=== PATIENT | female | born 1940 | race Caucasian/White ===

== ENCOUNTER 2017-09-13 16:08 | Inpatient (IN) | payer MEDICARE, MEDICAID ==
--- NOTE | 2017-09-13 17:07 | ED Physician Chart ---
ED Chief Complaint/HPI - Patient Information Date Seen:: 09/13/17 Time Seen:: 16:50 Chief Complaint:: hip pain History of Present Illness:: Patient tried to walk 2 weeks ago and fell. She has a bruise on her left breast area. She's had bilateral hip pain since 2007 when she had hip surgery. Patient is barely ambulatory. She mostly uses a wheelchair. For the last 9 months patient has been taken care at her daughter's house but the daughter is no longer able to take care of the patient and she is here for care home placement. Allergies:: Allergies Allergy/AdvReac Type Severity Reaction Status Date / Time codeine Allergy Verified 09/13/17 17:02 ondansetron Allergy Verified 09/13/17 17:00 [From Zofran (as hydrochloride)] Penicillins [PCN] Allergy Verified 09/13/17 17:00 Sulfa (Sulfonamide Allergy Verified 09/13/17 17:01 Antibiotics) tramadol Allergy Verified 09/13/17 17:01 Vitals:: Vital Signs - 8 hr 09/13/17 16:17 Temp 98.8 F HR 118 RR 18 BP 131/84 O2 Sat % 96 Historian:: Patient, Family Member Review:: Nurse's Note Reviewed ED Review of Systems - Review of Systems General/Constitutional: No fever, No chills, No weight loss, No weakness, No diaphoresis, No edema, No loss of appetite Skin: No skin lesions, No rash, No bruising Head: No headache, No light-headedness Eyes: No loss of vision, No pain, No diplopia ENT: No earache, No nasal drainage, No sore throat, No tinnitus Neck: No neck pain, No swelling, No thyromegaly, No stiffness, No mass noted Cardio Vascular: No chest pain, No palpitations, No PND, No orthopnea, No edema Pulmonary: No SOB, No cough, No sputum, No wheezing GI: No nausea, No vomiting, No diarrhea, No pain, No melena, No hematochezia, No constipation, No hematemesis G/U: No dysuria, No frequency, No hematuria Musculoskeletal: Bone or joint pain, No back pain, No muscle pain, Other (hip and chest wall pain) Endocrine: No polyuria, No polydipsia Psychiatric: No prior psych history, No depression, No anxiety, No suicidal ideation Hematopoietic: No bruising, No lymphadenopathy Allergic/Immuno: No urticaria, No angioedema Neurological: No syncope, No focal symptoms, No weakness, No paresthesia, No headache, No seizure, No dizziness, No confusion, No vertigo ED Past Medical History - Past Medical History Past Medical History: Asthma/COPD Family History: Diabetes Melitus Social History: Other (formerly smoked and used alcohol) Surgical History: Appendectomy, Hysterectomy Psychiatricy History: None Medication: Reviewed Family Medical History - Family Member Mother History Unknown: Yes ED Physical Exam - Physical Examination General/Constitutional: Awake, Well-developed, well-nourished, Alert, No distress, GCS 15, Non-toxic appearing, Ambulatory Head: Atraumatic Eyes: Lids, conjuctiva normal, PERRL, EOMI Skin: Nl inspection, No rash, No skin lesions, No ecchymosis, Well hydrated, No lymphadenopathy ENMT: External ears, nose nl, Nasal exam nl, Lips, teeth, gums nl Neck: Nontender, Full ROM w/o pain, No JVD, No nuchal rigidity, No bruit, No mass, No stridor Respiratory: Nl effort/Exclusion, Clear to Auscultation, No Wheeze/Rhonchi/Rales Cardio Vascular: RRR, No murmur, gallop, rubs, NL S1 S2 GI: No tenderness/rebounding/guarding, No organomegaly, No hernia, Normal BS's, Nondistended, No mass/bruits, No McBurney tenderness : No CVA tenderness Extremities: No tenderness or effusion, Full ROM, normal strength in all extremities, No edema, Normal digits & nails Neuro/Psych: Alert/oriented, DTR's symmetric, Normal sensory exam, Normal motor strength, Judgement/insight normal, Mood normal, Normal gait, No focal deficits Misc: Normal back, No paraspinal tenderness ED Labs/Radiology/EKG Results - Lab Results Results: Laboratory Results - last 24 hr 09/13/17 09/13/17 17:22 17:22 WBC 11.3 H RBC 3.77 L Hgb 10.2 L Hct 30.6 L MCV 81.3 MCH 27.2 MCHC Differential 33.4 RDW 19.1 Plt Count 295 MPV 8.1 Neutrophils % 77.5 Lymphocytes % 15.7 L Monocytes % 4.6 Eosinophils % 2.1 Basophils % 0.1 Sodium 139 Potassium 4.1 Chloride 107 Carbon Dioxide 24.6 Anion Gap 11.5 BUN 37 H Creatinine 1.1 Est GFR ( Amer) TNP Est GFR (Non-Af Amer) TNP BUN/Creatinine Ratio 33.6 Glucose 104 Calcium 9.1 Laboratory Results - last 24 hr 09/13/17 09/13/17 09/13/17 17:22 17:22 17:25 WBC 11.3 H RBC 3.77 L Hgb 10.2 L Hct 30.6 L MCV 81.3 MCH 27.2 MCHC Differential 33.4 RDW 19.1 Plt Count 295 MPV 8.1 Neutrophils % 77.5 Lymphocytes % 15.7 L Monocytes % 4.6 Eosinophils % 2.1 Basophils % 0.1 Sodium 139 Potassium 4.1 Chloride 107 Carbon Dioxide 24.6 Anion Gap 11.5 BUN 37 H Creatinine 1.1 Est GFR ( Amer) TNP Est GFR (Non-Af Amer) TNP BUN/Creatinine Ratio 33.6 Glucose 104 Calcium 9.1 Urine Source RANDOM Urine Color YELLOW Urine Clarity CLEAR Urine pH 5.5 Ur Specific [place] 1.025 Urine Protein TRACE Urine Glucose (UA) NEGATIVE Urine Ketones TRACE Urine Blood TRACE Urine Nitrate NEGATIVE Urine Bilirubin NEGATIVE Urine Urobilinogen 0.2 Ur Leukocyte Esterase SMALL H Urine RBC 0-2 Urine WBC 0-2 Ur Epithelial Cells FEW Urine Bacteria NONE SEEN - Radiology Results Results: Chest x-ray showed no acute disease; AP of the pelvis showed bilateral hip prosthesis in normal position ED Septic Shock - . Is Septic Shock (SBP<90, OR Lactate>4 mmol\L) present?: No - <6hrs of presentation: Vital Signs: Vital Signs - 8 hr 09/13/17 16:17 Temp 98.8 F HR 118 RR 18 BP 131/84 O2 Sat % 96 ED Reassessment (Disposition) - Diagnosis Diagnosis:: Leukocytosis; anemia; dehydration - Patient Disposition Admitted to:: Med/Surg
[2017-09-13 17:35] LABS: % BASOPHILS 0.1 % (0.0-2.0); % EOSINOPHILS 2.1 % (0.0-5.0); % LYMPHOCYTES 15.7 % (20.0-50.0); % MONOCYTES 4.6 % (2.0-10.0); % NEUTROPHILS 77.5 % (40.0-80.0); EOSINOPHILE ABSOLUTE 0.2 Th/cmm (0.1-0.4); HEMATOCRIT 30.6 % (41.0-60); HEMOGLOBIN 10.2 gm/dL (12-16); LYMPHOCYTE ABSOLUTE 1.8 Th/cmm (1.5-3.0); MEAN CELL VOLUME 81.3 fl (81-100); MEAN CORPUSCULAR HEMOGLOBIN 27.2 pg (27.0-31.0); MEAN CORPUSCULAR HGB CONC 33.4 pg (28.0-36.0); MEAN PLATELET VOLUME 8.1 fl; MONOCYTE ABSOLUTE 0.5 Th/cmm (0.3-1.0); NEUTROPHILE ABSOLUTE 8.8 Th/cmm (1.8-8.0); PLATELET COUNT 295 Th/cmm (150-400); RED BLOOD COUNT 3.77 Mil/cmm (3.80-5.20); RED CELL DISTRIBUTION WIDTH 19.1 % (11.5-20.0); WHITE BLOOD COUNT 11.3 Th/cmm (4.8-10.8)
[2017-09-13 17:48] LABS: URINE MICROSCOPIC INDICATED? YES; URINE SOURCE RANDOM
[2017-09-13 17:49] LABS: ANION GAP 11.5 (7.0-16.0); BUN - UREA NITROGEN 37 mg/dL (7-25); CALCIUM SERUM 9.1 mg/dL (8.6-10.3); CARBON DIOXIDE 24.6 mEq/L (21.0-31.0); CHLORIDE 107 mEq/L (98-107); CREATININE - SERUM 1.1 mg/dL (0.6-1.2); GLUCOSE 104 mg/dL (70-105); POTASSIUM SERUM 4.1 mEq/L (3.5-5.1); SODIUM SERUM 139 mEq/L (136-145)
[2017-09-13 17:51] LABS: URINE BILIRUBIN NEGATIVE (NEGATIVE); URINE BLOOD TRACE (NEGATIVE); URINE GLUCOSE (UA) NEGATIVE (NEGATIVE); URINE KETONE TRACE mg/dL (NEGATIVE); URINE LEUKOCYTE ESTERASE SMALL (NEGATIVE); URINE NITRATE NEGATIVE (NEGATIVE); URINE PH 5.5 (4.6 - 8.0); URINE PROTEIN TRACE mg/dL (NEGATIVE); URINE UROBILINOGEN 0.2 E.U./dL (0.2 - 1.0)
[2017-09-13 18:04] LABS: URINE COLOR YELLOW
[2017-09-13 18:05] LABS: URINE CLARITY CLEAR (CLEAR)
[2017-09-13 18:07] LABS: URINE BACTERIA NONE SEEN /hpf (NONE SEEN); URINE EPITHELIAL CELLS FEW /lpf (FEW); URINE RBC 0-2 /hpf (0-5); URINE WBC 0-2 /hpf (0-5)
[2017-09-13] MEDS ORDERED: Sodium Chloride 0.9% 1,000 ML IV ONE (18:35)
[2017-09-13] MEDS ORDERED: Ciprofloxacin 200mg Premix PB 200 MG/100 ML BAG IV ONE ×2 (20:17→21:04)
[2017-09-13] MEDS: Sodium Chloride 0.9% 1,000 ML IV SCH (23:35)
[2017-09-14] MEDS: INSULIN HUMAN REGULAR 100 UNITS/ML UNIT SUBQ SCH ×2 (00:47→07:41)
[2017-09-14 05:25] VITALS: BP 137/70
[2017-09-14 06:38] LABS: % BASOPHILS 0.4 % (0.0-2.0); % EOSINOPHILS 3.6 % (0.0-5.0); % LYMPHOCYTES 21.8 % (20.0-50.0); % MONOCYTES 6.7 % (2.0-10.0); % NEUTROPHILS 67.5 % (40.0-80.0); EOSINOPHILE ABSOLUTE 0.3 Th/cmm (0.1-0.4); HEMOGLOBIN 9.8 gm/dL (12-16); LYMPHOCYTE ABSOLUTE 1.9 Th/cmm (1.5-3.0); MEAN CELL VOLUME 80.8 fl (81-100); MEAN CORPUSCULAR HEMOGLOBIN 27.3 pg (27.0-31.0); MEAN CORPUSCULAR HGB CONC 33.7 pg (28.0-36.0); MONOCYTE ABSOLUTE 0.6 Th/cmm (0.3-1.0); NEUTROPHILE ABSOLUTE 5.9 Th/cmm (1.8-8.0); PLATELET COUNT 246 Th/cmm (150-400); RED BLOOD COUNT 3.59 Mil/cmm (3.80-5.20); RED CELL DISTRIBUTION WIDTH 18.8 % (11.5-20.0)
[2017-09-14 06:41] LABS: WHITE BLOOD COUNT 8.7 Th/cmm (4.8-10.8)
[2017-09-14 07:07] LABS: ALBUMIN 3.4 gm/dL (3.7-5.3); ALKALINE PHOSPHATASE 55 U/L (34-104); ANION GAP 9.7 (7.0-16.0); BILIRUBIN,TOTAL 0.4 mg/dL (0.3-1.0); BUN - UREA NITROGEN 30 mg/dL (7-25); CALCIUM SERUM 8.9 mg/dL (8.6-10.3); CARBON DIOXIDE 26.1 mEq/L (21.0-31.0); CHLORIDE 107 mEq/L (98-107); GLUCOSE 102 mg/dL (70-105); POTASSIUM SERUM 3.8 mEq/L (3.5-5.1); SGOT 13 U/L (13-39); SGPT/ALT 6 U/L (7-52); SODIUM SERUM 139 mEq/L (136-145); TOTAL PROTEIN,SERUM 6.9 gm/dL (6.0-8.3)
--- NOTE | 2017-09-14 08:05 | Diagnostic Imaging Report ---
CHEST X-RAY: AP view INDICATION: Pneumonia COMPARISON: None FINDINGS: Exam is limited due to body habitus. Suboptimal lung volumes are seen with chronic lung changes increased bibasilar lung markings. There may be bibasal pleural thickening. Heart size cannot be well assessed on this exam. Retrocardiac density is noted. Degenerative changes of the spine are noted with probable mild scoliosis. IMPRESSION: Suboptimal lung volumes with increased bibasilar markings which may be due to atelectasis versus less likely infiltrate. Possible hiatal hernia. If indicated, CT would further clarify
--- NOTE | 2017-09-14 08:14 | Diagnostic Imaging Report ---
Pelvis single view Indication: pain Comparison: none Findings: Bilateral hip arthroplasties are noted. Note that the distal femoral stems are incompletely visualized. No evidence of an acute fracture or hardware loosening. The SI joints demonstrate mild degenerative changes. Impression: Bilateral total hip arthroplasties. Note that the distal femoral stems are incompletely visualized on this exam. No evidence of an acute fracture x-ray evidence of hardware loosening. Consider additional views if indicated. In the setting of trauma, if clinical symptoms persist and there is continued concern for an occult fracture, follow up exams in 5-7 days is suggested.
[2017-09-14] MEDS ORDERED: Ciprofloxacin 200mg Premix PB 200 MG/100 ML BAG IV SCH (09:00)
[2017-09-14] MEDS ORDERED: Atorvastatin Calcium 10 MG TAB PO SCH (09:00)
--- NOTE | 2017-09-14 11:34 | History & Physical ---
ADMIT DATE: CHIEF COMPLAINT: Generalized weakness status post recent mechanical fall, ataxia and UTI. HISTORY OF PRESENT ILLNESS: The patient is a very pleasant 77-year-old lady, who apparently had a mechanical fall about 2 weeks ago while at home, landing on top her hospital bed bedside rail, hitting her left chest area. The patient went to [facility] where she was diagnosed with a chest wall trauma/bruising and a UTI. She was prescribed p.o. antibiotics and was sent home but since then, she has been complaining of worsening weakness and generalized tiredness. She also states that she had severe bilateral hip osteoarthritis--she underwent bilateral hip replacements in 2007, but since then has had chronic left hip pain despite the surgery. Also reports difficulty in ambulating given above, and thinks her recent fall was secondary to her chronic left hip pain and weakness. She came into the ED for the above-mentioned complaints, and current findings include a white count of 11.3 and a UA consistent with UTI. The patient was admitted to the medical/surgical floor for further management and care. PAST MEDICAL HISTORY: As noted above, history of bilateral hip osteoarthritis, DJD, essential hypertension, hyperlipidemia, vertigo, acid reflux disease, diabetes, morbid obesity. PAST SURGERIES: Bilateral hip replacement surgery back in 2007, also appendectomy and hysterectomy. FAMILY HISTORY: Positive for diabetes. SOCIAL HISTORY: Previous smoker and social drinker, currently none. Lives at home with family. ALLERGIES: She has allergies to multiple allergies including codeine, Zofran, penicillins, sulfa, tramadol. HOME MEDICATIONS: Amlodipine 5 q. day, atorvastatin 40 q. day, benazepril 40 q. day, hydrochlorothiazide 25 q. day, meclizine 25 q. 8 hours p.r.n. for dizziness, metoprolol with hydrochlorothiazide 50/12.5 q. day, naproxen 500 mg b.i.d., nitrofurantoin 100 b.i.d., omeprazole 40 q. day, Actos 45 q. day, sertraline 100 mg q. day, and simvastatin 40 at bedtime. REVIEW OF SYSTEMS: CONSTITUTIONAL: Generalized weakness and tiredness, imbalance. HEAD AND NECK: Occasional vertigo. CARDIAC: No chest pain, palpitations. PULMONARY: No cough or phlegm production. GASTROINTESTINAL: No bowel habit changes. GENITOURINARY: Mild UTI symptomatology including dysuria and frequency. NEUROLOGIC: She denies any syncopal episodes. No headaches. She does admit to imbalance/ataxia given her chronic left hip pain. PHYSICAL EXAMINATION: VITAL SIGNS: Temperature 98.3, pulse 67, respirations 18, BP 112/71, satting 95% on room air. GENERAL: She is a well-developed, obese female, not in acute distress. HEAD AND NECK: Normocephalic and atraumatic. Pupils are reactive to light. Extraocular movements are intact. Oropharynx is moist and clear. CARDIAC: Regular rate and rhythm with distant sounds. LUNGS: Clear to auscultation bilaterally. ABDOMEN: Soft, supple, nontender, nondistended, normoactive bowel sounds. LOWER EXTREMITY: There is no edema. NEUROLOGIC: Exam was not done, but she is nonfocal, able to move all 4 extremities. Cranial nerves 2-12 appear to be intact. LABORATORY DATA: White count 11.3, H and H 10/30. Chemistry was essentially within normal limits except for the BUN that was 30, mag 2.0. LFTs were essentially within normal limits. UA shows small leukocyte esterase, trace protein. DIAGNOSTICS: Chest x-ray shows suboptimal lung volumes with increased bibasilar markings, which may be due to atelectasis versus less likely infiltrate. There was a pelvic x-ray showing bilateral total hip arthroplasties. The distal femoral stems are incompletely visualized on this exam, but there is no evidence of acute fracture or evidence of hardware loosening. ASSESSMENT: 1. Acute on chronic debility. 2. Recent mechanical fall with left chest wall contusion/trauma. 3. Leukocytosis. 4. Urinary tract infection. 5. History of chronic ataxia secondary to persistent chronic left hip pain. 6. History of bilateral total hip arthroplasties secondary to severe osteoarthritis. 7. History of essential hypertension. 8. History of hyperlipidemia. 9. History of diabetes. PLAN: The patient has been admitted to the medical floor for further management and care. The patient has been placed on IV antibiotics and the patient's UA will be followed for cultures and sensitivities. She will be kept on her regular medications and a PT eval also will be ordered. I will discuss case with family for possible SNF placement. JOB# [id number] [facility]
[2017-09-14] MEDS: INSULIN ASPART, RECOMBINANT 100 UNITS/ML SUBQ SCH ×3 (13:14→21:08)
[2017-09-14] MEDS: Levofloxacin 500mg/100mL 500 MG/100 ML BAG IV SCH (13:29)
[2017-09-14] MEDS: Sodium Chloride 0.9% 1,000 ML IV SCH (18:49)
[2017-09-14 20:25] LABS: A1C % 5.1 % (4.0-6.0)
[2017-09-15 05:52] LABS: % BASOPHILS 0.7 % (0.0-2.0); % EOSINOPHILS 4.9 % (0.0-5.0); % LYMPHOCYTES 26.1 % (20.0-50.0); % MONOCYTES 7.7 % (2.0-10.0); % NEUTROPHILS 60.6 % (40.0-80.0); BASOPHILE ABSOLUTE 0.1 Th/cumm (0-0.2); EOSINOPHILE ABSOLUTE 0.4 Th/cmm (0.1-0.4); HEMATOCRIT 30.3 % (41.0-60); HEMOGLOBIN 10.2 gm/dL (12-16); LYMPHOCYTE ABSOLUTE 2.1 Th/cmm (1.5-3.0); MEAN CELL VOLUME 82.3 fl (81-100); MEAN CORPUSCULAR HEMOGLOBIN 27.7 pg (27.0-31.0); MEAN CORPUSCULAR HGB CONC 33.7 pg (28.0-36.0); MEAN PLATELET VOLUME 8.2 fl; MONOCYTE ABSOLUTE 0.6 Th/cmm (0.3-1.0); PLATELET COUNT 241 Th/cmm (150-400); RED BLOOD COUNT 3.68 Mil/cmm (3.80-5.20); RED CELL DISTRIBUTION WIDTH 18.8 % (11.5-20.0); WHITE BLOOD COUNT 8.2 Th/cmm (4.8-10.8)
[2017-09-15 06:02] LABS: ANION GAP 10.1 (7.0-16.0); BUN - UREA NITROGEN 23 mg/dL (7-25); CARBON DIOXIDE 25.8 mEq/L (21.0-31.0); CHLORIDE 106 mEq/L (98-107); CREATININE - SERUM 0.9 mg/dL (0.6-1.2); GLUCOSE 94 mg/dL (70-105); MAGNESIUM 1.9 mg/dL (1.9-2.7); POTASSIUM SERUM 3.9 mEq/L (3.5-5.1); SODIUM SERUM 138 mEq/L (136-145)
[2017-09-15] MEDS: INSULIN ASPART, RECOMBINANT 100 UNITS/ML SUBQ SCH ×4 (06:48→21:04)
[2017-09-15] MEDS: Sodium Chloride 0.9% 1,000 ML IV SCH (12:34)
[2017-09-15] MEDS: Levofloxacin 500mg/100mL 500 MG/100 ML BAG IV SCH (12:37)
[2017-09-16] MEDS: Sodium Chloride 0.9% 1,000 ML IV SCH (02:50)
[2017-09-16] MEDS: INSULIN ASPART, RECOMBINANT 100 UNITS/ML SUBQ SCH ×4 (06:50→20:49)
--- NOTE | 2017-09-16 11:19 | Discharge Summary ---
DATE OF DISCHARGE: 09/16/2017 ADMITTING DIAGNOSES: 1. Acute on chronic debility. 2. Recent mechanical fall with left chest wall contusion/trauma. 3. Mild leukocytosis. 4. Urinary tract infection. 5. History of chronic ataxia secondary to persistent chronic left hip pain. SECONDARY DIAGNOSES: Include, 1. History of bilateral total hip arthroplasties secondary to severe osteoarthritis. 2. History of essential hypertension. 3. History of hyperlipidemia. 4. History of type 2 diabetes. DISCHARGE DIAGNOSES: 1. Acute on chronic debility - clinically stable. Recent mechanical fall with chest wall contusion - clinically improved. 2. Urinary tract infection - clinically stable. 3. Unsteady gait/ataxia secondary to chronic left hip pain. CONSULTANTS: There were no consultants used during this admission. PERTINENT FINDINGS: There was pelvic x-rays done on initial assessment showing bilateral total hip arthroplasties. No evidence of acute fracture or evidence of hardware loosening were noted. MAJOR PROCEDURES: None. BRIEF HOSPITAL COURSE: The patient is a 77-year-old lady who apparently had a mechanical fall about 2 weeks ago while at home. She ended up landing on top of her hospital bedside rail hitting her left chest wall. She was assessed at [facility] and was diagnosed with chest wall contusion with bruising and also UTI. She was prescribed p.o. antibiotics and p.o. anti-inflammatories and was sent home. However, the patient's pain did not improve and her overall status has declined since then. She also reported worsening ataxia, and, therefore, the family brought her to the ED to be reevaluated and possibly be admitted. Pertinent findings on admission include a white count of 11.3, UA consistent with a UTI and above-mentioned x-ray findings. She was admitted to the Medical Surgical floor, placed on IV antibiotics, pain medications including NSAIDs and was evaluated by PT. Since admission, she has remained stable and has been able to participate with assistance of physical therapy. Initially, her white count was 11.3 and by 09/14/2017, had improved to a level of 8.7. The patient was also kept on her daily medications as scheduled. After discussion with the family and the patient's family, they have agreed for the patient to be transferred to a local correction facility for further management and care. MEDICATIONS ON DISCHARGE: Amlodipine 5 every day, benazepril 40 every day, hydrochlorothiazide 25 every day, Motrin 800 mg t.i.d. with meals for 10 days, insulin sliding scale per protocol, Levaquin 500 mg p.o. every day x7 more days, lorazepam 0.5 q. 8 hours p.r.n. for anxiety, meclizine 25 mg q. 8 hours p.r.n. for dizziness, metoprolol 50 every day, Actos 45 every day, Zoloft 150 every day, simvastatin 40 at bedtime. CONDITION ON DISCHARGE: Stable. DISPOSITION: The patient was discharged to [facility] ([place]). JOB# [id number] MTDD
[2017-09-17] MEDS: INSULIN ASPART, RECOMBINANT 100 UNITS/ML SUBQ SCH (07:27)
== END 2017-09-17 10:55 | DRG 689 ==
LOC: ER 16:08 → MSI 21:35
PROVIDERS: ADMIT Internal Medicine; ATTEND Internal Medicine
DX: N39.0 Urinary tract infection, site not specified (principal); J18.9 Pneumonia, unspecified organism; Z68.41 Body mass index [BMI] 40.0-44.9, adult; J98.11 Atelectasis; S20.219A Contusion of unspecified front wall of thorax, initial encounter; R27.0 Ataxia, unspecified; I10 Essential (primary) hypertension; E78.5 Hyperlipidemia, unspecified; E11.9 Type 2 diabetes mellitus without complications; J44.9 Chronic obstructive pulmonary disease, unspecified; D64.9 Anemia, unspecified; E86.0 Dehydration; G89.29 Other chronic pain; K21.9 Gastro-esophageal reflux disease without esophagitis; E66.01 Morbid (severe) obesity due to excess calories; Z88.5 Allergy status to narcotic agent; Z88.0 Allergy status to penicillin; Z88.2 Allergy status to sulfonamides; Z88.8 Allergy status to other drugs, medicaments and biological substances; Z96.643 Presence of artificial hip joint, bilateral; Z82.49 Family history of ischemic heart disease and other diseases of the circulatory system; Z90.49 Acquired absence of other specified parts of digestive tract; Z90.710 Acquired absence of both cervix and uterus
CPT/HCPCS: 36415-UA; 71045-TC; 72170-TC; 80048-TC; 80053-TC; 80061-TC; 81001-TC; 82948-90; 83036-90; 83690-TC; 83735-TC; 84443-TC; 85025-TC; 87086-90; 97530; J0744; J1815; J1956; J7030; X3904; Z7610

== ENCOUNTER 2017-09-23 11:23 | Inpatient (IN) | payer MEDICARE, MEDICAID ==
[2017-09-23] MEDS ORDERED: Sodium Chloride 0.9% 1,000 ML IV ONE (11:28)
--- NOTE | 2017-09-23 11:28 | ED Physician Chart ---
ED Chief Complaint/HPI - Patient Information Date Seen:: 09/23/17 Time Seen:: 11:30 Chief Complaint:: Hematemesis History of Present Illness:: onset x one day of N/V, hematemsis, and melena; no report of trauma, H/As, S/T, neck pain, C/P, cough, Abd. Pain, SOB, A/D/C, fever, chills, or urinary s/s Allergies:: Allergies Allergy/AdvReac Type Severity Reaction Status Date / Time codeine Allergy Verified 09/13/17 17:02 ondansetron Allergy Verified 09/13/17 17:00 [From Zofran (as hydrochloride)] Penicillins [PCN] Allergy Verified 09/13/17 17:00 Sulfa (Sulfonamide Allergy Verified 09/13/17 17:01 Antibiotics) tramadol Allergy Verified 09/13/17 17:01 Historian:: Patient, EMS Review:: Nurse's Note Reviewed, Old Chart Reviewed, EMS run form Reviewed ED Review of Systems - Review of Systems General/Constitutional: No fever, No chills, No weight loss, No weakness, No diaphoresis, No edema, No loss of appetite Skin: No skin lesions, No rash, No bruising Head: No headache, No light-headedness Eyes: No loss of vision, No pain, No diplopia ENT: No earache, No nasal drainage, No sore throat, No tinnitus Neck: No neck pain, No swelling, No thyromegaly, No stiffness, No mass noted Cardio Vascular: No chest pain, No palpitations, No PND, No orthopnea, No edema Pulmonary: No SOB, No cough, No sputum, No wheezing GI: Nausea, Vomiting, Diarrhea, No pain, Melena, No hematochezia, No constipation, Hematemesis G/U: No dysuria, No frequency, No hematuria, No nacturia [employer] [place]: No vaginal discharge, No abnormal vaginal bleed, No contraction Musculoskeletal: No bone or joint pain, No back pain, No muscle pain Endocrine: No polyuria, No polydipsia Psychiatric: No prior psych history, No depression, No anxiety, No suicidal ideation, No homicidal ideation, No auditory hallucination, No visual hallucination Hematopoietic: No bruising, No lymphadenopathy Allergic/Immuno: No urticaria, No angioedema Neurological: No syncope, No focal symptoms, No weakness, No paresthesia, No headache, No seizure, No dizziness, No confusion, No vertigo ED Past Medical History - Past Medical History Obtainable: Yes Past Medical History: HTN, DM, Dyslipidemia Family History: Diabetes Melitus, HTN Social History: Non Smoker, No Alcohol, No Drug Use, , Care Facility Surgical History: None Psychiatricy History: None Medication: Reviewed Family Medical History - Family Member Mother History Unknown: Yes ED Physical Exam - Physical Examination General/Constitutional: Awake, Well-developed, well-nourished, Alert, No distress, GCS 15, Non-toxic appearing, Ambulatory Head: Atraumatic Eyes: Lids, conjuctiva normal, PERRL, EOMI Skin: Nl inspection, No rash, No skin lesions, No ecchymosis, Well hydrated, No lymphadenopathy ENMT: External ears, nose nl, TM canals nl, Nasal exam nl, Lips, teeth, gums nl , Oropharynx nl, Tonsils nl Neck: Nontender, Full ROM w/o pain, No JVD, No nuchal rigidity, No bruit, No mass, No stridor Other Neck comments:: no meningeal signs; supple Respiratory: Nl effort/Exclusion, Clear to Auscultation, No Wheeze/Rhonchi/Rales Cardio Vascular: RRR, No murmur, gallop, rubs, NL S1 S2, Carotid/Femoral/Distal pulses equal bilaterally GI: No tenderness/rebounding/guarding, No organomegaly, No hernia, Normal BS's, Nondistended, No mass/bruits, No McBurney tenderness Other GI comments:: no pulsatile masses : No CVA tenderness Extremities: No tenderness or effusion, Full ROM, normal strength in all extremities, No edema, Normal digits & nails Neuro/Psych: Alert/oriented, DTR's symmetric, Normal sensory exam, Normal motor strength, Judgement/insight normal, Mood normal, Normal gait, No focal deficits Misc: Normal back, No paraspinal tenderness ED Labs/Radiology/EKG Results - Lab Results Comments:: WBC: 13.9; H/H: 8.5/24.9; BUN: 146; Cr: 3.6; U/A: + Pyuria; Na+: 134; K+: 5.2 - EKG Interpretations EKG Time:: 11:44 Rate & Rhythm: 80; NSR Comments:: IRBBB; non-specific st-t changes ED Septic Shock - . Is Septic Shock (SBP<90, OR Lactate>4 mmol\L) present?: No ED Reassessment (Disposition) - Reassessment Reassessment Condition:: Improved - Diagnosis Diagnosis:: Hematemesis; N/V; GI Bleed; UTI; Anemia; Leukocytosis; Sepsis; Renal Failure; Hyperkalemia; Hyponatremia; Dehydration; Pre-Renal Azotemia - Aftercare/Follow up Instructions Aftercare/Follow-Up Instructions:: Counseled pt regarding lab results/diagnosis & need follow up, Counseled pt & family regarding lab results/diagnosis & need follow up - Patient Disposition Discharge/Transfer:: Acute Care w/in this hosp Accepting Physician:: Dr. Buckley Time Called:: 1245 Time Responded:: 12:45 Admitted to:: ICU Spoke to:: Dr. Buckley Admitting Medical Physician:: Dr. Buckley Condition at Disposition:: Stable, Improved
[2017-09-23 12:04] LABS: % BASOPHILS 0.3 % (0.0-2.0); % EOSINOPHILS 0.8 % (0.0-5.0); % LYMPHOCYTES 11.2 % (20.0-50.0); % MONOCYTES 2.5 % (2.0-10.0); % NEUTROPHILS 85.2 % (40.0-80.0); EOSINOPHILE ABSOLUTE 0.1 Th/cmm (0.1-0.4); HEMATOCRIT 24.9 % (41.0-60); HEMOGLOBIN 8.5 gm/dL (12-16); LYMPHOCYTE ABSOLUTE 1.6 Th/cmm (1.5-3.0); MEAN CELL VOLUME 81.6 fl (81-100); MEAN CORPUSCULAR HEMOGLOBIN 27.7 pg (27.0-31.0); MEAN PLATELET VOLUME 8.2 fl; MONOCYTE ABSOLUTE 0.3 Th/cmm (0.3-1.0); NEUTROPHILE ABSOLUTE 11.9 Th/cmm (1.8-8.0); PLATELET COUNT 302 Th/cmm (150-400); RED BLOOD COUNT 3.05 Mil/cmm (3.80-5.20); RED CELL DISTRIBUTION WIDTH 18.7 % (11.5-20.0); WHITE BLOOD COUNT 13.9 Th/cmm (4.8-10.8)
[2017-09-23 12:20] LABS: PROTHROMBIN TIME (TEST) 10.4 SECONDS (9.5-11.5)
[2017-09-23 12:39] LABS: ALB/GLOB RATIO 1.2 (1.0-1.8); ALBUMIN 3.7 gm/dL (3.7-5.3); ALKALINE PHOSPHATASE 44 U/L (34-104); ANION GAP 19.1 (7.0-16.0); BILIRUBIN,TOTAL 0.2 mg/dL (0.3-1.0); CALCIUM SERUM 8.7 mg/dL (8.6-10.3); CARBON DIOXIDE 19.1 mEq/L (21.0-31.0); CHLORIDE 101 mEq/L (98-107); CHOLESTEROL 135 mg/dL (<200); CREATININE - SERUM 3.6 mg/dL (0.6-1.2); CREATININE KINASE 19 U/L (30-223); GLUCOSE 145 mg/dL (70-105); HDL -HIGH DENSITY LIPOPROTEIN 33 mg/dL (23-92); POTASSIUM SERUM 5.2 mEq/L (3.5-5.1); SGOT 9 U/L (13-39); SGPT/ALT 6 U/L (7-52); SODIUM SERUM 134 mEq/L (136-145); TOTAL PROTEIN,SERUM 6.7 gm/dL (6.0-8.3); TRIGLYCERIDES 150 mg/dL (<150)
[2017-09-23 12:43] LABS: URINE MICROSCOPIC INDICATED? YES; URINE SOURCE CLEAN C
[2017-09-23 12:44] LABS: BUN - UREA NITROGEN 146 mg/dL (7-25)
[2017-09-23 12:45] LABS: URINE BILIRUBIN NEGATIVE (NEGATIVE); URINE BLOOD SMALL (NEGATIVE); URINE COLOR YELLOW; URINE GLUCOSE (UA) 100 mg/dL (NEGATIVE); URINE KETONE NEGATIVE (NEGATIVE); URINE LEUKOCYTE ESTERASE TRACE (NEGATIVE); URINE NITRATE NEGATIVE (NEGATIVE); URINE PROTEIN 30 mg/dL (NEGATIVE); URINE UROBILINOGEN 0.2 E.U./dL (0.2 - 1.0)
[2017-09-23 12:45] LABS: AMYLASE SERUM 53 U/L (29-103); LIPASE 34 U/L (11-82)
[2017-09-23 12:50] LABS: URINE CLARITY HAZY (CLEAR)
[2017-09-23 12:52] LABS: URINE BACTERIA 1+ /hpf (NONE SEEN); URINE EPITHELIAL CELLS FEW /lpf (FEW); URINE YEAST MODERATE /hpf (NONE SEEN)
[2017-09-23 12:53] LABS: URINE COARSE GRANULAR CAST 0-2 /lpf (NONE SEEN)
[2017-09-23] MEDS ORDERED: Levofloxacin 500mg/100mL 500 MG/100 ML BAG IV ONE (12:59)
[2017-09-23] MEDS ORDERED: Metoclopramide 5 mg/mL 2mL Vial IVP PRN (13:40)
[2017-09-23] MEDS ORDERED: Ciprofloxacin 200mg Premix PB 200 MG/100 ML BAG IV SCH (15:00)
[2017-09-23] MEDS: Ciprofloxacin 400mg Premix PB 400 MG/200 ML BAG IV SCH (15:49)
[2017-09-23] MEDS: Sodium Chloride 0.9% 1,000 ML IV SCH (15:49)
[2017-09-23 16:01] VITALS: BP 81/40
[2017-09-23 17:01] LABS: HEMATOCRIT 26.6 % (41.0-60); HEMOGLOBIN 9.1 gm/dL (12-16)
[2017-09-23 19:29] LABS: EOSINOPHIL SMEAR SOURCE URINE
[2017-09-23 19:30] LABS: EOSINOPHILS SMEAR COUNT NONE SEEN (NONE SEEN)
[2017-09-23] MEDS: INSULIN ASPART SLIDING SCALE 100 UNITS/ML UNIT SUBQ SCH (21:31)
[2017-09-23] MEDS: Pantoprazole 80 MG in Sodium Chloride 0.9% 100 ML IV SCH (21:35)
[2017-09-23 22:40] LABS: % BASOPHILS 0.4 % (0.0-2.0); % EOSINOPHILS 1.6 % (0.0-5.0); % LYMPHOCYTES 21.9 % (20.0-50.0); % MONOCYTES 6.2 % (2.0-10.0); % NEUTROPHILS 69.9 % (40.0-80.0); EOSINOPHILE ABSOLUTE 0.2 Th/cmm (0.1-0.4); HEMATOCRIT 23.9 % (41.0-60); HEMOGLOBIN 8.3 gm/dL (12-16); LYMPHOCYTE ABSOLUTE 2.6 Th/cmm (1.5-3.0); MEAN CELL VOLUME 81.3 fl (81-100); MEAN CORPUSCULAR HEMOGLOBIN 28.1 pg (27.0-31.0); MEAN CORPUSCULAR HGB CONC 34.6 pg (28.0-36.0); MEAN PLATELET VOLUME 8.2 fl; MONOCYTE ABSOLUTE 0.7 Th/cmm (0.3-1.0); NEUTROPHILE ABSOLUTE 8.2 Th/cmm (1.8-8.0); PLATELET COUNT 247 Th/cmm (150-400); RED BLOOD COUNT 2.94 Mil/cmm (3.80-5.20); RED CELL DISTRIBUTION WIDTH 18.4 % (11.5-20.0); WHITE BLOOD COUNT 11.7 Th/cmm (4.8-10.8)
[2017-09-24] MEDS: Sodium Chloride 0.9% 1,000 ML IV SCH ×2 (00:23→16:33)
[2017-09-24] MEDS ORDERED: Norepinephrine 4 mg/4mL Vial IV ONE (02:42)
[2017-09-24] MEDS: Pantoprazole 80 MG in Sodium Chloride 0.9% 100 ML IV SCH ×2 (03:35→15:24)
[2017-09-24 05:01] LABS: % BASOPHILS 0.5 % (0.0-2.0); % EOSINOPHILS 2.3 % (0.0-5.0); % LYMPHOCYTES 21.6 % (20.0-50.0); % MONOCYTES 5.4 % (2.0-10.0); % NEUTROPHILS 70.2 % (40.0-80.0); BASOPHILE ABSOLUTE 0.1 Th/cumm (0-0.2); EOSINOPHILE ABSOLUTE 0.3 Th/cmm (0.1-0.4); HEMATOCRIT 22.5 % (41.0-60); LYMPHOCYTE ABSOLUTE 2.9 Th/cmm (1.5-3.0); MEAN CELL VOLUME 81.4 fl (81-100); MEAN CORPUSCULAR HGB CONC 34.4 pg (28.0-36.0); MEAN PLATELET VOLUME 7.7 fl; MONOCYTE ABSOLUTE 0.7 Th/cmm (0.3-1.0); NEUTROPHILE ABSOLUTE 9.4 Th/cmm (1.8-8.0); PLATELET COUNT 271 Th/cmm (150-400); RED BLOOD COUNT 2.77 Mil/cmm (3.80-5.20); RED CELL DISTRIBUTION WIDTH 18.4 % (11.5-20.0); WHITE BLOOD COUNT 13.4 Th/cmm (4.8-10.8)
[2017-09-24 05:07] LABS: HEMOGLOBIN 7.7 gm/dL (12-16)
[2017-09-24 05:19] LABS: ALB/GLOB RATIO 1.2 (1.0-1.8); ALBUMIN 3.1 gm/dL (3.7-5.3); ALKALINE PHOSPHATASE 36 U/L (34-104); ANION GAP 16.7 (7.0-16.0); BILIRUBIN,TOTAL 0.2 mg/dL (0.3-1.0); CALCIUM SERUM 7.7 mg/dL (8.6-10.3); CARBON DIOXIDE 16.3 mEq/L (21.0-31.0); CHLORIDE 108 mEq/L (98-107); CREATININE - SERUM 3.2 mg/dL (0.6-1.2); GLUCOSE 123 mg/dL (70-105); MAGNESIUM 2.3 mg/dL (1.9-2.7); PHOSPHOROUS 6.6 mg/dL (2.5-5.0); SGOT 8 U/L (13-39); SGPT/ALT 3 U/L (7-52); SODIUM SERUM 137 mEq/L (136-145); TOTAL PROTEIN,SERUM 5.8 gm/dL (6.0-8.3)
[2017-09-24 05:26] LABS: BUN - UREA NITROGEN 139 mg/dL (7-25)
[2017-09-24] MEDS: INSULIN ASPART SLIDING SCALE 100 UNITS/ML UNIT SUBQ SCH ×4 (06:53→21:22)
--- NOTE | 2017-09-24 09:19 | Diagnostic Imaging Report ---
Exam: Ultrasound examination of the kidneys. HISTORY: Acute renal insufficiency. Findings: Real-time ultrasound summation kidneys performed multiple planes. The study demonstrates right kidney measuring 11.5 x 5.4 x 6.8 mm diameter with a question of 2.3 cm cyst. Left kidney measures 10.8 x 5.4 x 6.4 cm diameter with multiple cysts largest one measuring 2.5 x 2.5 cm diameter. Uterine bladder is not seen. The study is limited due to patient body habitus. IMPRESSION: Bilateral renal cysts, no visualized the urinary bladder. The study is limited due to patient body habitus.
--- NOTE | 2017-09-24 09:27 | Diagnostic Imaging Report ---
Portable chest x-ray Time: 1649 hours History: Congestion Allowing for portable technique the heart size is normal. No focal pulmonary parenchymal processes. No hilar or mediastinal abnormalities. Impression: No acute abnormalities.
[2017-09-24 12:36] LABS: % BASOPHILS 0.5 % (0.0-2.0); % EOSINOPHILS 2.3 % (0.0-5.0); % LYMPHOCYTES 17.1 % (20.0-50.0); % MONOCYTES 4.2 % (2.0-10.0); % NEUTROPHILS 75.9 % (40.0-80.0); BASOPHILE ABSOLUTE 0.1 Th/cumm (0-0.2); EOSINOPHILE ABSOLUTE 0.2 Th/cmm (0.1-0.4); HEMATOCRIT 26.1 % (41.0-60); HEMOGLOBIN 8.7 gm/dL (12-16); LYMPHOCYTE ABSOLUTE 1.7 Th/cmm (1.5-3.0); MEAN CELL VOLUME 81.5 fl (81-100); MEAN CORPUSCULAR HEMOGLOBIN 27.2 pg (27.0-31.0); MEAN CORPUSCULAR HGB CONC 33.4 pg (28.0-36.0); MEAN PLATELET VOLUME 7.6 fl; MONOCYTE ABSOLUTE 0.4 Th/cmm (0.3-1.0); NEUTROPHILE ABSOLUTE 7.8 Th/cmm (1.8-8.0); PLATELET COUNT 242 Th/cmm (150-400); RED BLOOD COUNT 3.21 Mil/cmm (3.80-5.20); RED CELL DISTRIBUTION WIDTH 17.7 % (11.5-20.0)
[2017-09-24 12:38] LABS: WHITE BLOOD COUNT 10.2 Th/cmm (4.8-10.8)
[2017-09-24] MEDS: Fluconazole 100mg/50mL 100 MG/50 ML BOTTLE IV SCH (14:00)
--- NOTE | 2017-09-24 14:14 | Consultation ---
DATE OF CONSULTATION: 09/24/2017 INPATIENT GASTROINTESTINAL CONSULTATION CONSULTING PHYSICIAN: Leanne Buckley MD REASON FOR CONSULTATION: Hematemesis and melena. HISTORY OF PRESENT ILLNESS: The patient is a 77-year-old female with past medical history significant for arthritis, hypertension, type 2 diabetes, hyperlipidemia and obesity, coming to the hospital with one day of black colored emesis as well as black colored stool. The patient notes that she does take naproxen at home on a regular basis for arthritis related pain. Yesterday, she began having pain in her mid abdomen and then noted the onset of black colored vomiting as well as black colored stool. She reports this has never happened before and she has never before had an upper endoscopy. This concerned her enough to the point where she came into the Emergency Room and was found to have a low hemoglobin level and low blood pressure and was admitted to the ICU. She is now on a Protonix drip and hemoglobin this morning was 7.7 and she is receiving a unit of blood. PAST MEDICAL HISTORY: Hypertension, type 2 diabetes, hyperlipidemia, arthritis. PAST SURGICAL HISTORY: Appendectomy. FAMILY HISTORY: Noncontributory. SOCIAL HISTORY: The patient has no current drinking or smoking or illicit drug use. ALLERGIES: Reports an allergy to codeine, iodine, ondansetron, penicillin. CURRENT MEDICATIONS: Ciprofloxacin, insulin, Reglan. PHYSICAL EXAMINATION: VITAL SIGNS: Blood pressure is 102/68, pulse 86 beats per minute, respiratory rate of 14, oxygenation is 98%. GENERAL: The patient is lying in bed, alert and oriented x 3. She is in no apparent distress. HEAD, EARS, EYES, NOSE AND THROAT: Normocephalic and atraumatic appearing head. Pupils are equal and reactive to light. Extraocular muscles are intact with moist mucous membranes. NECK: Supple. No JVD or thyromegaly or lymphadenopathy. CHEST: Clear to auscultation bilaterally. CARDIOVASCULAR: S1 and S2 are present. Regular rate and rhythm. ABDOMEN: Obese, soft. There is tenderness to palpation in the epigastric region. No guarding, no rebound. No fluid distention. EXTREMITIES: No pitting edema is noted. Pulses are not present. SKIN: There is no obvious jaundice or cyanosis. LABORATORY DATA AND DIAGNOSTIC STUDIES: White blood cell count is 13.4, hemoglobin 7.7, platelet count is 271. INR is 1.0. Sodium 137, BUN is 139, creatinine is 3.2. AST is 8, ALT 3, total bilirubin 0.2. No abdominal imaging has been performed. IMPRESSION: This is a 77-year-old female with history of arthritis, on naproxen, who comes into the hospital with coffee-ground emesis and melena and anemia. 1. Coffee-ground emesis. 2. Anemia. 3. Melena. 4. Arthritis, using naproxen. DISCUSSION: Almost assuredly this patient is having an upper gastrointestinal bleeding as manifested by coffee-ground emesis and melena with anemia. She also has an elevated BUN level, which is likely reflective of the upper gastrointestinal bleed. Since admission, the patient has been maintained on a Protonix drip and she is now receiving a unit of blood. Differential diagnosis includes peptic ulcer disease, esophagitis, gastric malignancy, Dieulafoy lesion and an upper endoscopy is warranted for evaluation and possible therapeutic options. Given difficulty of performing endoscopy over the weekend at this hospital, we will plan to do this on Tuesday if the patient is stable. However, if she is not stable and continues to have low hemoglobin levels that are dropping, we may need to call in the team to do this tomorrow. RECOMMENDATIONS: 1. We will check the hemoglobin levels; if downtrending, she will need further blood. 2. If the patient is stable, plan for EGD Tuesday. If she has further drop in her hemoglobin requiring multiple blood transfusions, we will try to attempt to do this tomorrow with the call team. 3. Continue Protonix drip. 4. Clear liquids are okay for today. 5. Trend the CBC. 6. No more NSAIDs going forward. Further recommendations to follow the endoscopy. Thank you for allowing me to participate in her care. Please call for any further questions. JOB# [id number]
[2017-09-24] MEDS: Ciprofloxacin 400mg Premix PB 400 MG/200 ML BAG IV SCH (15:35)
[2017-09-24 16:23] LABS: CREATININEURINE 28.5 mg/dl
[2017-09-24 16:24] LABS: MICROALBUMIN RANDOM RUINE 127.2
--- NOTE | 2017-09-24 19:33 | History & Physical ---
ADMIT DATE: 09/24/2017 ATTENDING PHYSICIAN: Leanne Buckley M.D. [employer] CLAIM EXAMINER: Dr. Cameron Guthrie. REASON FOR CONSULTATION: Worsening kidney function, electrolyte imbalance, and fluid management. HISTORY OF PRESENT ILLNESS: This is a 77-year-old female with past medical history of essential hypertension, who was brought in because of nausea and vomiting. One day prior to admission, the patient ate lots of black beans. She has not eaten these beans before. A few hours prior to admission, she suddenly developed abdominal discomfort. This was followed by nausea and vomiting approximately 4-5 times. She describes her vomitus as being black in material, but non-mucoid. She was eventually brought to the Emergency Room. Her hemoglobin/hematocrit upon arrival were 9.1/26.6. She was started on Protonix drip. Chest x-ray revealed no acute disease. Renal ultrasound done showed bilateral cyst. She was admitted with a BUN/creatinine of 146/3.6. She denied any history of kidney failure in the past. She also denied any diarrhea. PAST MEDICAL HISTORY: 1. Status post mechanical fall. 2. Essential hypertension. 3. Dyslipidemia. 4. GERD. 5. Bilateral hip DJD. 6. Morbid obesity. PAST SURGICAL HISTORY: 1. Status post appendectomy. 2. Status post cholecystectomy. 3. Status post hysterectomy. 4. Status post bilateral hip replacements. CURRENT MEDICATIONS: She is currently on ciprofloxacin, aspart, metoclopramide, pantoprazole. ALLERGIES: ALLERGIC TO CODEINE, IODINE, ONDANSETRON, AND PENICILLINS. SOCIAL HISTORY: She did have a history of smoking and alcohol consumption, but quit many years ago. 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 FAMILY HISTORY: Positive for diabetes. REVIEW OF SYSTEMS: CONSTITUTIONAL: She did complain of some weakness. Appetite had deteriorated. No fever or chills. HEENT: No mention of headaches, no dizziness. Wears glasses due to poor vision. Hearing acuity has also diminished due to age. CARDIORESPIRATORY: No chest pain, palpitations, diaphoresis or cough. No shortness of breath. She does have a history of hypertension. MUSCULOSKELETAL: She has multiple joint arthralgias. GENITOURINARY: No history of kidney failure; however, comes in with acute kidney injury. Denied any dysuria nor hematuria. HEMATOLOGIC: The patient has a history of anemia of chronic disease. GASTROINTESTINAL: The patient did have a history of nausea and vomiting with blackish material. Denied any diarrhea. NEUROPSYCH: No syncopal episode nor seizure activity. Denied any neuropathy. PHYSICAL EXAMINATION: GENERAL: The patient is alert and obese side, not in distress. VITAL SIGNS: Her blood pressure is 97/41, pulse 81. She is afebrile. SKIN: Poor turgor, warm, no rash, no jaundice appreciated. HEENT: Head normocephalic, atraumatic. Eyes: Extraocular muscles intact. Pupils equal, round, reactive to light and accommodates. Anicteric sclerae. [place] conjunctivae. NECK: Supple, no adenopathy, no thyromegaly, no bruits. CHEST AND CARDIOVASCULAR: S1, S2, distant heart sounds due to size. No murmur, rub, or gallop appreciated. Point of maximal impulse unable to assess due to size. LUNGS: Equal expansion, no use of accessory muscles. No supraclavicular retractions. Decreased breath sounds, but clear to auscultation without any wheeze. ABDOMEN: Globular, soft. Positive for bowel sounds. No bruits either diastolic or systolic. GENITOURINARY: Normal appearing female genitalia. RECTAL: The patient refused because this has been done several times already. MUSCULOSKELETAL: No effusions present in her joints with limited range of motion. EXTREMITIES: No evidence of edema, cyanosis nor clubbing with palpable femoral, but unable to fully appreciate popliteal and dorsalis pedis pulses due to size. NEUROLOGIC: The patient is alert, verbal, motor is 5/5. Cranial nerves 3-12 intact. Sensory intact. LABORATORY DATA: Labs did reveal white count 13.4, hemoglobin 7.7, hematocrit 32.5, platelets 271. Sodium 137, potassium 4, chloride 108, bicarbonate 16, BUN 139, creatinine 3.2, glucose 123. IMPRESSION: 1. Acute kidney injury. Possibility of persistent nausea and vomiting and inability to replenish fluid losses, both sensible and insensible losses will lead to prerenal azotemia. Her physical exam showing a poor skin turgor with dry oral mucosa, hypotensive, and a very concentrated urine are suggestive of dehydration, which could eventually lead to a decrease in effective circulating volume. Thus, her prerenal azotemia may have progressed to acute tubular injury. We also need to consider any underlying complicated UTI based on urinalysis, which revealed presence of multiple yeast. This could lead to acute interstitial nephritis. 2. Gastrointestinal bleed, which may involve both upper and lower, which may be secondary to peptic ulcer disease, erosive gastritis/esophagitis, and slow lower gastrointestinal bleed. 3. History of mechanical fall. 4. Essential hypertension. 5. Dyslipidemia. 6. Gastroesophageal reflux disease. 7. Bilateral hip degenerative joint disease, status post hip replacement. 8. Morbid obesity. 9. Anemia of chronic disease. PLAN: 1. Continue with IV infusion. 2. Continue pressors as needed. 3. Urinalysis. 4. Urine C and S. 5. Urine sodium, eosinophils, and creatinine. 6. Renal ultrasound. 7. Urine microalbumin to creatinine ratio. 8. Transfuse patient as needed. 9. Follow up lipase level. 10. Serial electrolytes as well as CBC. 11. Diflucan. 12. GI consult with possible endoscopy/colonoscopy. Thank you, Dr. Buckley for this consult. We will follow the patient closely with you. JOB# [id number]
[2017-09-25] MEDS: Pantoprazole 80 MG in Sodium Chloride 0.9% 100 ML IV SCH ×3 (00:44→20:55)
[2017-09-25 04:46] LABS: % BASOPHILS 1.1 % (0.0-2.0); % EOSINOPHILS 3.2 % (0.0-5.0); % LYMPHOCYTES 20.1 % (20.0-50.0); % MONOCYTES 5.8 % (2.0-10.0); % NEUTROPHILS 69.8 % (40.0-80.0); BASOPHILE ABSOLUTE 0.1 Th/cumm (0-0.2); EOSINOPHILE ABSOLUTE 0.3 Th/cmm (0.1-0.4); HEMATOCRIT 24.1 % (41.0-60); HEMOGLOBIN 8.1 gm/dL (12-16); LYMPHOCYTE ABSOLUTE 1.8 Th/cmm (1.5-3.0); MEAN CELL VOLUME 82.4 fl (81-100); MEAN CORPUSCULAR HEMOGLOBIN 27.6 pg (27.0-31.0); MEAN CORPUSCULAR HGB CONC 33.5 pg (28.0-36.0); MEAN PLATELET VOLUME 7.8 fl; MONOCYTE ABSOLUTE 0.5 Th/cmm (0.3-1.0); NEUTROPHILE ABSOLUTE 6.4 Th/cmm (1.8-8.0); RED BLOOD COUNT 2.93 Mil/cmm (3.80-5.20); RED CELL DISTRIBUTION WIDTH 17.9 % (11.5-20.0); WHITE BLOOD COUNT 9.1 Th/cmm (4.8-10.8)
[2017-09-25 04:58] LABS: PLATELET COUNT 176 Th/cmm (150-400)
[2017-09-25 05:02] LABS: ANION GAP 12.5 (7.0-16.0); CARBON DIOXIDE 17.9 mEq/L (21.0-31.0); CHLORIDE 114 mEq/L (98-107); CREATININE - SERUM 2.1 mg/dL (0.6-1.2); GLUCOSE 90 mg/dL (70-105); LIPASE 46 U/L (11-82); POTASSIUM SERUM 3.4 mEq/L (3.5-5.1); SODIUM SERUM 141 mEq/L (136-145)
[2017-09-25 05:05] LABS: BUN - UREA NITROGEN 106 mg/dL (7-25)
[2017-09-25] MEDS: Sodium Chloride 0.9% 1,000 ML IV SCH ×2 (06:07→15:39)
[2017-09-25] MEDS: INSULIN ASPART SLIDING SCALE 100 UNITS/ML UNIT SUBQ SCH ×4 (07:30→20:41)
--- NOTE | 2017-09-25 08:44 | GI Progress Note ---
Subjective - Review of Systems Service Date: 09/25/17 Subjective: Hgb down to 8.1 this AM, no further over bleeding. Objective - Results Result Diagrams: 09/25/17 04:30 09/25/17 04:30 Recent Labs: Laboratory Last Values WBC 9.1 Th/cmm (4.8-10.8) 09/25/17 04:30 RBC 2.93 Mil/cmm (3.80-5.20) L 09/25/17 04:30 Hgb 8.1 gm/dL (12-16) L 09/25/17 04:30 Hct 24.1 % (41.0-60) L 09/25/17 04:30 MCV 82.4 fl (81-100) 09/25/17 04:30 MCH 27.6 pg (27.0-31.0) 09/25/17 04:30 MCHC Differential 33.5 pg (28.0-36.0) 09/25/17 04:30 RDW 17.9 % (11.5-20.0) 09/25/17 04:30 Plt Count 176 Th/cmm (150-400) D 09/25/17 04:30 MPV 7.8 fl 09/25/17 04:30 Neutrophils % 69.8 % (40.0-80.0) 09/25/17 04:30 Lymphocytes % 20.1 % (20.0-50.0) 09/25/17 04:30 Monocytes % 5.8 % (2.0-10.0) 09/25/17 04:30 Eosinophils % 3.2 % (0.0-5.0) 09/25/17 04:30 Basophils % 1.1 % (0.0-2.0) 09/25/17 04:30 Eos Smear Source URINE 09/23/17 18:00 Eos Smear Total Cells NONE SEEN (NONE SEEN) 09/23/17 18:00 PT 10.4 SECONDS (9.5-11.5) 09/23/17 11:45 INR 1.00 (0.5-1.4) 09/23/17 11:45 Sodium 141 mEq/L (136-145) 09/25/17 04:30 Potassium 3.4 mEq/L (3.5-5.1) L 09/25/17 04:30 Chloride 114 mEq/L (98-107) H 09/25/17 04:30 Carbon Dioxide 17.9 mEq/L (21.0-31.0) L 09/25/17 04:30 Anion Gap 12.5 (7.0-16.0) 09/25/17 04:30 BUN 106 mg/dL (7-25) H* 09/25/17 04:30 Creatinine 2.1 mg/dL (0.6-1.2) H 09/25/17 04:30 Est GFR ( Amer) TNP 09/25/17 04:30 Est GFR (Non-Af Amer) TNP 09/25/17 04:30 BUN/Creatinine Ratio 50.5 09/25/17 04:30 Glucose 90 mg/dL (70-105) 09/25/17 04:30 POC Glucose 88 MG/DL (70 - 105) 09/25/17 05:42 Calcium 8.0 mg/dL (8.6-10.3) L 09/25/17 04:30 Phosphorus 6.6 mg/dL (2.5-5.0) H 09/24/17 04:50 Magnesium 2.3 mg/dL (1.9-2.7) 09/24/17 04:50 Total Bilirubin 0.2 mg/dL (0.3-1.0) L 09/24/17 04:50 AST 8 U/L (13-39) L 09/24/17 04:50 ALT 3 U/L (7-52) L 09/24/17 04:50 Alkaline Phosphatase 36 U/L (34-104) 09/24/17 04:50 Creatine Kinase 19 U/L (30-223) L 09/23/17 11:45 Troponin I < 0.01 ng/mL (0.01-0.05) L 09/23/17 11:45 B-Natriuretic Peptide 45.4 pg/mL (5.0-100.0) 09/23/17 11:45 Total Protein 5.8 gm/dL (6.0-8.3) L 09/24/17 04:50 Albumin 3.1 gm/dL (3.7-5.3) L 09/24/17 04:50 Globulin 2.7 gm/dL 09/24/17 04:50 Albumin/Globulin Ratio 1.2 (1.0-1.8) 09/24/17 04:50 Triglycerides 150 mg/dL (<150) 09/23/17 11:45 Cholesterol 135 mg/dL (<200) 09/23/17 11:45 LDL Cholesterol Direct 72 mg/dL (75-193) L 09/23/17 11:45 HDL Cholesterol 33 mg/dL (23-92) 09/23/17 11:45 Amylase 53 U/L (29-103) 09/23/17 11:45 Lipase 46 U/L (11-82) 09/25/17 04:30 Urine Source CLEAN C 09/23/17 12:15 Urine Color YELLOW 09/23/17 12:15 Urine Clarity HAZY (CLEAR) 09/23/17 12:15 Urine pH 6.0 (4.6 - 8.0) 09/23/17 12:15 Ur Specific [place] 1.020 (1.005-1.030) 09/23/17 12:15 Urine Protein 30 mg/dL (NEGATIVE) H 09/23/17 12:15 Urine Glucose (UA) 100 mg/dL (NEGATIVE) H 09/23/17 12:15 Urine Ketones NEGATIVE mg/dL (NEGATIVE) 09/23/17 12:15 Urine Blood SMALL (NEGATIVE) H 09/23/17 12:15 Urine Nitrate NEGATIVE (NEGATIVE) 09/23/17 12:15 Urine Bilirubin NEGATIVE (NEGATIVE) 09/23/17 12:15 Urine Urobilinogen 0.2 E.U./dL (0.2 - 1.0) 09/23/17 12:15 Ur Leukocyte Esterase TRACE (NEGATIVE) H 09/23/17 12:15 Urine RBC 2-5 /hpf (0-5) 09/23/17 12:15 Urine WBC 6-10 /hpf (0-5) H 09/23/17 12:15 Ur Epithelial Cells FEW /lpf (FEW) 09/23/17 12:15 Urine Bacteria 1+ /hpf (NONE SEEN) H 09/23/17 12:15 Coarse Granular Casts 0-2 /lpf (NONE SEEN) H 09/23/17 12:15 Urine Yeast MODERATE /hpf (NONE SEEN) H 09/23/17 12:15 Ur Random Sodium 88 mmol/L 09/23/17 18:00 Urine Creatinine 28.5 mg/dl 09/23/17 18:00 Urine Microalbumin 127.2 09/23/17 18:00 Microalb/Creat Ratio 446.3 09/23/17 18:00 Stool Occult Blood NEGATIVE (NEGATIVE) 09/24/17 04:00 Blood Type A POSITIVE 09/23/17 11:45 Antibody Screen NEGATIVE 09/23/17 11:45 Crossmatch See Detail 09/23/17 11:45 - Physical Exam Vitals and I&O: Vital Signs Temp 98.4 F 09/25/17 04:00 Pulse 75 09/25/17 06:00 Resp 13 09/25/17 06:00 BP 130/43 09/25/17 06:00 Pulse Ox 98 09/25/17 06:00 Intake & Output 09/24/17 09/25/17 09/25/17 18:59 06:59 18:59 Intake Total 5010.846 6696.333 Output Total 1700 1350 Balance -376.327 -156.667 Weight (lbs) 104.326 kg 99.79 kg Intake: Intake, IV Amount 1674.880 5940.333 Fluconazole 100mg/50mL 50 100 mg In 50 ml @ 50 mls/ hr IV Q24HR [facility] Rx#: [id number] Norepinephrine 4 mg In 173.673 Dextrose 5% 250 ml @ 4 MCG/MIN 15.24 mls/hr IV TITR PRN Rx#:[id number] Pantoprazole 80 mg In 100 93.333 Sodium Chloride 0.9% 100 ml @ 10 mls/hr IV Q10H [facility] Rx#:[id number] Sodium Chloride 0.9% 1, 1000 1000 000 ml @ 100 mls/hr IV . Q10H [facility] Rx#:[id number] Oral 100 Output: Urine 1700 1350 Other: # Bowel Movements 3 2 Stool Characteristics Soft Soft Black Black Green Green Weight Source Bedscale Bedscale Active Medications: Current Medications Sodium Chloride (Nacl 0.9%) 1,000 mls @ 100 mls/hr IV .Q10H [facility] Stop: 11/22/17 13:14 Last Admin: 09/25/17 06:07 Dose: 100 mls/hr Ciprofloxacin (Cipro 400mg Premix Pb) 400 mg in 200 mls @ 200 mls/hr IV Q24H [facility] Stop: 11/22/17 14:59 Last Admin: 09/24/17 15:35 Dose: 200 mls/hr Pantoprazole Sodium 80 mg/ (Sodium Chloride) 100 mls @ 10 mls/hr IV Q10H [facility] Stop: 11/22/17 17:29 Last Admin: 09/25/17 00:44 Dose: 10 mls/hr Norepinephrine Bitartrate 4 mg (/ Dextrose) 254 mls @ 15.24 mls/hr IV TITR PRN ; Protocol PRN Reason: BP MAINTENANCE (PER PROTOCOL) Stop: 11/23/17 02:23 Last Titration: 09/24/17 18:27 Dose: 0 mcg/min, 0 mls/hr Fluconazole (Diflucan) 100 mg in 50 mls @ 50 mls/hr IV Q24HR [facility] Stop: 11/23/17 13:29 Last Infusion: 09/24/17 15:41 Dose: Infused Insulin Aspart (Novolog Insulin Sliding Scale) 0 units SUBQ ACHS [facility]; Protocol Stop: 11/22/17 20:59 Last Admin: 09/24/17 21:22 Dose: Not Given Metoclopramide HCl (Reglan) 10 mg IVP Q8HR PRN PRN Reason: nausea/vomiting Stop: 11/22/17 13:39 Miscellaneous (Clinical Monitoring) 1 ea MC PRN PRN PRN Reason: RENAL DOSE Stop: 11/22/17 14:54 General: Alert, Oriented x3 Neck: Supple Abdomen: Soft, no Tender, no Hepatomegaly, no Splenomegaly, no Distended, no Rebound, no Mass, no Guarding Skin: no Rash Psych/Mental Status: Mental status NL Assessment/Plan - Problem List Patient Problems: All Active Problems COFFEE GROUND EMESIS WITH TARRY STOOL (Acute) - Assessment Assessment: # Melena # Anemia # NSAID use Upper GI bleed, likely PUD from naproxen use. Plan for EGD on 09/26 in AM for further investigation and possible therapy Plan: - cont ppi drip - EGD tomorrow AM - CBC this afternoon, keep hgb > 8 - clears today, NPO at midnight - avoid NSAIDs going forward
[2017-09-25] MEDS: Fluconazole 100mg/50mL 100 MG/50 ML BOTTLE IV SCH (13:45)
[2017-09-25] MEDS ORDERED: Potassium Chloride 20 mEq ER Tab PO ONE (14:59)
--- NOTE | 2017-09-25 15:10 | General Progress Note ---
Subjective - Review of Systems Service Date: 09/25/17 Subjective: no further vomiting Objective - Results Result Diagrams: 09/25/17 04:30 09/25/17 04:30 Recent Labs: Laboratory Last Values WBC 9.1 Th/cmm (4.8-10.8) 09/25/17 04:30 RBC 2.93 Mil/cmm (3.80-5.20) L 09/25/17 04:30 Hgb 8.1 gm/dL (12-16) L 09/25/17 04:30 Hct 24.1 % (41.0-60) L 09/25/17 04:30 MCV 82.4 fl (81-100) 09/25/17 04:30 MCH 27.6 pg (27.0-31.0) 09/25/17 04:30 MCHC Differential 33.5 pg (28.0-36.0) 09/25/17 04:30 RDW 17.9 % (11.5-20.0) 09/25/17 04:30 Plt Count 176 Th/cmm (150-400) D 09/25/17 04:30 MPV 7.8 fl 09/25/17 04:30 Neutrophils % 69.8 % (40.0-80.0) 09/25/17 04:30 Lymphocytes % 20.1 % (20.0-50.0) 09/25/17 04:30 Monocytes % 5.8 % (2.0-10.0) 09/25/17 04:30 Eosinophils % 3.2 % (0.0-5.0) 09/25/17 04:30 Basophils % 1.1 % (0.0-2.0) 09/25/17 04:30 Eos Smear Source URINE 09/23/17 18:00 Eos Smear Total Cells NONE SEEN (NONE SEEN) 09/23/17 18:00 PT 10.4 SECONDS (9.5-11.5) 09/23/17 11:45 INR 1.00 (0.5-1.4) 09/23/17 11:45 Sodium 141 mEq/L (136-145) 09/25/17 04:30 Potassium 3.4 mEq/L (3.5-5.1) L 09/25/17 04:30 Chloride 114 mEq/L (98-107) H 09/25/17 04:30 Carbon Dioxide 17.9 mEq/L (21.0-31.0) L 09/25/17 04:30 Anion Gap 12.5 (7.0-16.0) 09/25/17 04:30 BUN 106 mg/dL (7-25) H* 09/25/17 04:30 Creatinine 2.1 mg/dL (0.6-1.2) H 09/25/17 04:30 Est GFR ( Amer) TNP 09/25/17 04:30 Est GFR (Non-Af Amer) TNP 09/25/17 04:30 BUN/Creatinine Ratio 50.5 09/25/17 04:30 Glucose 90 mg/dL (70-105) 09/25/17 04:30 POC Glucose 115 MG/DL (70 - 105) H 09/25/17 13:38 Calcium 8.0 mg/dL (8.6-10.3) L 09/25/17 04:30 Phosphorus 6.6 mg/dL (2.5-5.0) H 09/24/17 04:50 Magnesium 2.3 mg/dL (1.9-2.7) 09/24/17 04:50 Total Bilirubin 0.2 mg/dL (0.3-1.0) L 09/24/17 04:50 AST 8 U/L (13-39) L 09/24/17 04:50 ALT 3 U/L (7-52) L 09/24/17 04:50 Alkaline Phosphatase 36 U/L (34-104) 09/24/17 04:50 Creatine Kinase 19 U/L (30-223) L 09/23/17 11:45 Troponin I < 0.01 ng/mL (0.01-0.05) L 09/23/17 11:45 B-Natriuretic Peptide 45.4 pg/mL (5.0-100.0) 09/23/17 11:45 Total Protein 5.8 gm/dL (6.0-8.3) L 09/24/17 04:50 Albumin 3.1 gm/dL (3.7-5.3) L 09/24/17 04:50 Globulin 2.7 gm/dL 09/24/17 04:50 Albumin/Globulin Ratio 1.2 (1.0-1.8) 09/24/17 04:50 Triglycerides 150 mg/dL (<150) 09/23/17 11:45 Cholesterol 135 mg/dL (<200) 09/23/17 11:45 LDL Cholesterol Direct 72 mg/dL (75-193) L 09/23/17 11:45 HDL Cholesterol 33 mg/dL (23-92) 09/23/17 11:45 Amylase 53 U/L (29-103) 09/23/17 11:45 Lipase 46 U/L (11-82) 09/25/17 04:30 Urine Source CLEAN C 09/23/17 12:15 Urine Color YELLOW 09/23/17 12:15 Urine Clarity HAZY (CLEAR) 09/23/17 12:15 Urine pH 6.0 (4.6 - 8.0) 09/23/17 12:15 Ur Specific [place] 1.020 (1.005-1.030) 09/23/17 12:15 Urine Protein 30 mg/dL (NEGATIVE) H 09/23/17 12:15 Urine Glucose (UA) 100 mg/dL (NEGATIVE) H 09/23/17 12:15 Urine Ketones NEGATIVE mg/dL (NEGATIVE) 09/23/17 12:15 Urine Blood SMALL (NEGATIVE) H 09/23/17 12:15 Urine Nitrate NEGATIVE (NEGATIVE) 09/23/17 12:15 Urine Bilirubin NEGATIVE (NEGATIVE) 09/23/17 12:15 Urine Urobilinogen 0.2 E.U./dL (0.2 - 1.0) 09/23/17 12:15 Ur Leukocyte Esterase TRACE (NEGATIVE) H 09/23/17 12:15 Urine RBC 2-5 /hpf (0-5) 09/23/17 12:15 Urine WBC 6-10 /hpf (0-5) H 09/23/17 12:15 Ur Epithelial Cells FEW /lpf (FEW) 09/23/17 12:15 Urine Bacteria 1+ /hpf (NONE SEEN) H 09/23/17 12:15 Coarse Granular Casts 0-2 /lpf (NONE SEEN) H 09/23/17 12:15 Urine Yeast MODERATE /hpf (NONE SEEN) H 09/23/17 12:15 Ur Random Sodium 88 mmol/L 09/23/17 18:00 Urine Creatinine 28.5 mg/dl 09/23/17 18:00 Urine Microalbumin 127.2 09/23/17 18:00 Microalb/Creat Ratio 446.3 09/23/17 18:00 Stool Occult Blood NEGATIVE (NEGATIVE) 09/24/17 04:00 Blood Type A POSITIVE 09/23/17 11:45 Antibody Screen NEGATIVE 09/23/17 11:45 Crossmatch See Detail 09/23/17 11:45 - Physical Exam Vitals and I&O: Vital Signs Temp 97.2 F 09/25/17 08:00 Pulse 81 09/25/17 09:00 Resp 13 09/25/17 09:00 BP 137/56 09/25/17 09:00 Pulse Ox 99 09/25/17 09:00 Intake & Output 09/24/17 09/25/17 09/25/17 18:59 06:59 18:59 Intake Total 7951.696 5828.333 100 Output Total 1700 1350 Balance -376.327 -156.667 100 Weight (lbs) 104.326 kg 99.79 kg Intake: Intake, IV Amount 1172.528 5823.333 100 Fluconazole 100mg/50mL 50 100 mg In 50 ml @ 50 mls/ hr IV Q24HR MEGAN Rx#: [id number] Norepinephrine 4 mg In 173.673 Dextrose 5% 250 ml @ 4 MCG/MIN 15.24 mls/hr IV TITR PRN Rx#:[id number] Pantoprazole 80 mg In 100 93.333 100 Sodium Chloride 0.9% 100 ml @ 10 mls/hr IV Q10H MEGAN Rx#:[id number] Sodium Chloride 0.9% 1, 1000 1000 000 ml @ 100 mls/hr IV . Q10H [facility] Rx#:[id number] Oral 100 Output: Urine 1700 1350 Other: # Bowel Movements 3 2 Stool Characteristics Soft Soft Black Black Green Green Weight Source Bedscale Bedscale Active Medications: Current Medications Ciprofloxacin (Cipro 400mg Premix Pb) 400 mg in 200 mls @ 200 mls/hr IV Q24H MEGAN Stop: 11/22/17 14:59 Last Admin: 09/24/17 15:35 Dose: 200 mls/hr Pantoprazole Sodium 80 mg/ (Sodium Chloride) 100 mls @ 10 mls/hr IV Q10H MEGAN Stop: 11/22/17 17:29 Last Admin: 09/25/17 11:08 Dose: 10 mls/hr Norepinephrine Bitartrate 4 mg (/ Dextrose) 254 mls @ 15.24 mls/hr IV TITR PRN ; Protocol PRN Reason: BP MAINTENANCE (PER PROTOCOL) Stop: 11/23/17 02:23 Last Titration: 09/24/17 18:27 Dose: 0 mcg/min, 0 mls/hr Fluconazole (Diflucan) 100 mg in 50 mls @ 50 mls/hr IV Q24HR [facility] Stop: 11/23/17 13:29 Last Admin: 09/25/17 13:45 Dose: 100 mls/hr Sodium Chloride (Nacl 0.9%) 1,000 mls @ 75 mls/hr IV .[id number] [facility] Stop: 11/24/17 14:59 Insulin Aspart (Novolog Insulin Sliding Scale) 0 units SUBQ ACHS [facility]; Protocol Stop: 11/22/17 20:59 Last Admin: 09/25/17 13:48 Dose: Not Given Metoclopramide HCl (Reglan) 10 mg IVP Q8HR PRN PRN Reason: nausea/vomiting Stop: 11/22/17 13:39 Miscellaneous (Clinical Monitoring) 1 ea MC PRN PRN PRN Reason: RENAL DOSE Stop: 11/22/17 14:54 Potassium Chloride (Klor-Con) 20 meq PO X1 ONE Stop: 09/25/17 15:00 Sodium Bicarbonate (Sodium Bicarbonate) 650 mg PO BID [facility]; Protocol Stop: 11/24/17 16:59 General: Alert, Oriented x3 HEENT: Atraumatic Neck: Supple, +2 carotid pulse wo bruit Cardiovascular: Regular rate, Normal S1, Normal S2 Lungs: Clear to auscultation Abdomen: Bowel sounds, Soft, no Tender, no Hepatomegaly, no Splenomegaly, no Distended, no Rebound, no Mass, no Guarding Extremities: no Edema Neurological: Sensation intact Skin: no Rash Psych/Mental Status: Mental status NL Assessment/Plan - Problem List Patient Problems: All Active Problems COFFEE GROUND EMESIS WITH TARRY STOOL (Acute) - Assessment Assessment: SIVA GI Bleed Ess Htn Dyslipidemia GERD Morbid Obesity - Plan Plan: Lab - Result Diagrams 09/25/17 04:30 09/25/17 04:30 Current Medications Ciprofloxacin (Cipro 400mg Premix Pb) 400 mg in 200 mls @ 200 mls/hr IV Q24H MEGAN Stop: 11/22/17 14:59 Last Admin: 09/24/17 15:35 Dose: 200 mls/hr Pantoprazole Sodium 80 mg/ (Sodium Chloride) 100 mls @ 10 mls/hr IV Q10H MEGAN Stop: 11/22/17 17:29 Last Admin: 09/25/17 11:08 Dose: 10 mls/hr Norepinephrine Bitartrate 4 mg (/ Dextrose) 254 mls @ 15.24 mls/hr IV TITR PRN ; Protocol PRN Reason: BP MAINTENANCE (PER PROTOCOL) Stop: 11/23/17 02:23 Last Titration: 09/24/17 18:27 Dose: 0 mcg/min, 0 mls/hr Fluconazole (Diflucan) 100 mg in 50 mls @ 50 mls/hr IV Q24HR MEGAN Stop: 11/23/17 13:29 Last Admin: 09/25/17 13:45 Dose: 100 mls/hr Sodium Chloride (Nacl 0.9%) 1,000 mls @ 75 mls/hr IV .[id number] [facility] Stop: 11/24/17 14:59 Insulin Aspart (Novolog Insulin Sliding Scale) 0 units SUBQ ACHS [facility]; Protocol Stop: 11/22/17 20:59 Last Admin: 09/25/17 13:48 Dose: Not Given Metoclopramide HCl (Reglan) 10 mg IVP Q8HR PRN PRN Reason: nausea/vomiting Stop: 11/22/17 13:39 Miscellaneous (Clinical Monitoring) 1 ea MC PRN PRN PRN Reason: RENAL DOSE Stop: 11/22/17 14:54 Potassium Chloride (Klor-Con) 20 meq PO X1 ONE Stop: 09/25/17 15:00 Sodium Bicarbonate (Sodium Bicarbonate) 650 mg PO BID MEGAN; Protocol Stop: 11/24/17 16:59 Lab - Result Diagrams 09/25/17 04:30 09/25/17 04:30 Kidney fnc continues to improve Hgb/Hct slightly down to 8.1/24.1 no obvious bleed f/u electrolytes, cbc replace K possible EGD in am Nutritional Asmnt/Malnutr-PDOC - Dietary Evaluation Malnutrition Findings (Please click <Entered> for more info): Nutritional Asmnt/Malnutrition Start: 09/24/17 10: 10 Text: Status: Complete Freq: Protocol: Document 09/24/17 10:41 HAIDER (Rec: 09/24/17 11:14 HAIDER IVERSON- [email or web address]) Nutritional Asmnt/Malnutrition Patient General Information Nutritional Screening Consult Diagnosis Hypotension, GI Bleed, Acute Renal Insufficiency Pertinent Medical Hx/Surgical Hx OSTEOARTHRITIS, DJD, HYPERLIPIDEMIA, VERTIGO, MORBID OBESITY, DEBILITY, RECENT FALL, LEUKOCYTOSIS, UTI , ATAXIA, COPD, GENERALIZED WEAKNESS, ALOC Subjective Information Consult for Diabetic, loss of appetite, lost 20lbs in 3 months. Patient was admitted from an extended Care facility . Was admitted for coffee ground emesis and black tarry stool. Per nursing notes, patient has lost ~20lbs over the past 3 months and has had a poor appetite >1 week. Patient asleep in bed at time of visit. Current Diet Order/ Nutrition Support clear liquid Patient / S.O Not Indicated Pertinent Medications novolog, Reglan Pertinent Labs (09/24) BUN 139, Cr 3.2, Ca 7.7 , Phosphorus 6.6, Albumin 3.1 Nutritional Hx/Data Height 1.6 m Height (Calculated Centimeters) 160.0 Current Weight (lbs) 104.326 kg Weight (Calculated Kilograms) 104.3 Weight (Calculated Grams) 334982.2 [place] Body Weight 115 % [place] Body Weight 200 Body Mass Index (BMI) 40.7 Recent Weight Change Yes Weight Status Morbidly Obese GI Symptoms GI Symptoms Vomitting Last BM 09/24 Difficult in: None Food Allergies No Cultural/Ethnic/Voodoo Belief None indicated Usual diet at home Unknown Skin Integrity/Comment: Dinh 15, Intact Estimated Nutritional Goals BEE in Kcals: Adj wt of IBW Calories/Kcals/Kg 25-30 kcal/kg using ADj BW 65. 3kg Kcals Calculated ~7156-6686 kcal/day Protein: Adj wt of IBW Protein g/k-1.2 gm/kg using Adj BW Protein Calculated 65-80 gm/day Fluid: ml ~7506-7846 ml/day (1 ml/kcal) Nutritional Problem 2. Problem Problem Inadequate oral intake related to Etiology clear liquid diet due to GI bleed aeb Signs/Symptoms: current diet/intake meeting < 25% of estimated nutrient needs. 1. Problem Problem Altered nutrition related lab values related to Etiology electrolyte imbalance aeb Signs/Symptoms: Ca 7.7, Phosphorus 6.6 Intervention/Recommendation Comments 1. When medically appropriate, progress diet to Renal diet ( low in phosphorus) as tolerated by patient. 2. MD to consider phosphorus binder with meals. 3. Will provide Renal diet education when appropriate. Expected Outcomes/Goals Expected Outcomes/Goals Oral intake to meet >75% of nutrient needs, weight stable or trend toward ideal body weight, nutrition related labs normalize F/U in 3-5 days as MR ( )
[2017-09-25] MEDS: Ciprofloxacin 400mg Premix PB 400 MG/200 ML BAG IV SCH (15:50)
[2017-09-26] MEDS: Sodium Chloride 0.9% 1,000 ML IV SCH (03:50)
[2017-09-26 04:29] LABS: RED CELL DISTRIBUTION WIDTH 17.6 % (11.5-20.0); WHITE BLOOD COUNT 8.5 Th/cmm (4.8-10.8)
[2017-09-26 04:33] LABS: HEMATOCRIT 22.7 % (41.0-60); MEAN CELL VOLUME 82.5 fl (81-100); MEAN CORPUSCULAR HEMOGLOBIN 28.1 pg (27.0-31.0); MEAN CORPUSCULAR HGB CONC 34.1 pg (28.0-36.0); MEAN PLATELET VOLUME 7.6 fl; PLATELET COUNT 186 Th/cmm (150-400); RED BLOOD COUNT 2.75 Mil/cmm (3.80-5.20)
[2017-09-26 04:40] LABS: INR 1.06 (0.5-1.4)
[2017-09-26 04:44] LABS: HEMOGLOBIN 7.7 gm/dL (12-16)
[2017-09-26 05:04] LABS: ANION GAP 7.3 (7.0-16.0); BUN - UREA NITROGEN 66 mg/dL (7-25); CALCIUM SERUM 8.4 mg/dL (8.6-10.3); CARBON DIOXIDE 22.3 mEq/L (21.0-31.0); CHLORIDE 116 mEq/L (98-107); CREATININE - SERUM 1.3 mg/dL (0.6-1.2); GLUCOSE 97 mg/dL (70-105); MAGNESIUM 1.7 mg/dL (1.9-2.7); POTASSIUM SERUM 3.6 mEq/L (3.5-5.1); SODIUM SERUM 142 mEq/L (136-145)
[2017-09-26 05:15] LABS: BAND NEUTROPHILE 2 % (0-10); EOSINOPHIL 1 % (0-5); LYMPHOCYTE 16 % (20-50); MONOCYTE 1 % (2-10); NEUTROPHILS 80 % (40-80)
[2017-09-26 05:16] LABS: PLATELET ESTIMATE ADEQUATE (NORMAL)
[2017-09-26] MEDS: INSULIN ASPART SLIDING SCALE 100 UNITS/ML UNIT SUBQ SCH ×4 (06:37→20:22)
[2017-09-26] MEDS ORDERED: Propofol 10 mg/mL 20mL Vial **SURGERY USE ONLY IV ONE (08:19)
[2017-09-26] MEDS ORDERED: Mag Sulfate 2gm/50mL Premix 2 GM/50 ML BAG IV ONE (09:00)
--- NOTE | 2017-09-26 09:56 | Operative Report ---
DATE OF SURGERY: 09/26/2017 INPATIENT EEG REPORT PROCEDURE PERFORMED: EGD with polypectomy and EGD with biopsy. PREOPERATIVE DIAGNOSES: Melena, gastrointestinal bleeding, coffee-ground emesis. POSTOPERATIVE DIAGNOSES: Gastric ulcer, gastritis and gastric polyp and hiatal hernia. INDICATIONS: The patient is a 77-year-old female with history of obesity who came into the hospital after several episodes of coffee-ground emesis followed by melena. The patient has been under a Protonix drip and is now here for EGD. CONSENT: Informed consent was obtained from the patient. The risks and benefits of the procedure were discussed include but not limited to infection, bleeding, perforation, need for surgery, cardiopulmonary complications, missed pathology and . The patient indicated her understanding of these risks, which before the procedure and signed a consent form. ANESTHESIA: The procedure was performed in the main operating room under the care of the general anesthesiologist. PROCEDURE IN DETAIL: The patient was hooked up to the appropriate monitoring devices including blood pressure, pulse and pulse oximetry. An IV was in place. Oxygen was delivered via nasal cannula throughout the procedure. IV sedation medication was given in divided doses under the direction of the physician. The patient was in the left lateral decubitus position. A mouthpiece was inserted and secured. Next, the gastroscope was introduced into the mouth and guided under direct visualization into the esophagus, stomach, and duodenum. The scope was slowly and carefully withdrawn, being sure to examine the entire mucosa in a careful and systematic fashion. Retroflexion was performed in the stomach prior to scope straightening and withdrawal from the body. There was no obvious complication at the end of the procedure. FINDINGS: Esophagus: The diaphragmatic pinch was located at 36 cm from the incisors and the endogastric folds were at 30 cm from the incisors indicating a 6 cm hiatal hernia. The hernia sac itself appeared normal without any ulceration or mass within the sac. There was no other esophageal lesion. Stomach portion: In the antrum, there were several clean based ulcers, one of which was larger in size. Biopsies were taken from the ulcer edge and this was likely the source of the patient's bleeding. Additionally, there was some gastritis in the antrum and biopsies were taken from the gastritis section separately. There were several gastric polyps that were found, but one of these was large and had a pedunculated stalk. This may be an adenoma. Thus, the stalk was clipped with an endoclip causing the polyp to appropriately become very dusky. Next, a snare cautery device was used to totally excise this polyp and the polyp was collected. One additional polyp that had an adenomatous appearance was also removed with snare cautery. There was some oozing from the polypectomy site after retraction and thus, 3 Hemoclips were used to close that defect with hemostasis achieved. Duodenum: The duodenal bulb and second portion appeared endoscopically normal. IMPRESSION: 1. A 6 cm hiatal hernia. 2. Antral ulcers. 3. Gastritis. 4. Pedunculated gastric polyp, status post excision. RECOMMENDATIONS: 1. We will continue the Protonix drip for another 24 hours and this can be then changed to b.i.d. dosing. 2. We will place the patient on clear liquid diet today and this can be advanced as tolerated. 3. Continue to trend the hemoglobin and keep this above 7. 4. The patient likely will benefit from iron therapy to help replenish her stores. 5. Follow up the gastric polyp and gastric antrum, biopsies, treat any H. pylori if found. Thank you for allowing me to participate in her care. Please call me with any further questions. JOB# [id number]
[2017-09-26] MEDS: Pantoprazole 80 MG in Sodium Chloride 0.9% 100 ML IV SCH ×2 (10:20→15:39)
[2017-09-26] MEDS: Fluconazole 100mg/50mL 100 MG/50 ML BOTTLE IV SCH (13:30)
--- NOTE | 2017-09-26 14:25 | General Progress Note ---
Subjective - Review of Systems Service Date: 09/26/17 Subjective: no further vomiting, had EGD Objective - Results Result Diagrams: 09/26/17 04:15 09/26/17 04:15 Recent Labs: Laboratory Last Values WBC 8.5 Th/cmm (4.8-10.8) 09/26/17 04:15 RBC 2.75 Mil/cmm (3.80-5.20) L 09/26/17 04:15 Hgb 7.7 gm/dL (12-16) L* 09/26/17 04:15 Hct 22.7 % (41.0-60) L 09/26/17 04:15 MCV 82.5 fl (81-100) 09/26/17 04:15 MCH 28.1 pg (27.0-31.0) 09/26/17 04:15 MCHC Differential 34.1 pg (28.0-36.0) 09/26/17 04:15 RDW 17.6 % (11.5-20.0) 09/26/17 04:15 Plt Count 186 Th/cmm (150-400) 09/26/17 04:15 MPV 7.6 fl 09/26/17 04:15 Add Manual Diff YES 09/26/17 04:15 Neutrophils % 69.8 % (40.0-80.0) 09/25/17 04:30 Band Neutrophils % 2 % (0-10) 09/26/17 04:15 Lymphocytes % 20.1 % (20.0-50.0) 09/25/17 04:30 Monocytes % 5.8 % (2.0-10.0) 09/25/17 04:30 Eosinophils % 3.2 % (0.0-5.0) 09/25/17 04:30 Basophils % 1.1 % (0.0-2.0) 09/25/17 04:30 Neutrophils (Manual) 80 % (40-80) 09/26/17 04:15 Lymphocytes 16 % (20-50) L 09/26/17 04:15 Monocytes 1 % (2-10) L 09/26/17 04:15 Eosinophils 1 % (0-5) 09/26/17 04:15 Platelet Estimate ADEQUATE (NORMAL) 09/26/17 04:15 Eos Smear Source URINE 09/23/17 18:00 Eos Smear Total Cells NONE SEEN (NONE SEEN) 09/23/17 18:00 PT 11.0 SECONDS (9.5-11.5) 09/26/17 04:15 INR 1.06 (0.5-1.4) 09/26/17 04:15 Sodium 142 mEq/L (136-145) 09/26/17 04:15 Potassium 3.6 mEq/L (3.5-5.1) 09/26/17 04:15 Chloride 116 mEq/L (98-107) H 09/26/17 04:15 Carbon Dioxide 22.3 mEq/L (21.0-31.0) 09/26/17 04:15 Anion Gap 7.3 (7.0-16.0) 09/26/17 04:15 BUN 66 mg/dL (7-25) H 09/26/17 04:15 Creatinine 1.3 mg/dL (0.6-1.2) H 09/26/17 04:15 Est GFR ( Amer) TNP 09/26/17 04:15 Est GFR (Non-Af Amer) TNP 09/26/17 04:15 BUN/Creatinine Ratio 50.8 09/26/17 04:15 Glucose 97 mg/dL (70-105) 09/26/17 04:15 POC Glucose 114 MG/DL (70 - 105) H 09/26/17 11:41 Calcium 8.4 mg/dL (8.6-10.3) L 09/26/17 04:15 Phosphorus 6.6 mg/dL (2.5-5.0) H 09/24/17 04:50 Magnesium 1.7 mg/dL (1.9-2.7) L 09/26/17 04:15 Total Bilirubin 0.2 mg/dL (0.3-1.0) L 09/24/17 04:50 AST 8 U/L (13-39) L 09/24/17 04:50 ALT 3 U/L (7-52) L 09/24/17 04:50 Alkaline Phosphatase 36 U/L (34-104) 09/24/17 04:50 Creatine Kinase 19 U/L (30-223) L 09/23/17 11:45 Troponin I < 0.01 ng/mL (0.01-0.05) L 09/23/17 11:45 B-Natriuretic Peptide 45.4 pg/mL (5.0-100.0) 09/23/17 11:45 Total Protein 5.8 gm/dL (6.0-8.3) L 09/24/17 04:50 Albumin 3.1 gm/dL (3.7-5.3) L 09/24/17 04:50 Globulin 2.7 gm/dL 09/24/17 04:50 Albumin/Globulin Ratio 1.2 (1.0-1.8) 09/24/17 04:50 Triglycerides 150 mg/dL (<150) 09/23/17 11:45 Cholesterol 135 mg/dL (<200) 09/23/17 11:45 LDL Cholesterol Direct 72 mg/dL (75-193) L 09/23/17 11:45 HDL Cholesterol 33 mg/dL (23-92) 09/23/17 11:45 Amylase 53 U/L (29-103) 09/23/17 11:45 Lipase 46 U/L (11-82) 09/25/17 04:30 Urine Source CLEAN C 09/23/17 12:15 Urine Color YELLOW 09/23/17 12:15 Urine Clarity HAZY (CLEAR) 09/23/17 12:15 Urine pH 6.0 (4.6 - 8.0) 09/23/17 12:15 Ur Specific [place] 1.020 (1.005-1.030) 09/23/17 12:15 Urine Protein 30 mg/dL (NEGATIVE) H 09/23/17 12:15 Urine Glucose (UA) 100 mg/dL (NEGATIVE) H 09/23/17 12:15 Urine Ketones NEGATIVE mg/dL (NEGATIVE) 09/23/17 12:15 Urine Blood SMALL (NEGATIVE) H 09/23/17 12:15 Urine Nitrate NEGATIVE (NEGATIVE) 09/23/17 12:15 Urine Bilirubin NEGATIVE (NEGATIVE) 09/23/17 12:15 Urine Urobilinogen 0.2 E.U./dL (0.2 - 1.0) 09/23/17 12:15 Ur Leukocyte Esterase TRACE (NEGATIVE) H 09/23/17 12:15 Urine RBC 2-5 /hpf (0-5) 09/23/17 12:15 Urine WBC 6-10 /hpf (0-5) H 09/23/17 12:15 Ur Epithelial Cells FEW /lpf (FEW) 09/23/17 12:15 Urine Bacteria 1+ /hpf (NONE SEEN) H 09/23/17 12:15 Coarse Granular Casts 0-2 /lpf (NONE SEEN) H 09/23/17 12:15 Urine Yeast MODERATE /hpf (NONE SEEN) H 09/23/17 12:15 Ur Random Sodium 88 mmol/L 09/23/17 18:00 Urine Creatinine 28.5 mg/dl 09/23/17 18:00 Urine Microalbumin 127.2 09/23/17 18:00 Microalb/Creat Ratio 446.3 09/23/17 18:00 Stool Occult Blood NEGATIVE (NEGATIVE) 09/24/17 04:00 Blood Type A POSITIVE 09/23/17 11:45 Antibody Screen NEGATIVE 09/23/17 11:45 Crossmatch See Detail 09/23/17 11:45 - Physical Exam Vitals and I&O: Vital Signs Temp 98 F 09/26/17 14:00 Pulse 102 09/26/17 14:00 Resp 13 09/26/17 14:00 BP 146/58 09/26/17 14:00 Pulse Ox 96 09/26/17 14:00 Intake & Output 09/25/17 09/26/17 09/26/17 18:59 06:59 18:59 Intake Total 1550 1611.583 Output Total 1900 1800 Balance -350 -188.417 Weight (lbs) 97.522 kg 97.522 kg Intake: Intake, IV Amount 350 1111.583 Ciprofloxacin 400mg 200 Premix PB 400 mg In 200 ml @ 200 mls/hr IV Q24H [facility] Rx#:[id number] Fluconazole 100mg/50mL 50 100 mg In 50 ml @ 50 mls/ hr IV Q24HR [facility] Rx#: [id number] Pantoprazole 80 mg In 100 197.833 Sodium Chloride 0.9% 100 ml @ 10 mls/hr IV Q10H [facility] Rx#:[id number] Sodium Chloride 0.9% 1, 913.75 000 ml @ 75 mls/hr IV . [id number] [facility] Rx#:[id number] Oral 950 500 Other 250 Output: Urine 1900 1800 Other: # Bowel Movements 1 Stool Characteristics Soft Soft Formed Liquid Brown Black Black Weight Source Bedscale Bedscale Active Medications: Current Medications Docusate Sodium (Colace) 250 mg PO DAILY [facility] Stop: 11/24/17 15:14 Last Admin: 09/26/17 09:15 Dose: Not Given Ciprofloxacin (Cipro 400mg Premix Pb) 400 mg in 200 mls @ 200 mls/hr IV Q24H [facility] Stop: 11/22/17 14:59 Last Infusion: 09/25/17 17:56 Dose: Infused Pantoprazole Sodium 80 mg/ (Sodium Chloride) 100 mls @ 10 mls/hr IV Q10H [facility] Stop: 11/22/17 17:29 Last Admin: 09/26/17 10:20 Dose: 10 mls/hr Norepinephrine Bitartrate 4 mg (/ Dextrose) 254 mls @ 15.24 mls/hr IV TITR PRN ; Protocol PRN Reason: BP MAINTENANCE (PER PROTOCOL) Stop: 11/23/17 02:23 Last Titration: 09/24/17 18:27 Dose: 0 mcg/min, 0 mls/hr Fluconazole (Diflucan) 100 mg in 50 mls @ 50 mls/hr IV Q24HR [facility] Stop: 11/23/17 13:29 Last Admin: 09/26/17 13:30 Dose: 100 mls/hr Sodium Chloride (Nacl 0.9%) 1,000 mls @ 75 mls/hr IV .[id number] [facility] Stop: 11/24/17 14:59 Last Admin: 09/26/17 03:50 Dose: 75 mls/hr Insulin Aspart (Novolog Insulin Sliding Scale) 0 units SUBQ ACHS [facility]; Protocol Stop: 11/22/17 20:59 Last Admin: 09/26/17 11:41 Dose: Not Given Metoclopramide HCl (Reglan) 10 mg IVP Q8HR PRN PRN Reason: nausea/vomiting Stop: 11/22/17 13:39 Miscellaneous (Clinical Monitoring) 1 ea MC PRN PRN PRN Reason: RENAL DOSE Stop: 11/22/17 14:54 Sodium Bicarbonate (Sodium Bicarbonate) 650 mg PO BID [facility]; Protocol Stop: 11/24/17 16:59 Last Admin: 09/26/17 09:30 Dose: 650 mg General: Alert, Oriented x3 HEENT: Atraumatic Neck: Supple, +2 carotid pulse wo bruit Cardiovascular: Regular rate, Normal S1, Normal S2 Lungs: Clear to auscultation Abdomen: Bowel sounds, Soft, no Tender, no Hepatomegaly, no Splenomegaly, no Distended, no Rebound, no Mass, no Guarding Extremities: no Edema Neurological: Sensation intact Skin: no Rash Psych/Mental Status: Mental status NL - Procedures Procedures: Procedures Procedure Code Date EXCISION OF STOMACH, ENDO [id number] 09/23/17 EXCISION OF STOMACH, ENDO, DIAGN [id number] 09/23/17 TRANSFUSE NONAUT RED BLOOD CELLS IN PERIPH VEIN, PERC 88327I1 09/23/17 Assessment/Plan - Problem List Patient Problems: All Active Problems COFFEE GROUND EMESIS WITH TARRY STOOL (Acute) - Assessment Assessment: SIVA GI Bleed Ess Htn Dyslipidemia GERD Morbid Obesity - Plan Plan: Lab - Result Diagrams 09/25/17 04:30 09/25/17 04:30 Current Medications Ciprofloxacin (Cipro 400mg Premix Pb) 400 mg in 200 mls @ 200 mls/hr IV Q24H [facility] Stop: 11/22/17 14:59 Last Admin: 09/24/17 15:35 Dose: 200 mls/hr Pantoprazole Sodium 80 mg/ (Sodium Chloride) 100 mls @ 10 mls/hr IV Q10H [facility] Stop: 11/22/17 17:29 Last Admin: 09/25/17 11:08 Dose: 10 mls/hr Norepinephrine Bitartrate 4 mg (/ Dextrose) 254 mls @ 15.24 mls/hr IV TITR PRN ; Protocol PRN Reason: BP MAINTENANCE (PER PROTOCOL) Stop: 11/23/17 02:23 Last Titration: 09/24/17 18:27 Dose: 0 mcg/min, 0 mls/hr Fluconazole (Diflucan) 100 mg in 50 mls @ 50 mls/hr IV Q24HR [facility] Stop: 11/23/17 13:29 Last Admin: 09/25/17 13:45 Dose: 100 mls/hr Sodium Chloride (Nacl 0.9%) 1,000 mls @ 75 mls/hr IV .[id number] [facility] Stop: 11/24/17 14:59 Insulin Aspart (Novolog Insulin Sliding Scale) 0 units SUBQ ACHS [facility]; Protocol Stop: 11/22/17 20:59 Last Admin: 09/25/17 13:48 Dose: Not Given Metoclopramide HCl (Reglan) 10 mg IVP Q8HR PRN PRN Reason: nausea/vomiting Stop: 11/22/17 13:39 Miscellaneous (Clinical Monitoring) 1 ea MC PRN PRN PRN Reason: RENAL DOSE Stop: 11/22/17 14:54 Potassium Chloride (Klor-Con) 20 meq PO X1 ONE Stop: 09/25/17 15:00 Sodium Bicarbonate (Sodium Bicarbonate) 650 mg PO BID [facility]; Protocol Stop: 11/24/17 16:59 Lab - Result Diagrams 09/26/17 04:15 09/26/17 04:15 Kidney fnc continues to improve Hgb/Hct down to 7.7/22.7, Transfuse 1 U no obvious bleed f/u electrolytes, cbc replace K EGD Gastric Ulcer, Gastritis, Polyp Nutritional Asmnt/Malnutr-PDOC - Dietary Evaluation Malnutrition Findings (Please click <Entered> for more info): Nutritional Asmnt/Malnutrition Start: 09/24/17 10: 10 Text: Status: Complete Freq: Protocol: Document 09/24/17 10:41 [email or web address] (Rec: 09/24/17 11:14 [email or web address] IVERSON- [email or web address]) Nutritional Asmnt/Malnutrition Patient General Information Nutritional Screening Consult Diagnosis Hypotension, GI Bleed, Acute Renal Insufficiency Pertinent Medical Hx/Surgical Hx OSTEOARTHRITIS, DJD, HYPERLIPIDEMIA, VERTIGO, MORBID OBESITY, DEBILITY, RECENT FALL, LEUKOCYTOSIS, UTI , ATAXIA, COPD, GENERALIZED WEAKNESS, ALOC Subjective Information Consult for Diabetic, loss of appetite, lost 20lbs in 3 months. Patient was admitted from an extended Care facility . Was admitted for coffee ground emesis and black tarry stool. Per nursing notes, patient has lost ~20lbs over the past 3 months and has had a poor appetite >1 week. Patient asleep in bed at time of visit. Current Diet Order/ Nutrition Support clear liquid Patient / S.O Not Indicated Pertinent Medications novolog, Reglan Pertinent Labs (09/24) BUN 139, Cr 3.2, Ca 7.7 , Phosphorus 6.6, Albumin 3.1 Nutritional Hx/Data Height 1.6 m Height (Calculated Centimeters) 160.0 Current Weight (lbs) 104.326 kg Weight (Calculated Kilograms) 104.3 Weight (Calculated Grams) 594537.2 [place] Body Weight 115 % [place] Body Weight 200 Body Mass Index (BMI) 40.7 Recent Weight Change Yes Weight Status Morbidly Obese GI Symptoms GI Symptoms Vomitting Last BM 09/24 Difficult in: None Food Allergies No Cultural/Ethnic/Jainism Belief None indicated Usual diet at home Unknown Skin Integrity/Comment: Dinh 15, Intact Estimated Nutritional Goals BEE in Kcals: Adj wt of IBW Calories/Kcals/Kg 25-30 kcal/kg using ADj BW 65. 3kg Kcals Calculated ~7193-6750 kcal/day Protein: Adj wt of IBW Protein g/k-1.2 gm/kg using Adj BW Protein Calculated 65-80 gm/day Fluid: ml ~2357-0860 ml/day (1 ml/kcal) Nutritional Problem 2. Problem Problem Inadequate oral intake related to Etiology clear liquid diet due to GI bleed aeb Signs/Symptoms: current diet/intake meeting < 25% of estimated nutrient needs. 1. Problem Problem Altered nutrition related lab values related to Etiology electrolyte imbalance aeb Signs/Symptoms: Ca 7.7, Phosphorus 6.6 Intervention/Recommendation Comments 1. When medically appropriate, progress diet to Renal diet ( low in phosphorus) as tolerated by patient. 2. MD to consider phosphorus binder with meals. 3. Will provide Renal diet education when appropriate. Expected Outcomes/Goals Expected Outcomes/Goals Oral intake to meet >75% of nutrient needs, weight stable or trend toward ideal body weight, nutrition related labs normalize F/U in 3-5 days as MR (09/27- )
[2017-09-26] MEDS: Ciprofloxacin 400mg Premix PB 400 MG/200 ML BAG IV SCH (14:44)
[2017-09-26 16:20] LABS: % BASOPHILS 0.6 % (0.0-2.0); % EOSINOPHILS 2.1 % (0.0-5.0); % LYMPHOCYTES 12.5 % (20.0-50.0); % MONOCYTES 5.1 % (2.0-10.0); % NEUTROPHILS 79.7 % (40.0-80.0); BASOPHILE ABSOLUTE 0.1 Th/cumm (0-0.2); EOSINOPHILE ABSOLUTE 0.2 Th/cmm (0.1-0.4); HEMATOCRIT 26.2 % (41.0-60); HEMOGLOBIN 8.8 gm/dL (12-16); LYMPHOCYTE ABSOLUTE 1.2 Th/cmm (1.5-3.0); MEAN CELL VOLUME 84.2 fl (81-100); MEAN CORPUSCULAR HEMOGLOBIN 28.3 pg (27.0-31.0); MEAN CORPUSCULAR HGB CONC 33.7 pg (28.0-36.0); MEAN PLATELET VOLUME 7.4 fl; MONOCYTE ABSOLUTE 0.5 Th/cmm (0.3-1.0); NEUTROPHILE ABSOLUTE 7.9 Th/cmm (1.8-8.0); PLATELET COUNT 186 Th/cmm (150-400); RED BLOOD COUNT 3.11 Mil/cmm (3.80-5.20); WHITE BLOOD COUNT 9.9 Th/cmm (4.8-10.8)
[2017-09-27] MEDS: Sodium Chloride 0.9% 1,000 ML IV SCH ×2 (01:30→08:15)
[2017-09-27 04:16] LABS: % BASOPHILS 0.6 % (0.0-2.0); % EOSINOPHILS 3.5 % (0.0-5.0); % LYMPHOCYTES 16.3 % (20.0-50.0); % MONOCYTES 7.5 % (2.0-10.0); % NEUTROPHILS 72.1 % (40.0-80.0); BASOPHILE ABSOLUTE 0.1 Th/cumm (0-0.2); EOSINOPHILE ABSOLUTE 0.4 Th/cmm (0.1-0.4); HEMATOCRIT 25.5 % (41.0-60); HEMOGLOBIN 8.7 gm/dL (12-16); LYMPHOCYTE ABSOLUTE 1.7 Th/cmm (1.5-3.0); MEAN CELL VOLUME 85.4 fl (81-100); MEAN CORPUSCULAR HGB CONC 33.9 pg (28.0-36.0); MEAN PLATELET VOLUME 7.2 fl; MONOCYTE ABSOLUTE 0.8 Th/cmm (0.3-1.0); NEUTROPHILE ABSOLUTE 7.5 Th/cmm (1.8-8.0); PLATELET COUNT 194 Th/cmm (150-400); RED BLOOD COUNT 2.99 Mil/cmm (3.80-5.20); RED CELL DISTRIBUTION WIDTH 16.6 % (11.5-20.0); WHITE BLOOD COUNT 10.5 Th/cmm (4.8-10.8)
[2017-09-27 04:38] LABS: ANION GAP 8.3 (7.0-16.0); BUN - UREA NITROGEN 32 mg/dL (7-25); CALCIUM SERUM 8.3 mg/dL (8.6-10.3); CHLORIDE 115 mEq/L (98-107); CREATININE - SERUM 0.8 mg/dL (0.6-1.2); GLUCOSE 98 mg/dL (70-105); MAGNESIUM 1.6 mg/dL (1.9-2.7); POTASSIUM SERUM 3.3 mEq/L (3.5-5.1); SODIUM SERUM 142 mEq/L (136-145)
[2017-09-27] MEDS: Pantoprazole 80 MG in Sodium Chloride 0.9% 100 ML IV SCH (05:09)
[2017-09-27] MEDS: INSULIN ASPART SLIDING SCALE 100 UNITS/ML UNIT SUBQ SCH ×4 (06:56→21:12)
[2017-09-27] MEDS ORDERED: Potassium Chloride 20 mEq ER Tab PO ONE ×2 (08:28→09:34)
--- NOTE | 2017-09-27 08:28 | GI Progress Note ---
Subjective - Review of Systems Service Date: 09/27/17 Subjective: Hgb stable, passing some black stool still. Likely old blood. Objective - Results Result Diagrams: 09/27/17 04:05 09/27/17 04:05 Recent Labs: Laboratory Last Values WBC 10.5 Th/cmm (4.8-10.8) 09/27/17 04:05 RBC 2.99 Mil/cmm (3.80-5.20) L 09/27/17 04:05 Hgb 8.7 gm/dL (12-16) L 09/27/17 04:05 Hct 25.5 % (41.0-60) L 09/27/17 04:05 MCV 85.4 fl (81-100) 09/27/17 04:05 MCH 29.0 pg (27.0-31.0) 09/27/17 04:05 MCHC Differential 33.9 pg (28.0-36.0) 09/27/17 04:05 RDW 16.6 % (11.5-20.0) 09/27/17 04:05 Plt Count 194 Th/cmm (150-400) 09/27/17 04:05 MPV 7.2 fl 09/27/17 04:05 Add Manual Diff YES 09/26/17 04:15 Neutrophils % 72.1 % (40.0-80.0) 09/27/17 04:05 Band Neutrophils % 2 % (0-10) 09/26/17 04:15 Lymphocytes % 16.3 % (20.0-50.0) L 09/27/17 04:05 Monocytes % 7.5 % (2.0-10.0) 09/27/17 04:05 Eosinophils % 3.5 % (0.0-5.0) 09/27/17 04:05 Basophils % 0.6 % (0.0-2.0) 09/27/17 04:05 Neutrophils (Manual) 80 % (40-80) 09/26/17 04:15 Lymphocytes 16 % (20-50) L 09/26/17 04:15 Monocytes 1 % (2-10) L 09/26/17 04:15 Eosinophils 1 % (0-5) 09/26/17 04:15 Platelet Estimate ADEQUATE (NORMAL) 09/26/17 04:15 Eos Smear Source URINE 09/23/17 18:00 Eos Smear Total Cells NONE SEEN (NONE SEEN) 09/23/17 18:00 PT 11.0 SECONDS (9.5-11.5) 09/26/17 04:15 INR 1.06 (0.5-1.4) 09/26/17 04:15 Sodium 142 mEq/L (136-145) 09/27/17 04:05 Potassium 3.3 mEq/L (3.5-5.1) L 09/27/17 04:05 Chloride 115 mEq/L (98-107) H 09/27/17 04:05 Carbon Dioxide 22.0 mEq/L (21.0-31.0) 09/27/17 04:05 Anion Gap 8.3 (7.0-16.0) 09/27/17 04:05 BUN 32 mg/dL (7-25) H 09/27/17 04:05 Creatinine 0.8 mg/dL (0.6-1.2) 09/27/17 04:05 Est GFR ( Amer) TNP 09/27/17 04:05 Est GFR (Non-Af Amer) TNP 09/27/17 04:05 BUN/Creatinine Ratio 40.0 09/27/17 04:05 Glucose 98 mg/dL (70-105) 09/27/17 04:05 POC Glucose 100 MG/DL (70 - 105) 09/27/17 06:09 Calcium 8.3 mg/dL (8.6-10.3) L 09/27/17 04:05 Phosphorus 6.6 mg/dL (2.5-5.0) H 09/24/17 04:50 Magnesium 1.6 mg/dL (1.9-2.7) L 09/27/17 04:05 Total Bilirubin 0.2 mg/dL (0.3-1.0) L 09/24/17 04:50 AST 8 U/L (13-39) L 09/24/17 04:50 ALT 3 U/L (7-52) L 09/24/17 04:50 Alkaline Phosphatase 36 U/L (34-104) 09/24/17 04:50 Creatine Kinase 19 U/L (30-223) L 09/23/17 11:45 Troponin I < 0.01 ng/mL (0.01-0.05) L 09/23/17 11:45 B-Natriuretic Peptide 45.4 pg/mL (5.0-100.0) 09/23/17 11:45 Total Protein 5.8 gm/dL (6.0-8.3) L 09/24/17 04:50 Albumin 3.1 gm/dL (3.7-5.3) L 09/24/17 04:50 Globulin 2.7 gm/dL 09/24/17 04:50 Albumin/Globulin Ratio 1.2 (1.0-1.8) 09/24/17 04:50 Triglycerides 150 mg/dL (<150) 09/23/17 11:45 Cholesterol 135 mg/dL (<200) 09/23/17 11:45 LDL Cholesterol Direct 72 mg/dL (75-193) L 09/23/17 11:45 HDL Cholesterol 33 mg/dL (23-92) 09/23/17 11:45 Amylase 53 U/L (29-103) 09/23/17 11:45 Lipase 46 U/L (11-82) 09/25/17 04:30 Urine Source CLEAN C 09/23/17 12:15 Urine Color YELLOW 09/23/17 12:15 Urine Clarity HAZY (CLEAR) 09/23/17 12:15 Urine pH 6.0 (4.6 - 8.0) 09/23/17 12:15 Ur Specific [place] 1.020 (1.005-1.030) 09/23/17 12:15 Urine Protein 30 mg/dL (NEGATIVE) H 09/23/17 12:15 Urine Glucose (UA) 100 mg/dL (NEGATIVE) H 09/23/17 12:15 Urine Ketones NEGATIVE mg/dL (NEGATIVE) 09/23/17 12:15 Urine Blood SMALL (NEGATIVE) H 09/23/17 12:15 Urine Nitrate NEGATIVE (NEGATIVE) 09/23/17 12:15 Urine Bilirubin NEGATIVE (NEGATIVE) 09/23/17 12:15 Urine Urobilinogen 0.2 E.U./dL (0.2 - 1.0) 09/23/17 12:15 Ur Leukocyte Esterase TRACE (NEGATIVE) H 09/23/17 12:15 Urine RBC 2-5 /hpf (0-5) 09/23/17 12:15 Urine WBC 6-10 /hpf (0-5) H 09/23/17 12:15 Ur Epithelial Cells FEW /lpf (FEW) 09/23/17 12:15 Urine Bacteria 1+ /hpf (NONE SEEN) H 09/23/17 12:15 Coarse Granular Casts 0-2 /lpf (NONE SEEN) H 09/23/17 12:15 Urine Yeast MODERATE /hpf (NONE SEEN) H 09/23/17 12:15 Ur Random Sodium 88 mmol/L 09/23/17 18:00 Urine Creatinine 28.5 mg/dl 09/23/17 18:00 Urine Microalbumin 127.2 09/23/17 18:00 Microalb/Creat Ratio 446.3 09/23/17 18:00 Stool Occult Blood NEGATIVE (NEGATIVE) 09/24/17 04:00 Blood Type A POSITIVE 09/26/17 16:15 Antibody Screen NEGATIVE 09/26/17 16:15 Crossmatch See Detail 09/23/17 11:45 - Physical Exam Vitals and I&O: Vital Signs Temp 98 F 09/27/17 05:00 Pulse 83 09/27/17 06:00 Resp 14 09/27/17 06:00 BP 142/55 09/27/17 06:00 Pulse Ox 97 09/27/17 06:00 Intake & Output 09/26/17 09/27/17 09/27/17 18:59 06:59 18:59 Intake Total 2703.167 200 506.25 Output Total 1500 1400 Balance 1203.167 -1200 506.25 Weight (lbs) 99.422 kg 103.419 kg Intake: Intake, IV Amount 1353.167 100 506.25 Ciprofloxacin 400mg 200 Premix PB 400 mg In 200 ml @ 200 mls/hr IV Q24H [facility] Rx#:[id number] Fluconazole 100mg/50mL 50 100 mg In 50 ml @ 50 mls/ hr IV Q24HR [facility] Rx#: [id number] Pantoprazole 80 mg In 53.167 100 Sodium Chloride 0.9% 100 ml @ 10 mls/hr IV Q10H [facility] Rx#:[id number] Sodium Chloride 0.9% 1, 1000 506.25 000 ml @ 75 mls/hr IV . [id number] [facility] Rx#:[id number] Oral 1100 100 Blood Product 250 Output: Urine 1500 1400 Other: # Bowel Movements 3 1 Stool Characteristics Liquid Black Green Weight Source Bedscale Bedscale Active Medications: Current Medications Docusate Sodium (Colace) 250 mg PO DAILY [facility] Stop: 11/24/17 15:14 Last Admin: 09/27/17 08:15 Dose: Not Given Ciprofloxacin (Cipro 400mg Premix Pb) 400 mg in 200 mls @ 200 mls/hr IV Q24H [facility] Stop: 11/22/17 14:59 Last Infusion: 09/26/17 15:45 Dose: Infused Pantoprazole Sodium 80 mg/ (Sodium Chloride) 100 mls @ 10 mls/hr IV Q10H [facility] Stop: 11/22/17 17:29 Last Admin: 09/27/17 05:09 Dose: 10 mls/hr Norepinephrine Bitartrate 4 mg (/ Dextrose) 254 mls @ 15.24 mls/hr IV TITR PRN ; Protocol PRN Reason: BP MAINTENANCE (PER PROTOCOL) Stop: 11/23/17 02:23 Last Titration: 09/24/17 18:27 Dose: 0 mcg/min, 0 mls/hr Fluconazole (Diflucan) 100 mg in 50 mls @ 50 mls/hr IV Q24HR [facility] Stop: 11/23/17 13:29 Last Infusion: 09/26/17 14:00 Dose: Infused Sodium Chloride (Nacl 0.9%) 1,000 mls @ 75 mls/hr IV .[id number] [facility] Stop: 11/24/17 14:59 Last Admin: 09/27/17 08:15 Dose: 75 mls/hr Insulin Aspart (Novolog Insulin Sliding Scale) 0 units SUBQ ACHS [facility]; Protocol Stop: 11/22/17 20:59 Last Admin: 09/27/17 06:56 Dose: Not Given Metoclopramide HCl (Reglan) 10 mg IVP Q8HR PRN PRN Reason: nausea/vomiting Stop: 11/22/17 13:39 Miscellaneous (Clinical Monitoring) 1 ea MC PRN PRN PRN Reason: RENAL DOSE Stop: 11/22/17 14:54 Sodium Bicarbonate (Sodium Bicarbonate) 650 mg PO BID [facility]; Protocol Stop: 11/24/17 16:59 Last Admin: 09/27/17 08:14 Dose: 650 mg General: Alert, Oriented x3 HEENT: Atraumatic Neck: Supple, +2 carotid pulse wo bruit Cardiovascular: Regular rate Abdomen: Bowel sounds, Soft, no Tender, no Hepatomegaly, no Splenomegaly, no Distended, no Rebound, no Mass, no Guarding Extremities: no Edema Neurological: Sensation intact Skin: no Rash Psych/Mental Status: Mental status NL - Procedures Procedures: Procedures Procedure Code Date EXCISION OF STOMACH, ENDO [id number] 09/23/17 EXCISION OF STOMACH, ENDO, DIAGN [id number] 09/23/17 TRANSFUSE NONAUT RED BLOOD CELLS IN PERIPH VEIN, PERC 86775E5 09/23/17 Assessment/Plan - Problem List Patient Problems: All Active Problems COFFEE GROUND EMESIS WITH TARRY STOOL (Acute) - Assessment Assessment: # Melena # Anemia # NSAID use Upper GI bleed, likely PUD from naproxen use. EGD on 09/26 showed gastric ulcers, and gastric polyps. Biopsies taken, and 1cm gastric polyp was removed and clipped. Biopsies pending. Plan: - change ppi to bid dosing - advance to soft diet - cycle cbc - f/u biopsy path - avoid NSAIDs going forward
[2017-09-27] MEDS ORDERED: Mag Sulfate 2gm/50mL Premix 2 GM/50 ML BAG IV ONE ×2 (08:49→09:35)
[2017-09-27] MEDS ORDERED: Albuterol Nebulizer 2.5mg/3mL HHN PRN (10:05)
[2017-09-27] MEDS: Ferrous Sulfate 325 MG TAB PO SCH (11:00)
[2017-09-27] MEDS ORDERED: INSULIN ASPART, RECOMBINANT 100 UNITS/ML SUBQ SCH (11:30)
[2017-09-27] MEDS: Fluconazole 100mg/50mL 100 MG/50 ML BOTTLE IV SCH (13:55)
--- NOTE | 2017-09-27 14:03 | Pathology Report ---
[id number] Collection date: 09/26/2017 Surgeon: Dr. Angelina Fuller Specimen Description: 1. Antrum biopsy 2. Gastric ulcer biopsy 3. Gastric polyp Gross Description: Part I: Received in formalin is a 0.3 cm martinez soft tissue fragment. Totally submitted in one cassette labeled A. Gross Description: Part II: Received in formalin are two martinez soft tissue fragments ranging from 0.1 to 0.2 cm in greatest dimension. Totally submitted in one cassette labeled B. Gross Description: Part III: Received in formalin is a 0.5 cm polyp with a well defined pedunculated appearance and a smooth glistening outer surface. The polyp is bisected and totally submitted in one cassette labeled C. Microscopic Description: Part I: The histologic sections show gastric mucosa with mild chronic inflammation present consisting of lymphocytes and plasma cells. The Giemsa stain shows no evidence for Helicobacter pylori. Diagnosis: Part I: 1. Chronic gastritis, antrum biopsy. 2. The Giemsa stain is negative for Helicobacter pylori. Microscopic Description: Part II: The histologic sections show gastric mucosa with mild chronic inflammation present consisting of lymphocytes and plasma cells. The Giemsa stain shows no evidence for Helicobacter pylori. Diagnosis: Part II: 1. Chronic gastritis, gastric ulcer biopsy. 2. The Giemsa stain is negative for Helicobacter pylori. Microscopic Description: Part III: The histologic sections show a polypoid portion of benign gastric mucosa with focal hyperplastic glandular changes present consisting of multiple cystically dilated glands. There is also chronic inflammation present consisting of lymphocytes and plasma cells. The Giemsa stain shows no evidence for Helicobacter pylori. Diagnosis: Part III: 1. Benign hyperplastic gastric polyp. 2. There is also chronic gastritis present. 3. The Giemsa stain is negative for Helicobacter pylori. [facility]# [id number] [facility]
[2017-09-27] MEDS: Ciprofloxacin 400mg Premix PB 400 MG/200 ML BAG IV SCH (14:08)
--- NOTE | 2017-09-27 14:33 | General Progress Note ---
Subjective - Review of Systems Service Date: 09/27/17 Subjective: no further vomiting, had EGD Objective - Results Result Diagrams: 09/27/17 04:05 09/27/17 04:05 Recent Labs: Laboratory Last Values WBC 10.5 Th/cmm (4.8-10.8) 09/27/17 04:05 RBC 2.99 Mil/cmm (3.80-5.20) L 09/27/17 04:05 Hgb 8.7 gm/dL (12-16) L 09/27/17 04:05 Hct 25.5 % (41.0-60) L 09/27/17 04:05 MCV 85.4 fl (81-100) 09/27/17 04:05 MCH 29.0 pg (27.0-31.0) 09/27/17 04:05 MCHC Differential 33.9 pg (28.0-36.0) 09/27/17 04:05 RDW 16.6 % (11.5-20.0) 09/27/17 04:05 Plt Count 194 Th/cmm (150-400) 09/27/17 04:05 MPV 7.2 fl 09/27/17 04:05 Add Manual Diff YES 09/26/17 04:15 Neutrophils % 72.1 % (40.0-80.0) 09/27/17 04:05 Band Neutrophils % 2 % (0-10) 09/26/17 04:15 Lymphocytes % 16.3 % (20.0-50.0) L 09/27/17 04:05 Monocytes % 7.5 % (2.0-10.0) 09/27/17 04:05 Eosinophils % 3.5 % (0.0-5.0) 09/27/17 04:05 Basophils % 0.6 % (0.0-2.0) 09/27/17 04:05 Neutrophils (Manual) 80 % (40-80) 09/26/17 04:15 Lymphocytes 16 % (20-50) L 09/26/17 04:15 Monocytes 1 % (2-10) L 09/26/17 04:15 Eosinophils 1 % (0-5) 09/26/17 04:15 Platelet Estimate ADEQUATE (NORMAL) 09/26/17 04:15 Eos Smear Source URINE 09/23/17 18:00 Eos Smear Total Cells NONE SEEN (NONE SEEN) 09/23/17 18:00 PT 11.0 SECONDS (9.5-11.5) 09/26/17 04:15 INR 1.06 (0.5-1.4) 09/26/17 04:15 Sodium 142 mEq/L (136-145) 09/27/17 04:05 Potassium 3.3 mEq/L (3.5-5.1) L 09/27/17 04:05 Chloride 115 mEq/L (98-107) H 09/27/17 04:05 Carbon Dioxide 22.0 mEq/L (21.0-31.0) 09/27/17 04:05 Anion Gap 8.3 (7.0-16.0) 09/27/17 04:05 BUN 32 mg/dL (7-25) H 09/27/17 04:05 Creatinine 0.8 mg/dL (0.6-1.2) 09/27/17 04:05 Est GFR ( Amer) TNP 09/27/17 04:05 Est GFR (Non-Af Amer) TNP 09/27/17 04:05 BUN/Creatinine Ratio 40.0 09/27/17 04:05 Glucose 98 mg/dL (70-105) 09/27/17 04:05 POC Glucose 105 MG/DL (70 - 105) 09/27/17 11:25 Calcium 8.3 mg/dL (8.6-10.3) L 09/27/17 04:05 Phosphorus 6.6 mg/dL (2.5-5.0) H 09/24/17 04:50 Magnesium 1.6 mg/dL (1.9-2.7) L 09/27/17 04:05 Total Bilirubin 0.2 mg/dL (0.3-1.0) L 09/24/17 04:50 AST 8 U/L (13-39) L 09/24/17 04:50 ALT 3 U/L (7-52) L 09/24/17 04:50 Alkaline Phosphatase 36 U/L (34-104) 09/24/17 04:50 Creatine Kinase 19 U/L (30-223) L 09/23/17 11:45 Troponin I < 0.01 ng/mL (0.01-0.05) L 09/23/17 11:45 B-Natriuretic Peptide 45.4 pg/mL (5.0-100.0) 09/23/17 11:45 Total Protein 5.8 gm/dL (6.0-8.3) L 09/24/17 04:50 Albumin 3.1 gm/dL (3.7-5.3) L 09/24/17 04:50 Globulin 2.7 gm/dL 09/24/17 04:50 Albumin/Globulin Ratio 1.2 (1.0-1.8) 09/24/17 04:50 Triglycerides 150 mg/dL (<150) 09/23/17 11:45 Cholesterol 135 mg/dL (<200) 09/23/17 11:45 LDL Cholesterol Direct 72 mg/dL (75-193) L 09/23/17 11:45 HDL Cholesterol 33 mg/dL (23-92) 09/23/17 11:45 Amylase 53 U/L (29-103) 09/23/17 11:45 Lipase 46 U/L (11-82) 09/25/17 04:30 Urine Source CLEAN C 09/23/17 12:15 Urine Color YELLOW 09/23/17 12:15 Urine Clarity HAZY (CLEAR) 09/23/17 12:15 Urine pH 6.0 (4.6 - 8.0) 09/23/17 12:15 Ur Specific [place] 1.020 (1.005-1.030) 09/23/17 12:15 Urine Protein 30 mg/dL (NEGATIVE) H 09/23/17 12:15 Urine Glucose (UA) 100 mg/dL (NEGATIVE) H 09/23/17 12:15 Urine Ketones NEGATIVE mg/dL (NEGATIVE) 09/23/17 12:15 Urine Blood SMALL (NEGATIVE) H 09/23/17 12:15 Urine Nitrate NEGATIVE (NEGATIVE) 09/23/17 12:15 Urine Bilirubin NEGATIVE (NEGATIVE) 09/23/17 12:15 Urine Urobilinogen 0.2 E.U./dL (0.2 - 1.0) 09/23/17 12:15 Ur Leukocyte Esterase TRACE (NEGATIVE) H 09/23/17 12:15 Urine RBC 2-5 /hpf (0-5) 09/23/17 12:15 Urine WBC 6-10 /hpf (0-5) H 09/23/17 12:15 Ur Epithelial Cells FEW /lpf (FEW) 09/23/17 12:15 Urine Bacteria 1+ /hpf (NONE SEEN) H 09/23/17 12:15 Coarse Granular Casts 0-2 /lpf (NONE SEEN) H 09/23/17 12:15 Urine Yeast MODERATE /hpf (NONE SEEN) H 09/23/17 12:15 Ur Random Sodium 88 mmol/L 09/23/17 18:00 Urine Creatinine 28.5 mg/dl 09/23/17 18:00 Urine Microalbumin 127.2 09/23/17 18:00 Microalb/Creat Ratio 446.3 09/23/17 18:00 Stool Occult Blood NEGATIVE (NEGATIVE) 09/24/17 04:00 Blood Type A POSITIVE 09/26/17 16:15 Antibody Screen NEGATIVE 09/26/17 16:15 Crossmatch See Detail 09/23/17 11:45 - Physical Exam Vitals and I&O: Vital Signs Temp 97.2 F 09/27/17 14:00 Pulse 99 09/27/17 14:00 Resp 14 09/27/17 14:00 BP 150/53 09/27/17 14:00 Pulse Ox 98 09/27/17 14:00 Intake & Output 09/26/17 09/27/17 09/27/17 18:59 06:59 18:59 Intake Total 2703.167 200 506.25 Output Total 1500 1400 Balance 1203.167 -1200 506.25 Weight (lbs) 99.422 kg 103.419 kg Intake: Intake, IV Amount 1353.167 100 506.25 Ciprofloxacin 400mg 200 Premix PB 400 mg In 200 ml @ 200 mls/hr IV Q24H [facility] Rx#:[id number] Fluconazole 100mg/50mL 50 100 mg In 50 ml @ 50 mls/ hr IV Q24HR [facility] Rx#: [id number] Pantoprazole 80 mg In 53.167 100 Sodium Chloride 0.9% 100 ml @ 10 mls/hr IV Q10H [facility] Rx#:[id number] Sodium Chloride 0.9% 1, 1000 506.25 000 ml @ 75 mls/hr IV . [id number] [facility] Rx#:[id number] Oral 1100 100 Blood Product 250 Output: Urine 1500 1400 Other: # Bowel Movements 3 1 Stool Characteristics Liquid Liquid Black Black Green Green [facility] Active Medications: Current Medications Albuterol Sulfate (Albuterol 2.5mg/3ml Neb Ud) 2.5 mg HHN Q6HRT PRN PRN Reason: ASTHMA Stop: 11/26/17 10:04 Amlodipine Besylate (Norvasc) 5 mg PO DAILY [facility] Stop: 11/26/17 10:59 Last Admin: 09/27/17 11:18 Dose: 5 mg Cholecalciferol (Vitamin D3) 1,000 iu PO DAILY [facility] Stop: 11/26/17 10:14 Last Admin: 09/27/17 11:00 Dose: 1,000 iu Docusate Sodium (Colace) 250 mg PO DAILY [facility] Stop: 11/24/17 15:14 Last Admin: 09/27/17 08:15 Dose: Not Given Ferrous Sulfate (Iron) 325 mg PO DAILY [facility] Stop: 11/26/17 10:14 Last Admin: 09/27/17 11:00 Dose: 325 mg Hydrochlorothiazide (Hctz) 25 mg PO DAILY [facility] Stop: 11/26/17 10:14 Last Admin: 09/27/17 11:00 Dose: 25 mg Ciprofloxacin (Cipro 400mg Premix Pb) 400 mg in 200 mls @ 200 mls/hr IV Q24H [facility] Stop: 11/22/17 14:59 Last Admin: 09/27/17 14:08 Dose: 200 mls/hr Norepinephrine Bitartrate 4 mg (/ Dextrose) 254 mls @ 15.24 mls/hr IV TITR PRN ; Protocol PRN Reason: BP MAINTENANCE (PER PROTOCOL) Stop: 11/23/17 02:23 Last Titration: 09/24/17 18:27 Dose: 0 mcg/min, 0 mls/hr Fluconazole (Diflucan) 100 mg in 50 mls @ 50 mls/hr IV Q24HR [facility] Stop: 11/23/17 13:29 Last Admin: 09/27/17 13:55 Dose: 100 mls/hr Sodium Chloride (Nacl 0.9%) 1,000 mls @ 75 mls/hr IV .[id number] [facility] Stop: 11/24/17 14:59 Last Admin: 09/27/17 08:15 Dose: 75 mls/hr Insulin Aspart (Novolog Insulin Sliding Scale) 0 units SUBQ ACHS [facility]; Protocol Stop: 11/22/17 20:59 Last Admin: 09/27/17 11:25 Dose: Not Given Lorazepam (Ativan) 0.5 mg PO Q8H PRN; Protocol PRN Reason: Anxiety Stop: 11/26/17 10:04 Meclizine HCl (Antivert) 25 mg PO PRN PRN PRN Reason: Dizziness Stop: 11/26/17 10:04 Metoclopramide HCl (Reglan) 10 mg IVP Q8HR PRN PRN Reason: nausea/vomiting Stop: 11/22/17 13:39 Metoprolol Succinate (Toprol Xl) 50 mg PO DAILY [facility] Stop: 11/26/17 10:14 Last Admin: 09/27/17 11:00 Dose: 50 mg Miscellaneous (Clinical Monitoring) 1 ea MC PRN PRN PRN Reason: RENAL DOSE Stop: 11/22/17 14:54 Pantoprazole Sodium (Protonix) 40 mg IVP Q12HR [facility] Stop: 11/26/17 08:59 Last Admin: 09/27/17 09:24 Dose: 40 mg Sertraline HCl (Zoloft) 150 mg PO DAILY [facility]; Protocol Stop: 11/27/17 08:59 Simvastatin (Zocor) 40 mg PO HS [facility]; Protocol Stop: 11/26/17 20:59 Sodium Bicarbonate (Sodium Bicarbonate) 650 mg PO BID [facility]; Protocol Stop: 11/24/17 16:59 Last Admin: 09/27/17 08:14 Dose: 650 mg General: Alert, Oriented x3 HEENT: Atraumatic Neck: Supple, +2 carotid pulse wo bruit Cardiovascular: Regular rate Lungs: Clear to auscultation Abdomen: Bowel sounds, Soft, no Tender, no Hepatomegaly, no Splenomegaly, no Distended, no Rebound, no Mass, no Guarding Extremities: no Edema Neurological: Sensation intact Skin: no Rash Psych/Mental Status: Mental status NL - Procedures Procedures: Procedures Procedure Code Date EXCISION OF STOMACH, ENDO [id number] 09/23/17 EXCISION OF STOMACH, ENDO, DIAGN [id number] 09/23/17 TRANSFUSE NONAUT RED BLOOD CELLS IN PERIPH VEIN, PERC 75060F6 09/23/17 Assessment/Plan - Problem List Patient Problems: All Active Problems COFFEE GROUND EMESIS WITH TARRY STOOL (Acute) - Assessment Assessment: SIVA GI Bleed Ess Htn Dyslipidemia GERD Morbid Obesity - Plan Plan: Lab - Result Diagrams 09/25/17 04:30 09/25/17 04:30 Current Medications Ciprofloxacin (Cipro 400mg Premix Pb) 400 mg in 200 mls @ 200 mls/hr IV Q24H [facility] Stop: 11/22/17 14:59 Last Admin: 09/24/17 15:35 Dose: 200 mls/hr Pantoprazole Sodium 80 mg/ (Sodium Chloride) 100 mls @ 10 mls/hr IV Q10H [facility] Stop: 11/22/17 17:29 Last Admin: 09/25/17 11:08 Dose: 10 mls/hr Norepinephrine Bitartrate 4 mg (/ Dextrose) 254 mls @ 15.24 mls/hr IV TITR PRN ; Protocol PRN Reason: BP MAINTENANCE (PER PROTOCOL) Stop: 11/23/17 02:23 Last Titration: 09/24/17 18:27 Dose: 0 mcg/min, 0 mls/hr Fluconazole (Diflucan) 100 mg in 50 mls @ 50 mls/hr IV Q24HR [facility] Stop: 11/23/17 13:29 Last Admin: 09/25/17 13:45 Dose: 100 mls/hr Sodium Chloride (Nacl 0.9%) 1,000 mls @ 75 mls/hr IV .[id number] [facility] Stop: 11/24/17 14:59 Insulin Aspart (Novolog Insulin Sliding Scale) 0 units SUBQ ACHS [facility]; Protocol Stop: 11/22/17 20:59 Last Admin: 09/25/17 13:48 Dose: Not Given Metoclopramide HCl (Reglan) 10 mg IVP Q8HR PRN PRN Reason: nausea/vomiting Stop: 11/22/17 13:39 Miscellaneous (Clinical Monitoring) 1 ea MC PRN PRN PRN Reason: RENAL DOSE Stop: 11/22/17 14:54 Potassium Chloride (Klor-Con) 20 meq PO X1 ONE Stop: 09/25/17 15:00 Sodium Bicarbonate (Sodium Bicarbonate) 650 mg PO BID [facility]; Protocol Stop: 11/24/17 16:59 Lab - Result Diagrams 09/27/17 04:05 09/27/17 04:05 Kidney fnc continues to improve Hgb/Hct up to 8.7/25.5 no obvious bleed f/u electrolytes, cbc replace K, Mg EGD Gastric Ulcer, Gastritis, Polyp still have min. bleed Nutritional Asmnt/Malnutr-PDOC - Dietary Evaluation Malnutrition Findings (Please click <Entered> for more info): Nutritional Asmnt/Malnutrition Start: 09/24/17 10: 10 Text: Status: Complete Freq: Protocol: Document 09/24/17 10:41 HAIDER (Rec: 09/24/17 11:14 HAIDER IVERSON- [email or web address]) Nutritional Asmnt/Malnutrition Patient General Information Nutritional Screening Consult Diagnosis Hypotension, GI Bleed, Acute Renal Insufficiency Pertinent Medical Hx/Surgical Hx OSTEOARTHRITIS, DJD, HYPERLIPIDEMIA, VERTIGO, MORBID OBESITY, DEBILITY, RECENT FALL, LEUKOCYTOSIS, UTI , ATAXIA, COPD, GENERALIZED WEAKNESS, ALOC Subjective Information Consult for Diabetic, loss of appetite, lost 20lbs in 3 months. Patient was admitted from an extended Care facility . Was admitted for coffee ground emesis and black tarry stool. Per nursing notes, patient has lost ~20lbs over the past 3 months and has had a poor appetite >1 week. Patient asleep in bed at time of visit. Current Diet Order/ Nutrition Support clear liquid Patient / S.O Not Indicated Pertinent Medications novolog, Reglan Pertinent Labs (09/24) BUN 139, Cr 3.2, Ca 7.7 , Phosphorus 6.6, Albumin 3.1 Nutritional Hx/Data Height 1.6 m Height (Calculated Centimeters) 160.0 Current Weight (lbs) 104.326 kg Weight (Calculated Kilograms) 104.3 Weight (Calculated Grams) 786831.2 [place] Body Weight 115 % [place] Body Weight 200 Body Mass Index (BMI) 40.7 Recent Weight Change Yes Weight Status Morbidly Obese GI Symptoms GI Symptoms Vomitting Last BM 09/24 Difficult in: None Food Allergies No Cultural/Ethnic/Caodaism Belief None indicated Usual diet at home Unknown Skin Integrity/Comment: Dinh 15, Intact Estimated Nutritional Goals BEE in Kcals: Adj wt of IBW Calories/Kcals/Kg 25-30 kcal/kg using ADj BW 65. 3kg Kcals Calculated ~1716-8779 kcal/day Protein: Adj wt of IBW Protein g/k-1.2 gm/kg using Adj BW Protein Calculated 65-80 gm/day Fluid: ml ~0665-0696 ml/day (1 ml/kcal) Nutritional Problem 2. Problem Problem Inadequate oral intake related to Etiology clear liquid diet due to GI bleed aeb Signs/Symptoms: current diet/intake meeting < 25% of estimated nutrient needs. 1. Problem Problem Altered nutrition related lab values related to Etiology electrolyte imbalance aeb Signs/Symptoms: Ca 7.7, Phosphorus 6.6 Intervention/Recommendation Comments 1. When medically appropriate, progress diet to Renal diet ( low in phosphorus) as tolerated by patient. 2. MD to consider phosphorus binder with meals. 3. Will provide Renal diet education when appropriate. Expected Outcomes/Goals Expected Outcomes/Goals Oral intake to meet >75% of nutrient needs, weight stable or trend toward ideal body weight, nutrition related labs normalize F/U in 3-5 days as MR ( )
[2017-09-27] MEDS ORDERED: Sodium Chloride 0.9% 1,000 ML IV SCH (14:45)
[2017-09-28 04:49] LABS: % BASOPHILS 0.4 % (0.0-2.0); % EOSINOPHILS 3.4 % (0.0-5.0); % LYMPHOCYTES 15.2 % (20.0-50.0); % MONOCYTES 7.7 % (2.0-10.0); % NEUTROPHILS 73.3 % (40.0-80.0); EOSINOPHILE ABSOLUTE 0.4 Th/cmm (0.1-0.4); HEMATOCRIT 24.8 % (41.0-60); HEMOGLOBIN 8.5 gm/dL (12-16); LYMPHOCYTE ABSOLUTE 1.9 Th/cmm (1.5-3.0); MEAN CELL VOLUME 84.1 fl (81-100); MEAN CORPUSCULAR HEMOGLOBIN 28.7 pg (27.0-31.0); MEAN CORPUSCULAR HGB CONC 34.2 pg (28.0-36.0); MEAN PLATELET VOLUME 7.1 fl; MONOCYTE ABSOLUTE 0.9 Th/cmm (0.3-1.0); NEUTROPHILE ABSOLUTE 9.1 Th/cmm (1.8-8.0); PLATELET COUNT 192 Th/cmm (150-400); RED BLOOD COUNT 2.95 Mil/cmm (3.80-5.20); RED CELL DISTRIBUTION WIDTH 16.4 % (11.5-20.0); WHITE BLOOD COUNT 12.3 Th/cmm (4.8-10.8)
[2017-09-28 05:09] LABS: ANION GAP 7.4 (7.0-16.0); BUN - UREA NITROGEN 17 mg/dL (7-25); CALCIUM SERUM 7.9 mg/dL (8.6-10.3); CARBON DIOXIDE 23.1 mEq/L (21.0-31.0); CHLORIDE 112 mEq/L (98-107); CREATININE - SERUM 0.7 mg/dL (0.6-1.2); GLUCOSE 103 mg/dL (70-105); MAGNESIUM 1.4 mg/dL (1.9-2.7); POTASSIUM SERUM 3.5 mEq/L (3.5-5.1); SODIUM SERUM 139 mEq/L (136-145)
[2017-09-28] MEDS: INSULIN ASPART SLIDING SCALE 100 UNITS/ML UNIT SUBQ SCH ×4 (08:08→21:36)
[2017-09-28] MEDS: Ferrous Sulfate 325 MG TAB PO SCH (08:37)
--- NOTE | 2017-09-28 08:43 | GI Progress Note ---
Subjective - Review of Systems Service Date: 09/28/17 Subjective: Passing brown stool. Objective - Results Result Diagrams: 09/28/17 04:40 09/28/17 04:40 Recent Labs: Laboratory Last Values WBC 12.3 Th/cmm (4.8-10.8) H 09/28/17 04:40 RBC 2.95 Mil/cmm (3.80-5.20) L 09/28/17 04:40 Hgb 8.5 gm/dL (12-16) L 09/28/17 04:40 Hct 24.8 % (41.0-60) L 09/28/17 04:40 MCV 84.1 fl (81-100) 09/28/17 04:40 MCH 28.7 pg (27.0-31.0) 09/28/17 04:40 MCHC Differential 34.2 pg (28.0-36.0) 09/28/17 04:40 RDW 16.4 % (11.5-20.0) 09/28/17 04:40 Plt Count 192 Th/cmm (150-400) 09/28/17 04:40 MPV 7.1 fl 09/28/17 04:40 Add Manual Diff YES 09/26/17 04:15 Neutrophils % 73.3 % (40.0-80.0) 09/28/17 04:40 Band Neutrophils % 2 % (0-10) 09/26/17 04:15 Lymphocytes % 15.2 % (20.0-50.0) L 09/28/17 04:40 Monocytes % 7.7 % (2.0-10.0) 09/28/17 04:40 Eosinophils % 3.4 % (0.0-5.0) 09/28/17 04:40 Basophils % 0.4 % (0.0-2.0) 09/28/17 04:40 Neutrophils (Manual) 80 % (40-80) 09/26/17 04:15 Lymphocytes 16 % (20-50) L 09/26/17 04:15 Monocytes 1 % (2-10) L 09/26/17 04:15 Eosinophils 1 % (0-5) 09/26/17 04:15 Platelet Estimate ADEQUATE (NORMAL) 09/26/17 04:15 Eos Smear Source URINE 09/23/17 18:00 Eos Smear Total Cells NONE SEEN (NONE SEEN) 09/23/17 18:00 PT 11.0 SECONDS (9.5-11.5) 09/26/17 04:15 INR 1.06 (0.5-1.4) 09/26/17 04:15 Sodium 139 mEq/L (136-145) 09/28/17 04:40 Potassium 3.5 mEq/L (3.5-5.1) 09/28/17 04:40 Chloride 112 mEq/L (98-107) H 09/28/17 04:40 Carbon Dioxide 23.1 mEq/L (21.0-31.0) 09/28/17 04:40 Anion Gap 7.4 (7.0-16.0) 09/28/17 04:40 BUN 17 mg/dL (7-25) 09/28/17 04:40 Creatinine 0.7 mg/dL (0.6-1.2) 09/28/17 04:40 Est GFR ( Amer) TNP 09/28/17 04:40 Est GFR (Non-Af Amer) TNP 09/28/17 04:40 BUN/Creatinine Ratio 24.3 09/28/17 04:40 Glucose 103 mg/dL (70-105) 09/28/17 04:40 POC Glucose 114 MG/DL (70 - 105) H 09/28/17 07:50 Calcium 7.9 mg/dL (8.6-10.3) L 09/28/17 04:40 Phosphorus 6.6 mg/dL (2.5-5.0) H 09/24/17 04:50 Magnesium 1.4 mg/dL (1.9-2.7) L 09/28/17 04:40 Total Bilirubin 0.2 mg/dL (0.3-1.0) L 09/24/17 04:50 AST 8 U/L (13-39) L 09/24/17 04:50 ALT 3 U/L (7-52) L 09/24/17 04:50 Alkaline Phosphatase 36 U/L (34-104) 09/24/17 04:50 Creatine Kinase 19 U/L (30-223) L 09/23/17 11:45 Troponin I < 0.01 ng/mL (0.01-0.05) L 09/23/17 11:45 B-Natriuretic Peptide 45.4 pg/mL (5.0-100.0) 09/23/17 11:45 Total Protein 5.8 gm/dL (6.0-8.3) L 09/24/17 04:50 Albumin 3.1 gm/dL (3.7-5.3) L 09/24/17 04:50 Globulin 2.7 gm/dL 09/24/17 04:50 Albumin/Globulin Ratio 1.2 (1.0-1.8) 09/24/17 04:50 Triglycerides 150 mg/dL (<150) 09/23/17 11:45 Cholesterol 135 mg/dL (<200) 09/23/17 11:45 LDL Cholesterol Direct 72 mg/dL (75-193) L 09/23/17 11:45 HDL Cholesterol 33 mg/dL (23-92) 09/23/17 11:45 Amylase 53 U/L (29-103) 09/23/17 11:45 Lipase 46 U/L (11-82) 09/25/17 04:30 Urine Source CLEAN C 09/23/17 12:15 Urine Color YELLOW 09/23/17 12:15 Urine Clarity HAZY (CLEAR) 09/23/17 12:15 Urine pH 6.0 (4.6 - 8.0) 09/23/17 12:15 Ur Specific [place] 1.020 (1.005-1.030) 09/23/17 12:15 Urine Protein 30 mg/dL (NEGATIVE) H 09/23/17 12:15 Urine Glucose (UA) 100 mg/dL (NEGATIVE) H 09/23/17 12:15 Urine Ketones NEGATIVE mg/dL (NEGATIVE) 09/23/17 12:15 Urine Blood SMALL (NEGATIVE) H 09/23/17 12:15 Urine Nitrate NEGATIVE (NEGATIVE) 09/23/17 12:15 Urine Bilirubin NEGATIVE (NEGATIVE) 09/23/17 12:15 Urine Urobilinogen 0.2 E.U./dL (0.2 - 1.0) 09/23/17 12:15 Ur Leukocyte Esterase TRACE (NEGATIVE) H 09/23/17 12:15 Urine RBC 2-5 /hpf (0-5) 09/23/17 12:15 Urine WBC 6-10 /hpf (0-5) H 09/23/17 12:15 Ur Epithelial Cells FEW /lpf (FEW) 09/23/17 12:15 Urine Bacteria 1+ /hpf (NONE SEEN) H 09/23/17 12:15 Coarse Granular Casts 0-2 /lpf (NONE SEEN) H 09/23/17 12:15 Urine Yeast MODERATE /hpf (NONE SEEN) H 09/23/17 12:15 Ur Random Sodium 88 mmol/L 09/23/17 18:00 Urine Creatinine 28.5 mg/dl 09/23/17 18:00 Urine Microalbumin 127.2 09/23/17 18:00 Microalb/Creat Ratio 446.3 09/23/17 18:00 Stool Occult Blood NEGATIVE (NEGATIVE) 09/24/17 04:00 Blood Type A POSITIVE 09/26/17 16:15 Antibody Screen NEGATIVE 09/26/17 16:15 Crossmatch See Detail 09/23/17 11:45 - Physical Exam Vitals and I&O: Vital Signs Temp 98.7 F 09/28/17 06:00 Pulse 98 09/28/17 08:39 Resp 15 09/28/17 06:00 BP 173/73 09/28/17 08:39 Pulse Ox 98 09/28/17 06:00 Intake & Output 09/27/17 09/28/17 09/28/17 18:59 06:59 18:59 Intake Total 1706.25 696.667 Output Total 1000 1200 Balance 706.25 -503.333 Weight (lbs) 103.674 kg 103.419 kg Intake: Intake, IV Amount 756.25 576.667 Ciprofloxacin 400mg 200 Premix PB 400 mg In 200 ml @ 200 mls/hr IV Q24H [facility] Rx#:[id number] Fluconazole 100mg/50mL 50 100 mg In 50 ml @ 50 mls/ hr IV Q24HR [facility] Rx#: [id number] Sodium Chloride 0.9% 1, 576.667 000 ml @ 40 mls/hr IV . Q24H [facility] Rx#:[id number] Sodium Chloride 0.9% 1, 506.25 000 ml @ 75 mls/hr IV . [id number] [facility] Rx#:[id number] Oral 950 120 Output: Urine 1000 1200 Other: # Bowel Movements 3 1 Stool Characteristics Liquid Liquid Brown Green Green Weight Source Bedscale Bedscale Active Medications: Current Medications Albuterol Sulfate (Albuterol 2.5mg/3ml Neb Ud) 2.5 mg HHN Q6HRT PRN PRN Reason: ASTHMA Stop: 11/26/17 10:04 Amlodipine Besylate (Norvasc) 5 mg PO DAILY [facility] Stop: 11/26/17 10:59 Last Admin: 09/28/17 08:39 Dose: 5 mg Cholecalciferol (Vitamin D3) 1,000 iu PO DAILY [facility] Stop: 11/26/17 10:14 Last Admin: 09/28/17 08:38 Dose: 1,000 iu Docusate Sodium (Colace) 250 mg PO DAILY [facility] Stop: 11/24/17 15:14 Last Admin: 09/27/17 08:15 Dose: Not Given Ferrous Sulfate (Iron) 325 mg PO DAILY [facility] Stop: 11/26/17 10:14 Last Admin: 09/28/17 08:37 Dose: 325 mg Hydrochlorothiazide (Hctz) 25 mg PO DAILY [facility] Stop: 11/26/17 10:14 Last Admin: 09/28/17 08:38 Dose: 25 mg Ciprofloxacin (Cipro 400mg Premix Pb) 400 mg in 200 mls @ 200 mls/hr IV Q24H [facility] Stop: 11/22/17 14:59 Last Infusion: 09/27/17 15:10 Dose: Infused Norepinephrine Bitartrate 4 mg (/ Dextrose) 254 mls @ 15.24 mls/hr IV TITR PRN ; Protocol PRN Reason: BP MAINTENANCE (PER PROTOCOL) Stop: 11/23/17 02:23 Last Titration: 09/24/17 18:27 Dose: 0 mcg/min, 0 mls/hr Fluconazole (Diflucan) 100 mg in 50 mls @ 50 mls/hr IV Q24HR [facility] Stop: 11/23/17 13:29 Last Infusion: 09/27/17 15:25 Dose: Infused Sodium Chloride (Nacl 0.9%) 1,000 mls @ 40 mls/hr IV .Q24H [facility] Stop: 11/26/17 14:44 Last Infusion: 09/28/17 06:46 Dose: 40 mls/hr Insulin Aspart (Novolog Insulin Sliding Scale) 0 units SUBQ ACHS [facility]; Protocol Stop: 11/22/17 20:59 Last Admin: 09/28/17 08:08 Dose: Not Given Lorazepam (Ativan) 0.5 mg PO Q8H PRN; Protocol PRN Reason: Anxiety Stop: 11/26/17 10:04 Last Admin: 09/27/17 22:20 Dose: 0.5 mg Meclizine HCl (Antivert) 25 mg PO PRN PRN PRN Reason: Dizziness Stop: 11/26/17 10:04 Metoclopramide HCl (Reglan) 10 mg IVP Q8HR PRN PRN Reason: nausea/vomiting Stop: 11/22/17 13:39 Metoprolol Succinate (Toprol Xl) 50 mg PO DAILY [facility] Stop: 11/26/17 10:14 Last Admin: 09/28/17 08:37 Dose: 50 mg Miscellaneous (Clinical Monitoring) 1 ea MC PRN PRN PRN Reason: RENAL DOSE Stop: 11/22/17 14:54 Pantoprazole Sodium (Protonix) 40 mg IVP Q12HR [facility] Stop: 11/26/17 08:59 Last Admin: 09/28/17 08:39 Dose: 40 mg Sertraline HCl (Zoloft) 150 mg PO DAILY [facility]; Protocol Stop: 11/27/17 08:59 Simvastatin (Zocor) 40 mg PO HS [facility]; Protocol Stop: 11/26/17 20:59 Last Admin: 09/27/17 21:13 Dose: 40 mg Sodium Bicarbonate (Sodium Bicarbonate) 650 mg PO BID [facility]; Protocol Stop: 11/24/17 16:59 Last Admin: 09/28/17 08:37 Dose: 650 mg General: Alert, Oriented x3 HEENT: Atraumatic Neck: Supple Cardiovascular: Regular rate Abdomen: Bowel sounds, Soft, no Tender, no Hepatomegaly, no Splenomegaly, no Distended, no Rebound, no Mass, no Guarding Extremities: no Edema Neurological: Sensation intact Skin: no Rash Psych/Mental Status: Mental status NL - Procedures Procedures: Procedures Procedure Code Date EXCISION OF STOMACH, ENDO [id number] 09/23/17 EXCISION OF STOMACH, ENDO, DIAGN [id number] 09/23/17 TRANSFUSE NONAUT RED BLOOD CELLS IN PERIPH VEIN, PERC 19475M6 09/23/17 Assessment/Plan - Problem List Patient Problems: All Active Problems COFFEE GROUND EMESIS WITH TARRY STOOL (Acute) - Assessment Assessment: # Melena # Anemia # NSAID use Upper GI bleed, likely PUD from naproxen use. EGD on 09/26 showed gastric ulcers, and gastric polyps. Biopsies taken, and 1cm gastric polyp was removed and clipped. Path shows hyperplastic polyps and no H pylori. Plan: - change ppi to bid dosing. Suggest she take this for 6 weeks, then transition to daily - advance to soft diet - cycle cbc, stable - avoid NSAIDs going forward
[2017-09-28] MEDS ORDERED: Magnesium Sulfate 3 GM in Sodium Chloride 0.9% 100 ML IV ONE (10:00)
[2017-09-28] MEDS: Potassium Chloride 20 mEq ER Tab PO SCH (10:03)
[2017-09-28] MEDS: Fluconazole 100mg/50mL 100 MG/50 ML BOTTLE IV SCH (13:09)
--- NOTE | 2017-09-28 14:17 | General Progress Note ---
Subjective - Review of Systems Service Date: 09/28/17 Subjective: tolerating meals Objective - Results Result Diagrams: 09/28/17 04:40 09/28/17 04:40 Recent Labs: Laboratory Last Values WBC 12.3 Th/cmm (4.8-10.8) H 09/28/17 04:40 RBC 2.95 Mil/cmm (3.80-5.20) L 09/28/17 04:40 Hgb 8.5 gm/dL (12-16) L 09/28/17 04:40 Hct 24.8 % (41.0-60) L 09/28/17 04:40 MCV 84.1 fl (81-100) 09/28/17 04:40 MCH 28.7 pg (27.0-31.0) 09/28/17 04:40 MCHC Differential 34.2 pg (28.0-36.0) 09/28/17 04:40 RDW 16.4 % (11.5-20.0) 09/28/17 04:40 Plt Count 192 Th/cmm (150-400) 09/28/17 04:40 MPV 7.1 fl 09/28/17 04:40 Add Manual Diff YES 09/26/17 04:15 Neutrophils % 73.3 % (40.0-80.0) 09/28/17 04:40 Band Neutrophils % 2 % (0-10) 09/26/17 04:15 Lymphocytes % 15.2 % (20.0-50.0) L 09/28/17 04:40 Monocytes % 7.7 % (2.0-10.0) 09/28/17 04:40 Eosinophils % 3.4 % (0.0-5.0) 09/28/17 04:40 Basophils % 0.4 % (0.0-2.0) 09/28/17 04:40 Neutrophils (Manual) 80 % (40-80) 09/26/17 04:15 Lymphocytes 16 % (20-50) L 09/26/17 04:15 Monocytes 1 % (2-10) L 09/26/17 04:15 Eosinophils 1 % (0-5) 09/26/17 04:15 Platelet Estimate ADEQUATE (NORMAL) 09/26/17 04:15 Eos Smear Source URINE 09/23/17 18:00 Eos Smear Total Cells NONE SEEN (NONE SEEN) 09/23/17 18:00 PT 11.0 SECONDS (9.5-11.5) 09/26/17 04:15 INR 1.06 (0.5-1.4) 09/26/17 04:15 Sodium 139 mEq/L (136-145) 09/28/17 04:40 Potassium 3.5 mEq/L (3.5-5.1) 09/28/17 04:40 Chloride 112 mEq/L (98-107) H 09/28/17 04:40 Carbon Dioxide 23.1 mEq/L (21.0-31.0) 09/28/17 04:40 Anion Gap 7.4 (7.0-16.0) 09/28/17 04:40 BUN 17 mg/dL (7-25) 09/28/17 04:40 Creatinine 0.7 mg/dL (0.6-1.2) 09/28/17 04:40 Est GFR ( Amer) TNP 09/28/17 04:40 Est GFR (Non-Af Amer) TNP 09/28/17 04:40 BUN/Creatinine Ratio 24.3 09/28/17 04:40 Glucose 103 mg/dL (70-105) 09/28/17 04:40 POC Glucose 113 MG/DL (70 - 105) H 09/28/17 12:20 Calcium 7.9 mg/dL (8.6-10.3) L 09/28/17 04:40 Phosphorus 6.6 mg/dL (2.5-5.0) H 09/24/17 04:50 Magnesium 1.4 mg/dL (1.9-2.7) L 09/28/17 04:40 Total Bilirubin 0.2 mg/dL (0.3-1.0) L 09/24/17 04:50 AST 8 U/L (13-39) L 09/24/17 04:50 ALT 3 U/L (7-52) L 09/24/17 04:50 Alkaline Phosphatase 36 U/L (34-104) 09/24/17 04:50 Creatine Kinase 19 U/L (30-223) L 09/23/17 11:45 Troponin I < 0.01 ng/mL (0.01-0.05) L 09/23/17 11:45 B-Natriuretic Peptide 45.4 pg/mL (5.0-100.0) 09/23/17 11:45 Total Protein 5.8 gm/dL (6.0-8.3) L 09/24/17 04:50 Albumin 3.1 gm/dL (3.7-5.3) L 09/24/17 04:50 Globulin 2.7 gm/dL 09/24/17 04:50 Albumin/Globulin Ratio 1.2 (1.0-1.8) 09/24/17 04:50 Triglycerides 150 mg/dL (<150) 09/23/17 11:45 Cholesterol 135 mg/dL (<200) 09/23/17 11:45 LDL Cholesterol Direct 72 mg/dL (75-193) L 09/23/17 11:45 HDL Cholesterol 33 mg/dL (23-92) 09/23/17 11:45 Amylase 53 U/L (29-103) 09/23/17 11:45 Lipase 46 U/L (11-82) 09/25/17 04:30 Urine Source CLEAN C 09/23/17 12:15 Urine Color YELLOW 09/23/17 12:15 Urine Clarity HAZY (CLEAR) 09/23/17 12:15 Urine pH 6.0 (4.6 - 8.0) 09/23/17 12:15 Ur Specific [place] 1.020 (1.005-1.030) 09/23/17 12:15 Urine Protein 30 mg/dL (NEGATIVE) H 09/23/17 12:15 Urine Glucose (UA) 100 mg/dL (NEGATIVE) H 09/23/17 12:15 Urine Ketones NEGATIVE mg/dL (NEGATIVE) 09/23/17 12:15 Urine Blood SMALL (NEGATIVE) H 09/23/17 12:15 Urine Nitrate NEGATIVE (NEGATIVE) 09/23/17 12:15 Urine Bilirubin NEGATIVE (NEGATIVE) 09/23/17 12:15 Urine Urobilinogen 0.2 E.U./dL (0.2 - 1.0) 09/23/17 12:15 Ur Leukocyte Esterase TRACE (NEGATIVE) H 09/23/17 12:15 Urine RBC 2-5 /hpf (0-5) 09/23/17 12:15 Urine WBC 6-10 /hpf (0-5) H 09/23/17 12:15 Ur Epithelial Cells FEW /lpf (FEW) 09/23/17 12:15 Urine Bacteria 1+ /hpf (NONE SEEN) H 09/23/17 12:15 Coarse Granular Casts 0-2 /lpf (NONE SEEN) H 09/23/17 12:15 Urine Yeast MODERATE /hpf (NONE SEEN) H 09/23/17 12:15 Ur Random Sodium 88 mmol/L 09/23/17 18:00 Urine Creatinine 28.5 mg/dl 09/23/17 18:00 Urine Microalbumin 127.2 09/23/17 18:00 Microalb/Creat Ratio 446.3 09/23/17 18:00 Stool Occult Blood NEGATIVE (NEGATIVE) 09/24/17 04:00 Blood Type A POSITIVE 09/26/17 16:15 Antibody Screen NEGATIVE 09/26/17 16:15 Crossmatch See Detail 09/23/17 11:45 - Physical Exam Vitals and I&O: Vital Signs Temp 98.3 F 09/28/17 12:00 Pulse 81 09/28/17 13:00 Resp 17 09/28/17 13:00 BP 166/75 09/28/17 13:00 Pulse Ox 98 09/28/17 13:00 Intake & Output 09/27/17 09/28/17 09/28/17 18:59 06:59 18:59 Intake Total 1706.25 696.667 156 Output Total 1000 1200 Balance 706.25 -503.333 156 Weight (lbs) 103.674 kg 103.419 kg Intake: Intake, IV Amount 756.25 576.667 156 Ciprofloxacin 400mg 200 Premix PB 400 mg In 200 ml @ 200 mls/hr IV Q24H [facility] Rx#:[id number] Fluconazole 100mg/50mL 50 50 100 mg In 50 ml @ 50 mls/ hr IV Q24HR [facility] Rx#: [id number] Magnesium Sulfate 3 gm In 106 Sodium Chloride 0.9% 100 ml @ 35 mls/hr IV ONCE ONE Rx#:[id number] Sodium Chloride 0.9% 1, 576.667 000 ml @ 40 mls/hr IV . Q24H [facility] Rx#:[id number] Sodium Chloride 0.9% 1, 506.25 000 ml @ 75 mls/hr IV . [id number] [facility] Rx#:[id number] Oral 950 120 Output: Urine 1000 1200 Other: # Bowel Movements 3 1 Stool Characteristics Liquid Liquid Brown Green Green Weight Source Bedscale Bedscale Active Medications: Current Medications Acetaminophen (Tylenol) 650 mg PO Q4HR PRN PRN Reason: Pain or Fever >101 Stop: 11/27/17 09:38 Albuterol Sulfate (Albuterol 2.5mg/3ml Neb Ud) 2.5 mg HHN Q6HRT PRN PRN Reason: ASTHMA Stop: 11/26/17 10:04 Amlodipine Besylate (Norvasc) 5 mg PO DAILY [facility] Stop: 11/26/17 10:59 Last Admin: 09/28/17 08:39 Dose: 5 mg Cholecalciferol (Vitamin D3) 1,000 iu PO DAILY [facility] Stop: 11/26/17 10:14 Last Admin: 09/28/17 08:38 Dose: 1,000 iu Docusate Sodium (Colace) 250 mg PO DAILY [facility] Stop: 11/24/17 15:14 Last Admin: 09/28/17 08:56 Dose: Not Given Ferrous Sulfate (Iron) 325 mg PO DAILY [facility] Stop: 11/26/17 10:14 Last Admin: 09/28/17 08:37 Dose: 325 mg Hydrochlorothiazide (Hctz) 25 mg PO DAILY [facility] Stop: 11/26/17 10:14 Last Admin: 09/28/17 08:38 Dose: 25 mg Ciprofloxacin (Cipro 400mg Premix Pb) 400 mg in 200 mls @ 200 mls/hr IV Q24H [facility] Stop: 11/22/17 14:59 Last Infusion: 09/27/17 15:10 Dose: Infused Fluconazole (Diflucan) 100 mg in 50 mls @ 50 mls/hr IV Q24HR [facility] Stop: 11/23/17 13:29 Last Infusion: 09/28/17 14:06 Dose: Infused Sodium Chloride (Nacl 0.9%) 1,000 mls @ 40 mls/hr IV .Q24H [facility] Stop: 11/26/17 14:44 Last Infusion: 09/28/17 06:46 Dose: 40 mls/hr Insulin Aspart (Novolog Insulin Sliding Scale) 0 units SUBQ ACHS [facility]; Protocol Stop: 11/22/17 20:59 Last Admin: 09/28/17 12:24 Dose: Not Given Lorazepam (Ativan) 0.5 mg PO Q8H PRN; Protocol PRN Reason: Anxiety Stop: 11/26/17 10:04 Last Admin: 09/27/17 22:20 Dose: 0.5 mg Meclizine HCl (Antivert) 25 mg PO PRN PRN PRN Reason: Dizziness Stop: 11/26/17 10:04 Metoclopramide HCl (Reglan) 10 mg IVP Q8HR PRN PRN Reason: nausea/vomiting Stop: 11/22/17 13:39 Metoprolol Succinate (Toprol Xl) 50 mg PO BID [facility] Stop: 11/27/17 09:44 Last Admin: 09/28/17 12:10 Dose: Not Given Miscellaneous (Clinical Monitoring) 1 ea MC PRN PRN PRN Reason: RENAL DOSE Stop: 11/22/17 14:54 Pantoprazole Sodium (Protonix) 40 mg IVP Q12HR [facility] Stop: 11/26/17 08:59 Last Admin: 09/28/17 08:39 Dose: 40 mg Potassium Chloride (Klor-Con) 20 meq PO DAILY [facility] Stop: 11/27/17 09:29 Last Admin: 09/28/17 10:03 Dose: 20 meq Sertraline HCl (Zoloft) 150 mg PO DAILY [facility]; Protocol Stop: 11/27/17 08:59 Simvastatin (Zocor) 40 mg PO HS [facility]; Protocol Stop: 11/26/17 20:59 Last Admin: 09/27/17 21:13 Dose: 40 mg Sodium Bicarbonate (Sodium Bicarbonate) 650 mg PO BID [facility]; Protocol Stop: 11/24/17 16:59 Last Admin: 09/28/17 08:37 Dose: 650 mg General: Alert, Oriented x3 HEENT: Atraumatic Neck: Supple Cardiovascular: Regular rate Lungs: Clear to auscultation Abdomen: Bowel sounds, Soft, no Tender, no Hepatomegaly, no Splenomegaly, no Distended, no Rebound, no Mass, no Guarding Extremities: no Edema Neurological: Sensation intact Skin: no Rash Psych/Mental Status: Mental status NL - Procedures Procedures: Procedures Procedure Code Date EXCISION OF STOMACH, ENDO [id number] 09/23/17 EXCISION OF STOMACH, ENDO, DIAGN [id number] 09/23/17 TRANSFUSE NONAUT RED BLOOD CELLS IN PERIPH VEIN, PERC 13021U9 09/23/17 Assessment/Plan - Problem List Patient Problems: All Active Problems COFFEE GROUND EMESIS WITH TARRY STOOL (Acute) - Assessment Assessment: SIVA GI Bleed Ess Htn Dyslipidemia GERD Morbid Obesity - Plan Plan: Lab - Result Diagrams 09/25/17 04:30 09/25/17 04:30 Current Medications Ciprofloxacin (Cipro 400mg Premix Pb) 400 mg in 200 mls @ 200 mls/hr IV Q24H [facility] Stop: 11/22/17 14:59 Last Admin: 09/24/17 15:35 Dose: 200 mls/hr Pantoprazole Sodium 80 mg/ (Sodium Chloride) 100 mls @ 10 mls/hr IV Q10H [facility] Stop: 11/22/17 17:29 Last Admin: 09/25/17 11:08 Dose: 10 mls/hr Norepinephrine Bitartrate 4 mg (/ Dextrose) 254 mls @ 15.24 mls/hr IV TITR PRN ; Protocol PRN Reason: BP MAINTENANCE (PER PROTOCOL) Stop: 11/23/17 02:23 Last Titration: 09/24/17 18:27 Dose: 0 mcg/min, 0 mls/hr Fluconazole (Diflucan) 100 mg in 50 mls @ 50 mls/hr IV Q24HR [facility] Stop: 11/23/17 13:29 Last Admin: 09/25/17 13:45 Dose: 100 mls/hr Sodium Chloride (Nacl 0.9%) 1,000 mls @ 75 mls/hr IV .[id number] [facility] Stop: 11/24/17 14:59 Insulin Aspart (Novolog Insulin Sliding Scale) 0 units SUBQ ACHS [facility]; Protocol Stop: 11/22/17 20:59 Last Admin: 09/25/17 13:48 Dose: Not Given Metoclopramide HCl (Reglan) 10 mg IVP Q8HR PRN PRN Reason: nausea/vomiting Stop: 11/22/17 13:39 Miscellaneous (Clinical Monitoring) 1 ea MC PRN PRN PRN Reason: RENAL DOSE Stop: 11/22/17 14:54 Potassium Chloride (Klor-Con) 20 meq PO X1 [facility] Stop: 09/25/17 15:00 Sodium Bicarbonate (Sodium Bicarbonate) 650 mg PO BID [facility]; Protocol Stop: 11/24/17 16:59 Lab - Result Diagrams 09/28/17 04:40 09/28/17 04:40 Kidney fnc continues to improve f/u electrolytes, cbc, mg replace K, Mg EGD Gastric Ulcer, Gastritis, Polyp Nutritional Asmnt/Malnutr-PDOC - Dietary Evaluation Malnutrition Findings (Please click <Entered> for more info): Nutritional Asmnt/Malnutrition Start: 09/24/17 10: 10 Text: Status: Complete Freq: Protocol: Document 09/24/17 10:41 HAIDER (Rec: 09/24/17 11:14 [email or web address] [email or web address]- [email or web address]) Nutritional Asmnt/Malnutrition Patient General Information Nutritional Screening Consult Diagnosis Hypotension, GI Bleed, Acute Renal Insufficiency Pertinent Medical Hx/Surgical Hx OSTEOARTHRITIS, DJD, HYPERLIPIDEMIA, VERTIGO, MORBID OBESITY, DEBILITY, RECENT FALL, LEUKOCYTOSIS, UTI , ATAXIA, COPD, GENERALIZED WEAKNESS, ALOC Subjective Information Consult for Diabetic, loss of appetite, lost 20lbs in 3 months. Patient was admitted from an extended Care facility . Was admitted for coffee ground emesis and black tarry stool. Per nursing notes, patient has lost ~20lbs over the past 3 months and has had a poor appetite >1 week. Patient asleep in bed at time of visit. Current Diet Order/ Nutrition Support clear liquid Patient / S.O Not Indicated Pertinent Medications novolog, Reglan Pertinent Labs (09/24) BUN 139, Cr 3.2, Ca 7.7 , Phosphorus 6.6, Albumin 3.1 Nutritional Hx/Data Height 1.6 m Height (Calculated Centimeters) 160.0 Current Weight (lbs) 104.326 kg Weight (Calculated Kilograms) 104.3 Weight (Calculated Grams) 813965.2 [place] Body Weight 115 % [place] Body Weight 200 Body Mass Index (BMI) 40.7 Recent Weight Change Yes Weight Status Morbidly Obese GI Symptoms GI Symptoms Vomitting Last BM 09/24 Difficult in: None Food Allergies No Cultural/Ethnic/Alevism Belief None indicated Usual diet at home Unknown Skin Integrity/Comment: Dinh Nagy, Intact Estimated Nutritional Goals BEE in Kcals: Adj wt of IBW Calories/Kcals/Kg 25-30 kcal/kg using ADj BW 65. 3kg Kcals Calculated ~9490-0462 kcal/day Protein: Adj wt of IBW Protein g/k-1.2 gm/kg using Adj BW Protein Calculated 65-80 gm/day Fluid: ml ~7722-1731 ml/day (1 ml/kcal) Nutritional Problem 2. Problem Problem Inadequate oral intake related to Etiology clear liquid diet due to GI bleed aeb Signs/Symptoms: current diet/intake meeting < 25% of estimated nutrient needs. 1. Problem Problem Altered nutrition related lab values related to Etiology electrolyte imbalance aeb Signs/Symptoms: Ca 7.7, Phosphorus 6.6 Intervention/Recommendation Comments 1. When medically appropriate, progress diet to Renal diet ( low in phosphorus) as tolerated by patient. 2. MD to consider phosphorus binder with meals. 3. Will provide Renal diet education when appropriate. Expected Outcomes/Goals Expected Outcomes/Goals Oral intake to meet >75% of nutrient needs, weight stable or trend toward ideal body weight, nutrition related labs normalize F/U in 3-5 days as MR (09/27- )
[2017-09-28] MEDS: Ciprofloxacin 400mg Premix PB 400 MG/200 ML BAG IV SCH (15:00)
[2017-09-29 05:57] LABS: % BASOPHILS 0.5 % (0.0-2.0); % LYMPHOCYTES 18.4 % (20.0-50.0); % MONOCYTES 7.3 % (2.0-10.0); % NEUTROPHILS 68.8 % (40.0-80.0); BASOPHILE ABSOLUTE 0.1 Th/cumm (0-0.2); EOSINOPHILE ABSOLUTE 0.6 Th/cmm (0.1-0.4); HEMATOCRIT 26.8 % (41.0-60); LYMPHOCYTE ABSOLUTE 2.2 Th/cmm (1.5-3.0); MEAN CELL VOLUME 85.4 fl (81-100); MEAN CORPUSCULAR HEMOGLOBIN 28.8 pg (27.0-31.0); MEAN CORPUSCULAR HGB CONC 33.8 pg (28.0-36.0); MEAN PLATELET VOLUME 7.8 fl; MONOCYTE ABSOLUTE 0.9 Th/cmm (0.3-1.0); NEUTROPHILE ABSOLUTE 7.9 Th/cmm (1.8-8.0); PLATELET COUNT 210 Th/cmm (150-400); RED BLOOD COUNT 3.13 Mil/cmm (3.80-5.20); WHITE BLOOD COUNT 11.7 Th/cmm (4.8-10.8)
[2017-09-29 06:23] LABS: ANION GAP 8.5 (7.0-16.0); BUN - UREA NITROGEN 16 mg/dL (7-25); CALCIUM SERUM 8.2 mg/dL (8.6-10.3); CARBON DIOXIDE 26.1 mEq/L (21.0-31.0); CHLORIDE 108 mEq/L (98-107); CREATININE - SERUM 0.7 mg/dL (0.6-1.2); GLUCOSE 93 mg/dL (70-105); MAGNESIUM 1.6 mg/dL (1.9-2.7); POTASSIUM SERUM 3.6 mEq/L (3.5-5.1); SODIUM SERUM 139 mEq/L (136-145)
--- NOTE | 2017-09-29 08:16 | GI Progress Note ---
Subjective - Review of Systems Service Date: 09/29/17 Subjective: Doing well, no further bleeding Objective - Results Result Diagrams: 09/29/17 05:15 09/29/17 05:15 Recent Labs: Laboratory Last Values WBC 11.7 Th/cmm (4.8-10.8) H 09/29/17 05:15 RBC 3.13 Mil/cmm (3.80-5.20) L 09/29/17 05:15 Hgb 9.0 gm/dL (12-16) L 09/29/17 05:15 Hct 26.8 % (41.0-60) L 09/29/17 05:15 MCV 85.4 fl (81-100) 09/29/17 05:15 MCH 28.8 pg (27.0-31.0) 09/29/17 05:15 MCHC Differential 33.8 pg (28.0-36.0) 09/29/17 05:15 RDW 16.0 % (11.5-20.0) 09/29/17 05:15 Plt Count 210 Th/cmm (150-400) 09/29/17 05:15 MPV 7.8 fl 09/29/17 05:15 Add Manual Diff YES 09/26/17 04:15 Neutrophils % 68.8 % (40.0-80.0) 09/29/17 05:15 Band Neutrophils % 2 % (0-10) 09/26/17 04:15 Lymphocytes % 18.4 % (20.0-50.0) L 09/29/17 05:15 Monocytes % 7.3 % (2.0-10.0) 09/29/17 05:15 Eosinophils % 5.0 % (0.0-5.0) 09/29/17 05:15 Basophils % 0.5 % (0.0-2.0) 09/29/17 05:15 Neutrophils (Manual) 80 % (40-80) 09/26/17 04:15 Lymphocytes 16 % (20-50) L 09/26/17 04:15 Monocytes 1 % (2-10) L 09/26/17 04:15 Eosinophils 1 % (0-5) 09/26/17 04:15 Platelet Estimate ADEQUATE (NORMAL) 09/26/17 04:15 Eos Smear Source URINE 09/23/17 18:00 Eos Smear Total Cells NONE SEEN (NONE SEEN) 09/23/17 18:00 PT 11.0 SECONDS (9.5-11.5) 09/26/17 04:15 INR 1.06 (0.5-1.4) 09/26/17 04:15 Sodium 139 mEq/L (136-145) 09/29/17 05:15 Potassium 3.6 mEq/L (3.5-5.1) 09/29/17 05:15 Chloride 108 mEq/L (98-107) H 09/29/17 05:15 Carbon Dioxide 26.1 mEq/L (21.0-31.0) 09/29/17 05:15 Anion Gap 8.5 (7.0-16.0) 09/29/17 05:15 BUN 16 mg/dL (7-25) 09/29/17 05:15 Creatinine 0.7 mg/dL (0.6-1.2) 09/29/17 05:15 Est GFR ( Amer) TNP 09/29/17 05:15 Est GFR (Non-Af Amer) TNP 09/29/17 05:15 BUN/Creatinine Ratio 22.9 09/29/17 05:15 Glucose 93 mg/dL (70-105) 09/29/17 05:15 POC Glucose 92 MG/DL (70 - 105) 09/29/17 07:45 Calcium 8.2 mg/dL (8.6-10.3) L 09/29/17 05:15 Phosphorus 6.6 mg/dL (2.5-5.0) H 09/24/17 04:50 Magnesium 1.6 mg/dL (1.9-2.7) L 09/29/17 05:15 Total Bilirubin 0.2 mg/dL (0.3-1.0) L 09/24/17 04:50 AST 8 U/L (13-39) L 09/24/17 04:50 ALT 3 U/L (7-52) L 09/24/17 04:50 Alkaline Phosphatase 36 U/L (34-104) 09/24/17 04:50 Creatine Kinase 19 U/L (30-223) L 09/23/17 11:45 Troponin I < 0.01 ng/mL (0.01-0.05) L 09/23/17 11:45 B-Natriuretic Peptide 45.4 pg/mL (5.0-100.0) 09/23/17 11:45 Total Protein 5.8 gm/dL (6.0-8.3) L 09/24/17 04:50 Albumin 3.1 gm/dL (3.7-5.3) L 09/24/17 04:50 Globulin 2.7 gm/dL 09/24/17 04:50 Albumin/Globulin Ratio 1.2 (1.0-1.8) 09/24/17 04:50 Triglycerides 150 mg/dL (<150) 09/23/17 11:45 Cholesterol 135 mg/dL (<200) 09/23/17 11:45 LDL Cholesterol Direct 72 mg/dL (75-193) L 09/23/17 11:45 HDL Cholesterol 33 mg/dL (23-92) 09/23/17 11:45 Amylase 53 U/L (29-103) 09/23/17 11:45 Lipase 46 U/L (11-82) 09/25/17 04:30 Urine Source CLEAN C 09/23/17 12:15 Urine Color YELLOW 09/23/17 12:15 Urine Clarity HAZY (CLEAR) 09/23/17 12:15 Urine pH 6.0 (4.6 - 8.0) 09/23/17 12:15 Ur Specific [place] 1.020 (1.005-1.030) 09/23/17 12:15 Urine Protein 30 mg/dL (NEGATIVE) H 09/23/17 12:15 Urine Glucose (UA) 100 mg/dL (NEGATIVE) H 09/23/17 12:15 Urine Ketones NEGATIVE mg/dL (NEGATIVE) 09/23/17 12:15 Urine Blood SMALL (NEGATIVE) H 09/23/17 12:15 Urine Nitrate NEGATIVE (NEGATIVE) 09/23/17 12:15 Urine Bilirubin NEGATIVE (NEGATIVE) 09/23/17 12:15 Urine Urobilinogen 0.2 E.U./dL (0.2 - 1.0) 09/23/17 12:15 Ur Leukocyte Esterase TRACE (NEGATIVE) H 09/23/17 12:15 Urine RBC 2-5 /hpf (0-5) 09/23/17 12:15 Urine WBC 6-10 /hpf (0-5) H 09/23/17 12:15 Ur Epithelial Cells FEW /lpf (FEW) 09/23/17 12:15 Urine Bacteria 1+ /hpf (NONE SEEN) H 09/23/17 12:15 Coarse Granular Casts 0-2 /lpf (NONE SEEN) H 09/23/17 12:15 Urine Yeast MODERATE /hpf (NONE SEEN) H 09/23/17 12:15 Ur Random Sodium 88 mmol/L 09/23/17 18:00 Urine Creatinine 28.5 mg/dl 09/23/17 18:00 Urine Microalbumin 127.2 09/23/17 18:00 Microalb/Creat Ratio 446.3 09/23/17 18:00 Stool Occult Blood NEGATIVE (NEGATIVE) 09/24/17 04:00 Blood Type A POSITIVE 09/26/17 16:15 Antibody Screen NEGATIVE 09/26/17 16:15 Crossmatch See Detail 09/23/17 11:45 - Physical Exam Vitals and I&O: Vital Signs Temp 97.1 F 09/29/17 07:45 Pulse 69 09/29/17 07:45 Resp 18 09/29/17 07:45 BP 130/81 09/29/17 07:45 Pulse Ox 99 09/29/17 07:45 Intake & Output 09/28/17 09/29/17 09/29/17 18:59 06:59 18:59 Intake Total 477.333 300 Balance 477.333 300 Weight (lbs) 103.419 kg Intake: Intake, IV Amount 477.333 Fluconazole 100mg/50mL 50 100 mg In 50 ml @ 50 mls/ hr IV Q24HR [facility] Rx#: [id number] Magnesium Sulfate 3 gm In 106 Sodium Chloride 0.9% 100 ml @ 35 mls/hr IV ONCE ONE Rx#:[id number] Sodium Chloride 0.9% 1, 321.333 000 ml @ 40 mls/hr IV . Q24H [facility] Rx#:[id number] Oral 300 Other: # Voids 3 # Bowel Movements 0 Stool Characteristics Liquid Green Weight Source Bedscale Active Medications: Current Medications Acetaminophen (Tylenol) 650 mg PO Q4HR PRN PRN Reason: Pain or Fever >101 Stop: 11/27/17 09:38 Albuterol Sulfate (Albuterol 2.5mg/3ml Neb Ud) 2.5 mg HHN Q6HRT PRN PRN Reason: ASTHMA Stop: 11/26/17 10:04 Amlodipine Besylate (Norvasc) 5 mg PO DAILY [facility] Stop: 11/26/17 10:59 Last Admin: 09/28/17 08:39 Dose: 5 mg Cholecalciferol (Vitamin D3) 1,000 iu PO DAILY [facility] Stop: 11/26/17 10:14 Last Admin: 09/28/17 08:38 Dose: 1,000 iu Diphenhydramine HCl (Benadryl) 25 mg PO Q4HR PRN PRN Reason: Allergy Symptoms Stop: 11/27/17 15:37 Last Admin: 09/28/17 16:00 Dose: 25 mg Docusate Sodium (Colace) 250 mg PO DAILY [facility] Stop: 11/24/17 15:14 Last Admin: 09/28/17 08:56 Dose: Not Given Ferrous Sulfate (Iron) 325 mg PO DAILY [facility] Stop: 11/26/17 10:14 Last Admin: 09/28/17 08:37 Dose: 325 mg Hydrochlorothiazide (Hctz) 25 mg PO DAILY [facility] Stop: 11/26/17 10:14 Last Admin: 09/28/17 08:38 Dose: 25 mg Ciprofloxacin (Cipro 400mg Premix Pb) 400 mg in 200 mls @ 200 mls/hr IV Q24H [facility] Stop: 11/22/17 14:59 Last Admin: 09/28/17 15:00 Dose: 200 mls/hr Fluconazole (Diflucan) 100 mg in 50 mls @ 50 mls/hr IV Q24HR [facility] Stop: 11/23/17 13:29 Last Infusion: 09/28/17 14:06 Dose: Infused Insulin Aspart (Novolog Insulin Sliding Scale) 0 units SUBQ ACHS [facility]; Protocol Stop: 11/22/17 20:59 Last Admin: 09/28/17 21:36 Dose: Not Given Lorazepam (Ativan) 0.5 mg PO Q8H PRN; Protocol PRN Reason: Anxiety Stop: 11/26/17 10:04 Last Admin: 09/27/17 22:20 Dose: 0.5 mg Meclizine HCl (Antivert) 25 mg PO Q8H PRN PRN Reason: Dizziness Stop: 11/27/17 15:59 Last Admin: 09/28/17 21:27 Dose: 25 mg Metoclopramide HCl (Reglan) 10 mg IVP Q8HR PRN PRN Reason: nausea/vomiting Stop: 11/22/17 13:39 Last Admin: 09/28/17 21:27 Dose: 10 mg Metoprolol Succinate (Toprol Xl) 50 mg PO BID [facility] Stop: 11/27/17 09:44 Last Admin: 09/28/17 17:47 Dose: 50 mg Miscellaneous (Clinical Monitoring) 1 ea MC PRN PRN PRN Reason: RENAL DOSE Stop: 11/22/17 14:54 Pantoprazole Sodium (Protonix) 40 mg IVP Q12HR [facility] Stop: 11/26/17 08:59 Last Admin: 09/28/17 21:38 Dose: 40 mg Potassium Chloride (Klor-Con) 20 meq PO DAILY [facility] Stop: 11/27/17 09:29 Last Admin: 09/28/17 10:03 Dose: 20 meq Sertraline HCl (Zoloft) 150 mg PO DAILY [facility]; Protocol Stop: 11/27/17 08:59 Simvastatin (Zocor) 40 mg PO HS [facility]; Protocol Stop: 11/26/17 20:59 Last Admin: 09/28/17 21:38 Dose: 40 mg Sodium Bicarbonate (Sodium Bicarbonate) 650 mg PO BID [facility]; Protocol Stop: 11/24/17 16:59 Last Admin: 09/28/17 17:47 Dose: 650 mg General: Alert, Oriented x3 HEENT: Atraumatic Neck: Supple Cardiovascular: Regular rate Lungs: Clear to auscultation Abdomen: Bowel sounds, Soft, no Tender, no Hepatomegaly, no Splenomegaly, no Distended, no Rebound, no Mass, no Guarding Extremities: no Edema Neurological: Sensation intact Skin: no Rash Psych/Mental Status: Mental status NL - Procedures Procedures: Procedures Procedure Code Date EXCISION OF STOMACH, ENDO [id number] 09/23/17 EXCISION OF STOMACH, ENDO, DIAGN [id number] 09/23/17 TRANSFUSE NONAUT RED BLOOD CELLS IN PERIPH VEIN, PERC [id number] 09/23/17 Assessment/Plan - Problem List Patient Problems: All Active Problems COFFEE GROUND EMESIS WITH TARRY STOOL (Acute) - Assessment Assessment: # Melena # Anemia # NSAID use Upper GI bleed, likely PUD from naproxen use. EGD on 09/26 showed gastric ulcers, and gastric polyps. Biopsies taken, and 1cm gastric polyp was removed and clipped. Path shows hyperplastic polyps and no H pylori. Plan: - change ppi to bid dosing. Suggest she take this for 6 weeks, then transition to daily - advance to soft diet - cycle cbc, stable - avoid NSAIDs going forward GI to see intermittently, please call with any questions
[2017-09-29] MEDS ORDERED: Lidocaine 2% Gel 5 mL TP ONE (08:19)
[2017-09-29] MEDS ORDERED: Sodium Chloride 0.9% 1,000 ML IV ONE (08:19)
[2017-09-29] MEDS: INSULIN ASPART SLIDING SCALE 100 UNITS/ML UNIT SUBQ SCH ×2 (08:41→11:59)
[2017-09-29] MEDS: Potassium Chloride 20 mEq ER Tab PO SCH (08:49)
[2017-09-29] MEDS: Ferrous Sulfate 325 MG TAB PO SCH ×3 (08:51→14:09)
[2017-09-29] MEDS ORDERED: Mag Sulfate 2gm/50mL Premix 2 GM/50 ML BAG IV ONE (09:26)
[2017-09-29] MEDS ORDERED: Pantoprazole 40 mg EC Tab PO SCH (10:00)
--- NOTE | 2017-09-29 14:10 | General Progress Note ---
Subjective - Review of Systems Service Date: 09/29/17 Subjective: tolerating meals, no N/V Objective - Results Result Diagrams: 09/29/17 05:15 09/29/17 05:15 Recent Labs: Laboratory Last Values WBC 11.7 Th/cmm (4.8-10.8) H 09/29/17 05:15 RBC 3.13 Mil/cmm (3.80-5.20) L 09/29/17 05:15 Hgb 9.0 gm/dL (12-16) L 09/29/17 05:15 Hct 26.8 % (41.0-60) L 09/29/17 05:15 MCV 85.4 fl (81-100) 09/29/17 05:15 MCH 28.8 pg (27.0-31.0) 09/29/17 05:15 MCHC Differential 33.8 pg (28.0-36.0) 09/29/17 05:15 RDW 16.0 % (11.5-20.0) 09/29/17 05:15 Plt Count 210 Th/cmm (150-400) 09/29/17 05:15 MPV 7.8 fl 09/29/17 05:15 Add Manual Diff YES 09/26/17 04:15 Neutrophils % 68.8 % (40.0-80.0) 09/29/17 05:15 Band Neutrophils % 2 % (0-10) 09/26/17 04:15 Lymphocytes % 18.4 % (20.0-50.0) L 09/29/17 05:15 Monocytes % 7.3 % (2.0-10.0) 09/29/17 05:15 Eosinophils % 5.0 % (0.0-5.0) 09/29/17 05:15 Basophils % 0.5 % (0.0-2.0) 09/29/17 05:15 Neutrophils (Manual) 80 % (40-80) 09/26/17 04:15 Lymphocytes 16 % (20-50) L 09/26/17 04:15 Monocytes 1 % (2-10) L 09/26/17 04:15 Eosinophils 1 % (0-5) 09/26/17 04:15 Platelet Estimate ADEQUATE (NORMAL) 09/26/17 04:15 Eos Smear Source URINE 09/23/17 18:00 Eos Smear Total Cells NONE SEEN (NONE SEEN) 09/23/17 18:00 PT 11.0 SECONDS (9.5-11.5) 09/26/17 04:15 INR 1.06 (0.5-1.4) 09/26/17 04:15 Sodium 139 mEq/L (136-145) 09/29/17 05:15 Potassium 3.6 mEq/L (3.5-5.1) 09/29/17 05:15 Chloride 108 mEq/L (98-107) H 09/29/17 05:15 Carbon Dioxide 26.1 mEq/L (21.0-31.0) 09/29/17 05:15 Anion Gap 8.5 (7.0-16.0) 09/29/17 05:15 BUN 16 mg/dL (7-25) 09/29/17 05:15 Creatinine 0.7 mg/dL (0.6-1.2) 09/29/17 05:15 Est GFR ( Amer) TNP 09/29/17 05:15 Est GFR (Non-Af Amer) TNP 09/29/17 05:15 BUN/Creatinine Ratio 22.9 09/29/17 05:15 Glucose 93 mg/dL (70-105) 09/29/17 05:15 POC Glucose 97 MG/DL (70 - 105) 09/29/17 11:47 Calcium 8.2 mg/dL (8.6-10.3) L 09/29/17 05:15 Phosphorus 6.6 mg/dL (2.5-5.0) H 09/24/17 04:50 Magnesium 1.6 mg/dL (1.9-2.7) L 09/29/17 05:15 Total Bilirubin 0.2 mg/dL (0.3-1.0) L 09/24/17 04:50 AST 8 U/L (13-39) L 09/24/17 04:50 ALT 3 U/L (7-52) L 09/24/17 04:50 Alkaline Phosphatase 36 U/L (34-104) 09/24/17 04:50 Creatine Kinase 19 U/L (30-223) L 09/23/17 11:45 Troponin I < 0.01 ng/mL (0.01-0.05) L 09/23/17 11:45 B-Natriuretic Peptide 45.4 pg/mL (5.0-100.0) 09/23/17 11:45 Total Protein 5.8 gm/dL (6.0-8.3) L 09/24/17 04:50 Albumin 3.1 gm/dL (3.7-5.3) L 09/24/17 04:50 Globulin 2.7 gm/dL 09/24/17 04:50 Albumin/Globulin Ratio 1.2 (1.0-1.8) 09/24/17 04:50 Triglycerides 150 mg/dL (<150) 09/23/17 11:45 Cholesterol 135 mg/dL (<200) 09/23/17 11:45 LDL Cholesterol Direct 72 mg/dL (75-193) L 09/23/17 11:45 HDL Cholesterol 33 mg/dL (23-92) 09/23/17 11:45 Amylase 53 U/L (29-103) 09/23/17 11:45 Lipase 46 U/L (11-82) 09/25/17 04:30 Urine Source CLEAN C 09/23/17 12:15 Urine Color YELLOW 09/23/17 12:15 Urine Clarity HAZY (CLEAR) 09/23/17 12:15 Urine pH 6.0 (4.6 - 8.0) 09/23/17 12:15 Ur Specific [place] 1.020 (1.005-1.030) 09/23/17 12:15 Urine Protein 30 mg/dL (NEGATIVE) H 09/23/17 12:15 Urine Glucose (UA) 100 mg/dL (NEGATIVE) H 09/23/17 12:15 Urine Ketones NEGATIVE mg/dL (NEGATIVE) 09/23/17 12:15 Urine Blood SMALL (NEGATIVE) H 09/23/17 12:15 Urine Nitrate NEGATIVE (NEGATIVE) 09/23/17 12:15 Urine Bilirubin NEGATIVE (NEGATIVE) 09/23/17 12:15 Urine Urobilinogen 0.2 E.U./dL (0.2 - 1.0) 09/23/17 12:15 Ur Leukocyte Esterase TRACE (NEGATIVE) H 09/23/17 12:15 Urine RBC 2-5 /hpf (0-5) 09/23/17 12:15 Urine WBC 6-10 /hpf (0-5) H 09/23/17 12:15 Ur Epithelial Cells FEW /lpf (FEW) 09/23/17 12:15 Urine Bacteria 1+ /hpf (NONE SEEN) H 09/23/17 12:15 Coarse Granular Casts 0-2 /lpf (NONE SEEN) H 09/23/17 12:15 Urine Yeast MODERATE /hpf (NONE SEEN) H 09/23/17 12:15 Ur Random Sodium 88 mmol/L 09/23/17 18:00 Urine Creatinine 28.5 mg/dl 09/23/17 18:00 Urine Microalbumin 127.2 09/23/17 18:00 Microalb/Creat Ratio 446.3 09/23/17 18:00 Stool Occult Blood NEGATIVE (NEGATIVE) 09/24/17 04:00 Blood Type A POSITIVE 09/26/17 16:15 Antibody Screen NEGATIVE 09/26/17 16:15 Crossmatch See Detail 09/23/17 11:45 - Physical Exam Vitals and I&O: Vital Signs Temp 97.5 F 09/29/17 11:44 Pulse 68 09/29/17 11:44 Resp 18 09/29/17 11:44 BP 136/78 09/29/17 11:44 Pulse Ox 99 09/29/17 11:44 Intake & Output 09/28/17 09/29/17 09/29/17 18:59 06:59 18:59 Intake Total 477.333 300 Balance 477.333 300 Weight (lbs) 103.419 kg 103.419 kg Intake: Intake, IV Amount 477.333 Fluconazole 100mg/50mL 50 100 mg In 50 ml @ 50 mls/ hr IV Q24HR [facility] Rx#: [id number] Magnesium Sulfate 3 gm In 106 Sodium Chloride 0.9% 100 ml @ 35 mls/hr IV ONCE ONE Rx#:[id number] Sodium Chloride 0.9% 1, 321.333 000 ml @ 40 mls/hr IV . Q24H [facility] Rx#:[id number] Oral 300 Other: # Voids 3 # Bowel Movements 0 Stool Characteristics Liquid Green Weight Source Bedscale Bedscale Active Medications: Current Medications Acetaminophen (Tylenol) 650 mg PO Q4HR PRN PRN Reason: Pain or Fever >101 Stop: 11/27/17 09:38 Last Admin: 09/29/17 09:05 Dose: 650 mg Albuterol Sulfate (Albuterol 2.5mg/3ml Neb Ud) 2.5 mg HHN Q6HRT PRN PRN Reason: ASTHMA Stop: 11/26/17 10:04 Amlodipine Besylate (Norvasc) 5 mg PO DAILY [facility] Stop: 11/26/17 10:59 Last Admin: 09/29/17 08:57 Dose: 5 mg Cholecalciferol (Vitamin D3) 1,000 iu PO DAILY [facility] Stop: 11/26/17 10:14 Last Admin: 09/29/17 08:52 Dose: 1,000 iu Diphenhydramine HCl (Benadryl) 25 mg PO Q4HR PRN PRN Reason: Allergy Symptoms Stop: 11/27/17 15:37 Last Admin: 09/28/17 16:00 Dose: 25 mg Docusate Sodium (Colace) 250 mg PO DAILY [facility] Stop: 11/24/17 15:14 Last Admin: 09/29/17 08:52 Dose: 250 mg Ferrous Sulfate (Iron) 325 mg PO TID [facility] Stop: 11/28/17 09:59 Last Admin: 09/29/17 11:24 Dose: 325 mg Fluconazole (Diflucan) 100 mg PO DAILY [facility] Stop: 12/04/17 10:14 Last Admin: 09/29/17 11:59 Dose: 100 mg Hydrochlorothiazide (Hctz) 25 mg PO DAILY [facility] Stop: 11/26/17 10:14 Last Admin: 09/29/17 08:51 Dose: 25 mg Insulin Aspart (Novolog Insulin Sliding Scale) 0 units SUBQ ACHS [facility]; Protocol Stop: 11/22/17 20:59 Last Admin: 09/29/17 11:59 Dose: Not Given Lorazepam (Ativan) 0.5 mg PO Q8H PRN; Protocol PRN Reason: Anxiety Stop: 11/26/17 10:04 Last Admin: 09/27/17 22:20 Dose: 0.5 mg Meclizine HCl (Antivert) 25 mg PO Q8H PRN PRN Reason: Dizziness Stop: 11/27/17 15:59 Last Admin: 09/28/17 21:27 Dose: 25 mg Metoclopramide HCl (Reglan) 10 mg IVP Q8HR PRN PRN Reason: nausea/vomiting Stop: 11/22/17 13:39 Last Admin: 09/28/17 21:27 Dose: 10 mg Metoprolol Succinate (Toprol Xl) 50 mg PO BID [facility] Stop: 11/27/17 09:44 Last Admin: 09/29/17 08:51 Dose: 50 mg Miscellaneous (Clinical Monitoring) 1 ea MC PRN PRN PRN Reason: RENAL DOSE Stop: 11/22/17 14:54 Pantoprazole Sodium (Protonix) 40 mg PO BID [facility] Stop: 11/28/17 09:59 Last Admin: 09/29/17 11:27 Dose: Not Given Potassium Chloride (Klor-Con) 20 meq PO DAILY [facility] Stop: 11/27/17 09:29 Last Admin: 09/29/17 08:49 Dose: 20 meq Sertraline HCl (Zoloft) 150 mg PO DAILY [facility]; Protocol Stop: 11/27/17 08:59 Last Admin: 09/29/17 08:49 Dose: 150 mg Simvastatin (Zocor) 40 mg PO HS [facility]; Protocol Stop: 11/26/17 20:59 Last Admin: 09/28/17 21:38 Dose: 40 mg Sodium Bicarbonate (Sodium Bicarbonate) 650 mg PO BID [facility]; Protocol Stop: 11/24/17 16:59 Last Admin: 09/29/17 08:48 Dose: 650 mg General: Alert, Oriented x3 HEENT: Atraumatic Neck: Supple Cardiovascular: Regular rate Lungs: Clear to auscultation Abdomen: Bowel sounds, Soft, no Tender, no Hepatomegaly, no Splenomegaly, no Distended, no Rebound, no Mass, no Guarding Extremities: no Edema Neurological: Sensation intact Skin: no Rash Psych/Mental Status: Mental status NL - Procedures Procedures: Procedures Procedure Code Date EXCISION OF STOMACH, ENDO [id number] 09/23/17 EXCISION OF STOMACH, ENDO, DIAGN [id number] 09/23/17 TRANSFUSE NONAUT RED BLOOD CELLS IN PERIPH VEIN, PERC 56250Q3 09/23/17 Assessment/Plan - Problem List Patient Problems: All Active Problems COFFEE GROUND EMESIS WITH TARRY STOOL (Acute) - Assessment Assessment: SIVA GI Bleed Ess Htn Dyslipidemia GERD Morbid Obesity - Plan Plan: Lab - Result Diagrams 09/25/17 04:30 09/25/17 04:30 Current Medications Ciprofloxacin (Cipro 400mg Premix Pb) 400 mg in 200 mls @ 200 mls/hr IV Q24H [facility] Stop: 11/22/17 14:59 Last Admin: 09/24/17 15:35 Dose: 200 mls/hr Pantoprazole Sodium 80 mg/ (Sodium Chloride) 100 mls @ 10 mls/hr IV Q10H [facility] Stop: 11/22/17 17:29 Last Admin: 09/25/17 11:08 Dose: 10 mls/hr Norepinephrine Bitartrate 4 mg (/ Dextrose) 254 mls @ 15.24 mls/hr IV TITR PRN ; Protocol PRN Reason: BP MAINTENANCE (PER PROTOCOL) Stop: 11/23/17 02:23 Last Titration: 09/24/17 18:27 Dose: 0 mcg/min, 0 mls/hr Fluconazole (Diflucan) 100 mg in 50 mls @ 50 mls/hr IV Q24HR [facility] Stop: 11/23/17 13:29 Last Admin: 09/25/17 13:45 Dose: 100 mls/hr Sodium Chloride (Nacl 0.9%) 1,000 mls @ 75 mls/hr IV .[id number] [facility] Stop: 11/24/17 14:59 Insulin Aspart (Novolog Insulin Sliding Scale) 0 units SUBQ ACHS [facility]; Protocol Stop: 11/22/17 20:59 Last Admin: 09/25/17 13:48 Dose: Not Given Metoclopramide HCl (Reglan) 10 mg IVP Q8HR PRN PRN Reason: nausea/vomiting Stop: 11/22/17 13:39 Miscellaneous (Clinical Monitoring) 1 ea MC PRN PRN PRN Reason: RENAL DOSE Stop: 11/22/17 14:54 Potassium Chloride (Klor-Con) 20 meq PO X1 ONE Stop: 09/25/17 15:00 Sodium Bicarbonate (Sodium Bicarbonate) 650 mg PO BID [facility]; Protocol Stop: 11/24/17 16:59 Lab - Result Diagrams 09/29/17 05:15 09/29/17 05:15 Kidney fnc continues to improve f/u electrolytes, cbc, mg replace K, Mg EGD Gastric Ulcer, Gastritis, Polyp Nutritional Asmnt/Malnutr-PDOC - Dietary Evaluation Malnutrition Findings (Please click <Entered> for more info): Nutritional Asmnt/Malnutrition Start: 09/24/17 10: 10 Text: Status: Complete Freq: Protocol: Document 09/24/17 10:41 [email or web address] (Rec: 09/24/17 11:14 HAIDER [id number]) Nutritional Asmnt/Malnutrition Patient General Information Nutritional Screening Consult Diagnosis Hypotension, GI Bleed, Acute Renal Insufficiency Pertinent Medical Hx/Surgical Hx OSTEOARTHRITIS, DJD, HYPERLIPIDEMIA, VERTIGO, MORBID OBESITY, DEBILITY, RECENT FALL, LEUKOCYTOSIS, UTI , ATAXIA, COPD, GENERALIZED WEAKNESS, ALOC Subjective Information Consult for Diabetic, loss of appetite, lost 20lbs in 3 months. Patient was admitted from an extended Care facility . Was admitted for coffee ground emesis and black tarry stool. Per nursing notes, patient has lost ~20lbs over the past 3 months and has had a poor appetite >1 week. Patient asleep in bed at time of visit. Current Diet Order/ Nutrition Support clear liquid Patient / S.O Not Indicated Pertinent Medications novolog, Reglan Pertinent Labs (09/24) BUN 139, Cr 3.2, Ca 7.7 , Phosphorus 6.6, Albumin 3.1 Nutritional Hx/Data Height 1.6 m Height (Calculated Centimeters) 160.0 Current Weight (lbs) 104.326 kg Weight (Calculated Kilograms) 104.3 Weight (Calculated Grams) 350705.2 [place] Body Weight 115 % [place] Body Weight 200 Body Mass Index (BMI) 40.7 Recent Weight Change Yes Weight Status Morbidly Obese GI Symptoms GI Symptoms Vomitting Last BM 09/24 Difficult in: None Food Allergies No Cultural/Ethnic/Judaism Belief None indicated Usual diet at home Unknown Skin Integrity/Comment: Dinh 15, Intact Estimated Nutritional Goals BEE in Kcals: Adj wt of IBW Calories/Kcals/Kg 25-30 kcal/kg using ADj BW 65. 3kg Kcals Calculated ~1046-2083 kcal/day Protein: Adj wt of IBW Protein g/k-1.2 gm/kg using Adj BW Protein Calculated 65-80 gm/day Fluid: ml ~9375-9900 ml/day (1 ml/kcal) Nutritional Problem 2. Problem Problem Inadequate oral intake related to Etiology clear liquid diet due to GI bleed aeb Signs/Symptoms: current diet/intake meeting < 25% of estimated nutrient needs. 1. Problem Problem Altered nutrition related lab values related to Etiology electrolyte imbalance aeb Signs/Symptoms: Ca 7.7, Phosphorus 6.6 Intervention/Recommendation Comments 1. When medically appropriate, progress diet to Renal diet ( low in phosphorus) as tolerated by patient. 2. MD to consider phosphorus binder with meals. 3. Will provide Renal diet education when appropriate. Expected Outcomes/Goals Expected Outcomes/Goals Oral intake to meet >75% of nutrient needs, weight stable or trend toward ideal body weight, nutrition related labs normalize F/U in 3-5 days as MR (09/27- )
--- NOTE | 2017-09-29 20:39 | Discharge Summary ---
DATE OF DISCHARGE: 09/29/2017 ADMITTING DIAGNOSES: 1. Symptomatic anemia. 2. Gastrointestinal bleed, likely upper. 3. Rectal bleeding. 4. Acute kidney injury. 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 DISCHARGE DIAGNOSES: 1. Status post upper gastrointestinal bleed, likely secondary to chronic NSAID use. 2. Symptomatic anemia, resolved. 3. Gastritis/peptic ulcer disease. 4. Acute renal insufficiency, resolved. 5. Yeast urinary tract infection. 6. Mild leukocytosis. 7. Mild electrolyte imbalance. CONSULTANTS: Dr. Jonny LOPEZ and Dr. Guthrie, Nephrology. MAJOR PROCEDURES: 1. Renal ultrasound done on 09/23/2017 showed bilateral renal cysts, no visualization of urinary bladder. 2. On 09/26/2017, she underwent EGD showing; 1. A 6 cm hiatal hernia. 2. Antral ulcers. 3. Gastritis. 4. Pedunculated gastric polyp, status post excision. BRIEF HOSPITAL COURSE: The patient is a 77-year-old lady with history as delineated above who presented to the ED with 1-day history of black tarry stools. She reported some weakness and therefore, she was transferred to the ED where pertinent findings included an H and H of 8.5/24.9, white count of 13.9, potassium of 5.2, BUN of 146 and a creatinine of 3.6. She also was noted to be mildly hypotensive at the ED with an SBP of 88/46. The patient was admitted to the ICU and placed on IV fluids, IV Protonix, and empiric IV antibiotics. She was made n.p.o. and transfused 2 units of PRBC. The patient was seen by GI and Nephrology and underwent the above-mentioned endoscopy without any complications. Her H and H did improve to a level of 9.1/26.6 after 2 units of PRBC; however, by 09/24/2017, it had dropped again to 7.7/22.5. Of note, the patient kept having dark stools after admission, although these were less in quantity and frequency. She received another 1 unit of PRBC on 09/24/2017 with improvement of her H and H after the transfusion. (H and H 8.7/26.1 post-transfusion). The patient also had a UA on admission, which came back for yeast and therefore, she was placed on fluconazole. Since then, she has remained basically stable and was transferred to the ICU a couple days ago. Her medications were resumed by hospital day #3 and she reports no further episodes of black tarry stools. As far as her renal function, after the IV fluids and sodium bicarbonate was implemented her renal function gradually got better. Her latest BUN and creatinine are 16/0.7. DISCHARGE MEDICATIONS: Tylenol 650 q.4 hours p.r.n. for pain, amlodipine 5 every day, vitamin D 1000 units every day, docusate sodium 250 every day, iron sulfate 325 t.i.d., fluconazole 100 mg every day x7 days, hydrochlorothiazide 25 every day, insulin sliding scale per protocol, meclizine 25 q. 8 p.r.n. for dizziness, metoprolol 50 b.i.d., Protonix 40 mg p.o. q. 12 h. b.i.d., Zocor 40 mg at bedtime, Zoloft 150 every day. CONDITION ON DISCHARGE: Stable. DISPOSITION: Discharge back to [facility]. JOB# [id number]
== END 2017-09-29 15:55 | DRG 378 ==
LOC: ER 11:23 → ICU 14:29 → TELE 09-28 16:27
PROVIDERS: ADMIT Internal Medicine; ATTEND Internal Medicine
PROC: 30233N1 Transfusion of Nonautologous Red Blood Cells into Peripheral Vein, Percutaneous Approach (ICD-10-PCS; principal; 2017-09-24)
PROC: 0DB68ZX Excision of Stomach, Via Natural or Artificial Opening Endoscopic, Diagnostic (ICD-10-PCS; 2017-09-26)
PROC: 0DB68ZZ Excision of Stomach, Via Natural or Artificial Opening Endoscopic (ICD-10-PCS; 2017-09-26)
DX: K92.2 Gastrointestinal hemorrhage, unspecified (principal); N17.9 Acute kidney failure, unspecified; N39.0 Urinary tract infection, site not specified; E87.1 Hypo-osmolality and hyponatremia; Z68.41 Body mass index [BMI] 40.0-44.9, adult; I10 Essential (primary) hypertension; E78.5 Hyperlipidemia, unspecified; E66.01 Morbid (severe) obesity due to excess calories; K21.9 Gastro-esophageal reflux disease without esophagitis; D64.9 Anemia, unspecified; K44.9 Diaphragmatic hernia without obstruction or gangrene; N28.9 Disorder of kidney and ureter, unspecified; E11.9 Type 2 diabetes mellitus without complications; E87.5 Hyperkalemia; E86.0 Dehydration; M16.0 Bilateral primary osteoarthritis of hip; T39.395A Adverse effect of other nonsteroidal anti-inflammatory drugs [NSAID], initial encounter; Y92.89 Other specified places as the place of occurrence of the external cause; K31.7 Polyp of stomach and duodenum; Z88.5 Allergy status to narcotic agent; Z88.0 Allergy status to penicillin; Z88.2 Allergy status to sulfonamides; Z83.3 Family history of diabetes mellitus; Z82.49 Family history of ischemic heart disease and other diseases of the circulatory system; Z88.8 Allergy status to other drugs, medicaments and biological substances
CPT/HCPCS: 36415-UA; 71045-TC; 76770-TC; 80048-TC; 80053-TC; 80061-TC; 81001-TC; 81015-TC; 82043-90; 82150-TC; 82270-TC; 82550-TC; 82570-TC; 82948-90; 83690-TC; 83735-TC; 83880-TC; 84100-TC; 84300-TC; 84484-TC; 85007-TC; 85014-TC; 85018-TC; 85025-TC; 85610-TC; 86850-TC; 86900-TC; 86901-TC; 86922-TC; 87086-90; 88305-90; 88312-90; 93005; 96375; 97530; C9113; J0744; J1815; J1956; J2001; J2704; J2765; J3475; J7030; J7040; P9016; X3904; X6452; Z7610

== ENCOUNTER 2017-11-10 18:14 | Inpatient (IN) | payer MEDICARE, MEDICAID ==
--- NOTE | 2017-11-10 18:31 | ED Physician Chart ---
ED Chief Complaint/HPI - Patient Information Date Seen:: 11/10/17 Time Seen:: 18:15 Chief Complaint:: agitation History of Present Illness:: At her [facility] patient was apparently banging on the window and not cooperative with her care. Allergies:: Allergies Allergy/AdvReac Type Severity Reaction Status Date / Time codeine Allergy Verified 09/13/17 17:02 iodine Allergy Verified 09/23/17 11:34 ondansetron Allergy Verified 09/13/17 17:00 [From Zofran (as hydrochloride)] Penicillins [PCN] Allergy Verified 09/13/17 17:00 Sulfa (Sulfonamide Allergy Verified 09/13/17 17:01 Antibiotics) tramadol Allergy Verified 09/13/17 17:01 Historian:: Patient, EMS Review:: Transfer documents Reviewed ED Review of Systems - Review of Systems General/Constitutional: No fever, No chills, No weight loss, No weakness, No diaphoresis, No edema, No loss of appetite Skin: No skin lesions, No rash, No bruising Head: No headache, No light-headedness Eyes: No loss of vision, No pain, No diplopia ENT: No earache, No nasal drainage, No sore throat, No tinnitus Neck: No neck pain, No swelling, No thyromegaly, No stiffness, No mass noted Cardio Vascular: No chest pain, No palpitations, No PND, No orthopnea, No edema Pulmonary: No SOB, No cough, No sputum, No wheezing GI: No nausea, No vomiting, No diarrhea, No pain, No melena, No hematochezia, No constipation, No hematemesis G/U: No dysuria, No frequency, No hematuria Musculoskeletal: No bone or joint pain, No back pain, No muscle pain Endocrine: No polyuria, No polydipsia Psychiatric: Prior psych history Hematopoietic: No bruising, No lymphadenopathy Allergic/Immuno: No urticaria, No angioedema Neurological: No syncope, No focal symptoms, No weakness, No paresthesia, No headache, No seizure, No dizziness, No confusion, No vertigo ED Past Medical History - Past Medical History Past Medical History: CAD, Other (atherosclerotic heart disease; anxiety; depression; status post UTI; status post GI bleeding; chronic left hip pain) Family History: Other Social History: Non Smoker, No Alcohol Surgical History: Appendectomy, Cholecystectomy, Hysterectomy Psychiatricy History: Depression Medication: Reviewed Family Medical History - Family Member Mother History Unknown: Yes ED Physical Exam - Physical Examination Other Gen/Cons comments:: Patient is alert and oriented to the correct month and year. Head: Atraumatic Eyes: Lids, conjuctiva normal, PERRL Skin: Nl inspection, No rash, No skin lesions, No ecchymosis ENMT: External ears, nose nl, Nasal exam nl Other ENMT comments:: No upper teeth Neck: No nuchal rigidity Respiratory: Nl effort/Exclusion, Clear to Auscultation Cardio Vascular: RRR, No murmur, gallop, rubs, NL S1 S2 GI: No tenderness/rebounding/guarding, No organomegaly, No hernia, Normal BS's, Nondistended, No mass/bruits, No McBurney tenderness Extremities: No edema Other Extremities comments:: [id number] left hip causes slight left groin pain Neuro/Psych: No focal deficits ED Labs/Radiology/EKG Results - Lab Results Results: Laboratory Results - last 24 hr 11/10/17 11/10/17 11/10/17 18:25 18:25 18:35 WBC 8.9 RBC 4.33 Hgb 12.1 Hct 36.3 L MCV 83.8 MCH 27.9 MCHC Differential 33.3 RDW 14.6 Plt Count 372 MPV 8.0 Neutrophils % 65.9 Lymphocytes % 24.6 Monocytes % 7.2 Eosinophils % 1.6 Basophils % 0.7 Sodium Potassium Chloride Carbon Dioxide Anion Gap BUN Creatinine Est GFR ( Amer) Est GFR (Non-Af Amer) BUN/Creatinine Ratio Glucose Calcium Total Bilirubin AST ALT Alkaline Phosphatase Total Protein Albumin Globulin Albumin/Globulin Ratio Triglycerides Cholesterol LDL Cholesterol Direct HDL Cholesterol Urine Source CLEAN C Urine Color YELLOW Urine Clarity SLIGHT CLOUDY H Urine pH 5.5 Ur Specific [place] 1.020 Urine Protein NEGATIVE Urine Glucose (UA) NEGATIVE Urine Ketones NEGATIVE Urine Blood SMALL H Urine Nitrate NEGATIVE Urine Bilirubin NEGATIVE Urine Urobilinogen 0.2 Ur Leukocyte Esterase TRACE H Urine RBC 2-5 Urine WBC 6-10 H Ur Epithelial Cells F Uric Acid Crystals FEW Urine Bacteria N Urine Mucus FEW Salicylates Urine Opiates Screen NEGATIVE Urine Methadone Screen NEGATIVE Acetaminophen Ur Barbiturates Screen NEGATIVE Ur Tricyclics Screen NEGATIVE Ur Phencyclidine Scrn NEGATIVE Amphetamines Screen NEGATIVE U Methamphetamines Scrn NEGATIVE U Benzodiazepines Scrn NEGATIVE U Cocaine Metab Screen NEGATIVE U Cannabinoids Screen NEGATIVE Ethyl Alcohol 11/10/17 18:35 WBC RBC Hgb Hct MCV MCH MCHC Differential RDW Plt Count MPV Neutrophils % Lymphocytes % Monocytes % Eosinophils % Basophils % Sodium 135 L Potassium 4.1 Chloride 104 Carbon Dioxide 23.6 Anion Gap 11.5 BUN 47 H Creatinine 1.1 Est GFR ( Amer) TNP Est GFR (Non-Af Amer) TNP BUN/Creatinine Ratio 42.7 Glucose 110 H Calcium 9.4 Total Bilirubin 0.2 L AST 21 ALT 22 Alkaline Phosphatase 61 Total Protein 7.2 Albumin 3.6 L Globulin 3.6 Albumin/Globulin Ratio 1.0 Triglycerides 163 H Cholesterol 154 LDL Cholesterol Direct 87 HDL Cholesterol 32 Urine Source Urine Color Urine Clarity Urine pH Ur Specific [place] Urine Protein Urine Glucose (UA) Urine Ketones Urine Blood Urine Nitrate Urine Bilirubin Urine Urobilinogen Ur Leukocyte Esterase Urine RBC Urine WBC Ur Epithelial Cells Uric Acid Crystals Urine Bacteria Urine Mucus Salicylates < 25.0 L Urine Opiates Screen Urine Methadone Screen Acetaminophen < 10.0 L Ur Barbiturates Screen Ur Tricyclics Screen Ur Phencyclidine Scrn Amphetamines Screen U Methamphetamines Scrn U Benzodiazepines Scrn U Cocaine Metab Screen U Cannabinoids Screen Ethyl Alcohol < 10 - EKG Interpretations Rate & Rhythm: normal sinus rhythm with a rate of 63 [place]: left axis ED Assessment - Assessment General Assessment: Patient is apparently currently receiving IV antibiotics for urinary tract infection. However her urine shows only 6-10 WBCs so it appears that she will no longer need intravenous antibiotics. ED Septic Shock - . Is Septic Shock (SBP<90, OR Lactate>4 mmol\L) present?: No ED Reassessment (Disposition) - Reassessment Reassessment Condition:: Unchanged - Diagnosis Diagnosis:: Agitation; status post recent urinary tract infection - Patient Disposition Admitted to:: [facility] Admitting Medical Physician:: Leanne Buckley Admitting Psych Physician:: Carolyn Singh Condition at Disposition:: Stable, Improved
[2017-11-10 18:52] LABS: % BASOPHILS 0.7 % (0.0-2.0); % EOSINOPHILS 1.6 % (0.0-5.0); % LYMPHOCYTES 24.6 % (20.0-50.0); % MONOCYTES 7.2 % (2.0-10.0); % NEUTROPHILS 65.9 % (40.0-80.0); BASOPHILE ABSOLUTE 0.1 Th/cumm (0-0.2); EOSINOPHILE ABSOLUTE 0.1 Th/cmm (0.1-0.4); HEMATOCRIT 36.3 % (41.0-60); HEMOGLOBIN 12.1 gm/dL (12-16); LYMPHOCYTE ABSOLUTE 2.2 Th/cmm (1.5-3.0); MEAN CELL VOLUME 83.8 fl (81-100); MEAN CORPUSCULAR HEMOGLOBIN 27.9 pg (27.0-31.0); MEAN CORPUSCULAR HGB CONC 33.3 pg (28.0-36.0); MONOCYTE ABSOLUTE 0.6 Th/cmm (0.3-1.0); NEUTROPHILE ABSOLUTE 5.9 Th/cmm (1.8-8.0); PLATELET COUNT 372 Th/cmm (150-400); RED BLOOD COUNT 4.33 Mil/cmm (3.80-5.20); RED CELL DISTRIBUTION WIDTH 14.6 % (11.5-20.0); WHITE BLOOD COUNT 8.9 Th/cmm (4.8-10.8)
[2017-11-10 19:10] LABS: URINE SOURCE CLEAN C
[2017-11-10 19:12] LABS: ACETAMINOPHEN < 10.0 ug/mL (10.0-30.0); ALBUMIN 3.6 gm/dL (3.7-5.3); ALKALINE PHOSPHATASE 61 U/L (34-104); ANION GAP 11.5 (7.0-16.0); BILIRUBIN,TOTAL 0.2 mg/dL (0.3-1.0); BUN - UREA NITROGEN 47 mg/dL (7-25); CALCIUM SERUM 9.4 mg/dL (8.6-10.3); CARBON DIOXIDE 23.6 mEq/L (21.0-31.0); CHLORIDE 104 mEq/L (98-107); CHOLESTEROL 154 mg/dL (<200); CREATININE - SERUM 1.1 mg/dL (0.6-1.2); GLUCOSE 110 mg/dL (70-105); HDL -HIGH DENSITY LIPOPROTEIN 32 mg/dL (23-92); POTASSIUM SERUM 4.1 mEq/L (3.5-5.1); SALICYLATES (ASPIRIN) < 25.0 mg/L (30.0-100.0); SGOT 21 U/L (13-39); SGPT/ALT 22 U/L (7-52); SODIUM SERUM 135 mEq/L (136-145); TOTAL PROTEIN,SERUM 7.2 gm/dL (6.0-8.3); TRIGLYCERIDES 163 mg/dL (<150)
[2017-11-10 19:16] LABS: URINE BILIRUBIN NEGATIVE (NEGATIVE); URINE BLOOD SMALL (NEGATIVE); URINE GLUCOSE (UA) NEGATIVE (NEGATIVE); URINE KETONE NEGATIVE (NEGATIVE); URINE LEUKOCYTE ESTERASE TRACE (NEGATIVE); URINE MICROSCOPIC INDICATED? YES; URINE NITRATE NEGATIVE (NEGATIVE); URINE PH 5.5 (4.6 - 8.0); URINE PROTEIN NEGATIVE (NEGATIVE); URINE UROBILINOGEN 0.2 E.U./dL (0.2 - 1.0)
[2017-11-10 19:25] LABS: AMPHETAMINE URINE NEGATIVE (NEGATIVE); BARBITURATES URINE NEGATIVE (NEGATIVE); BENZODIAZEPINES QUAL URINE NEGATIVE (NEGATIVE); CANNABINOID THC NEGATIVE (NEGATIVE); COCAINE METABOLITE QUAL URINE NEGATIVE (NEGATIVE); METHADONE URINE NEGATIVE (NEGATIVE); METHAMPHETAMINES QUAL URINE NEGATIVE (NEGATIVE); OPIATES (MORPHINE) QUAL. URINE NEGATIVE (NEGATIVE); PHENCYCLIDINE (PCP) URINE NEGATIVE (NEGATIVE); TRICYCLICS (TCA) QUAL. URINE NEGATIVE (NEGATIVE)
[2017-11-10 19:30] LABS: URINE CLARITY SLIGHT CLOUDY (CLEAR); URINE COLOR YELLOW
[2017-11-10 19:31] LABS: URINE EPITHELIAL CELLS F /lpf (FEW)
[2017-11-10 19:32] LABS: URINE BACTERIA N /hpf (NONE SEEN)
[2017-11-10 23:29] VITALS: BP 103/57
[2017-11-10] MEDS ORDERED: TIGECYCLINE 50 MG IV SCH (23:45)
[2017-11-11] MEDS ORDERED: Maalox 30 mL Cup PO PRN (00:48)
[2017-11-11] MEDS ORDERED: ALBUTEROL SULFATE INH PRN (01:00)
[2017-11-11] MEDS ORDERED: MDI INH PRN (01:00)
[2017-11-11 07:57] LABS: CHOLESTEROL 140 mg/dL (<200); HDL -HIGH DENSITY LIPOPROTEIN 30 mg/dL (23-92); TRIGLYCERIDES 129 mg/dL (<150)
[2017-11-11] MEDS: Pantoprazole 40 mg EC Tab PO SCH ×2 (08:41→18:41)
[2017-11-11] MEDS: Ferrous Sulfate 325 MG TAB PO SCH ×3 (08:41→20:29)
[2017-11-11] MEDS ORDERED: Albuterol Nebulizer 2.5mg/3mL HHN PRN (08:45)
[2017-11-11] MEDS ORDERED: Non-Formulary Item 1 EA (Omeprazole [Omeprazole] 20 MG) PO SCH (09:45)
--- NOTE | 2017-11-11 10:32 | Diagnostic Imaging Report ---
KUB abdominal film HISTORY: Pain There is a nonspecific gas pattern of nondilated bowel. No free intraperitoneal air. Degenerative changes noted through the lumbar spine. Bilateral hip arthroplasties are seen. Small calcifications noted in the lower pelvis consistent with phleboliths. Surgical clips are seen within the right upper quadrant consistent with changes of a prior cholecystectomy. IMPRESSION: 1. Nonspecific bowel gas pattern with no acute radiographic abnormalities 2. Surgical clips within the right upper quadrant consistent with a prior cholecystectomy
--- NOTE | 2017-11-11 11:01 | Consultation ---
DATE OF CONSULTATION: 11/10/2017 INTERNAL MEDICINE CONSULT REFERRING PHYSICIAN: Dr. Singh. REASON FOR CONSULT: Medical management. HISTORY OF PRESENT ILLNESS: The patient is a very pleasant 77-year-old lady who resides at [facility] under the care of Dr. Cardoza with a history of CAD, essential hypertension, previous GI bleed, high cholesterol, diabetes, depression/anxiety, history of unsteady gait, who was brought in secondary to aggressive behavior at the snf facility. The patient states that she has been doing well except for on and off abdominal pain, right-sided since around June when she apparently fell down at the facility and hit the right side of her abdomen against the bed rail. The pain is dull and is not associated with p.o. intake. She also reports occasional nausea with vomiting, but denies any diarrhea and she denies any constipation. The pain does go away with Tylenol as needed. The patient has been admitted to the [facility] for further management and care. The patient apparently was recently diagnosed with a complicated UTI and was on IV antibiotics PAST MEDICAL HISTORY: As noted above. History of previous GI bleed, also chronic left hip pain. Previous UTIs. Vertigo. PAST SURGICAL HISTORY: Status post appendectomy, cholecystectomy and hysterectomy. FAMILY HISTORY: Likely noncontributory to this admission. SOCIAL HISTORY: Denies any tobacco, ETOH or illicit drug usage. She lives at a snf facility. ALLERGIES: Multiple allergies including CODEINE, IODINE, ONDANSETRON, PENICILLINS, SULFONYLUREAS and TRAMADOL. OUTPATIENT MEDICATIONS: Zoloft 150 every day, Tylenol 650 every 4 hours p.r.n. for pain, Ventolin MDI every 6 hours p.r.n. for SOB, amlodipine 5 every day, benazepril 20 every day, vitamin D3 at 1000 international units every day, Colace 250 every day, iron sulfate 325 t.i.d., hydrochlorothiazide 25 every day, Antivert 25 mg every 4 hours p.r.n. for vertigo, metoprolol 50 XL b.i.d., Mylanta p.r.n., omeprazole 20 every day, Protonix 40 b.i.d., Actos 45 every day, potassium chloride 20 mEq daily, simvastatin 40 at bedtime, sodium bicarbonate 650 b.i.d. and she was in Tygacil 50 mg IV every 12 hours. REVIEW OF SYSTEMS: CONSTITUTIONAL: She denies any fever, chills, any recent weight loss. CARDIAC: No chest pain, palpitations. PULMONARY: Denies any cough, shortness of breath. GASTROINTESTINAL: As noted in the HPI. GENITOURINARY: She states that currently she does not have any UTI symptomatology. NEUROLOGIC: No changes in vision. Denies any syncopal episodes, any headaches currently. No vertigo-like symptoms. PHYSICAL EXAMINATION: VITAL SIGNS: Temperature 97.9, pulse 57-63, BP 109/56, respirations 18-20, sats 97% on room air. GENERAL: She is a well-developed, obese female, not in acute distress. HEAD AND NECK: Normocephalic, atraumatic. Pupils are reactive to light. Extraocular movements are intact. Oropharynx is moist and clear. NECK: There is no JVD or LAD. CARDIAC: Regular rate and rhythm with distant sounds. No audible murmurs, gallops or rubs. ABDOMEN: Soft, supple. There is very mild tenderness to palpation on the right mid area with no rebound, no peritoneal signs. There is currently normoactive bowel sounds. EXTREMITIES: On lower extremities, there is no edema. NEUROLOGIC: Grossly intact, nonfocal. LABORATORY DATA: CBC was essentially within normal limits. Chemistry shows a sodium 135, BUN of 47. Glucose 110. LFTs were essentially within normal limits. Albumin 3.6. UA shows a slight cloudiness on the clarity and small blood with trace leukocytes. Urine tox was negative. DIAGNOSTICS: EKG shows sinus rhythm at a rate of 63. ASSESSMENT: 1. Agitation/acute anxiety. 2. Nonspecific abdominal pain. Differential would include diverticulosis versus colitis versus pain secondary to urinary tract infection. 3. Recent history of complicated urinary tract infection. 4. Azotemia/dehydration. 5. History of essential hypertension. 6. History of coronary artery disease. 7. History of diabetes type 2. 8. History of hyperlipidemia. 9. History of unsteady gait. 10. History of previous gastrointestinal bleed. PLAN: The patient has been admitted to the [facility] for management and care. The patient will be kept on her current medications as scheduled. I will withhold the CAILIN inhibitor given her elevated BUN and creatinine and monitor her blood pressure on her other antihypertensives. Given her complaint of abdominal pain I will ask for a KUB and an abdominal ultrasound. I will also put her on stool softener including MiraLax and Dulcolax. JOB# [id number] MTDD
--- NOTE | 2017-11-11 12:25 | History & Physical ---
ADMIT DATE: 11/10/2017 IDENTIFYING INFORMATION: The patient is a 77-year-old female. CHIEF COMPLAINT: "They are trying to get rid of me." HISTORY OF PRESENT ILLNESS: The patient was referred from [facility] [place] as the patient apparently has been agitated. The patient believes they are trying to get rid of her. She reports that she is not sure why she is here, other than they are trying to get rid of her. She reports that she sleeps well. She eats well. She denies any current intent to harm herself or anyone. Denies any auditory or visual hallucinations. Past psychiatric history of depression. The patient has been on Zoloft 50 mg daily. She denies prior suicide attempt. She states she has never hospitalized before; however, that does not match to the fact that she is on Zoloft 50 mg daily. ALLERGIES: THE PATIENT HAS MULTIPLE ALLERGIES TO CODEINE, IODINE, ONDANSETRON, PENICILLIN, SULFONAMIDE, AND TRAMADOL. FAMILY AND SOCIAL HISTORY: The patient reports that she has been long time, since the 1970s. She has 3 children; 1 girl, 2 sons. She has poor relation with her girl. She lives at [facility] [place]. The patient reports no family psychotic disorder. She reports that she has no substance abuse problem. 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 MENTAL STATUS EXAMINATION: The patient is appropriately dressed, not well groomed. Mood is depressed. Affect is sad. Thoughts are clear. Speech is coherent. She believes this is 11/24/2017. She is not sure why she is here. She reports she sleeps well, eats well. She denies any intent to harm herself or anybody. Denies any auditory or visual hallucinations. Currently, she has been agitated at the long term. She denies prior suicide attempts. She seems to have average intelligence, ____ to give information, fund of knowledge, ____ age and date of . Recent memory is poor, does not recognize the situation with her being agitated. She believes she is paranoid. She believes they are trying to get rid of her. Her insight and judgment are impaired. 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 MEDICAL DIAGNOSES: Deferred to as per Dr. Buckley. The patient has a history of gastrointestinal bleed, chronic left hip pain, vertigo, nonspecific abdominal pain, with a history of asthma, hypertension, anemia, and gastroesophageal reflux disease. ASSETS: She wants to get help. Negative poor coping skills. INITIAL TREATMENT PLAN: The patient will be continued on medication. We will adjust the medication as needed. I am not sure if she was taking her medication prior to admission. We will do group therapy, milieu therapy, and individual therapy. ESTIMATED LENGTH OF STAY: 5-7 days. DISCHARGE CRITERIA: Decreasing depression, paranoia after discharge outpatient. [facility]# [id number]
--- NOTE | 2017-11-11 13:23 | Diagnostic Imaging Report ---
Abdominal ultrasound HISTORY: Pain The liver exhibits a homogeneous parenchyma. No focal lesions. The gallbladder is not seen consistent with patient's surgical history. No biliary dilatation. The pancreas cannot be seen due to bowel gas. The right kidney is normal in size. 2 cysts are seen. The largest measures 2.5 cm. The left kidney is normal in size. 2 cysts are noted. The largest measures 1.6 cm. A 6 mm echogenic focus is noted. A small calculus cannot be excluded. No hydronephrosis. The spleen is normal in size. No other retroperitoneal or intra-abdominal abnormalities. IMPRESSION: 1. Somewhat limited exam due to the patient's size, body habitus, and bowel gas 2. Nonvisualization of the gallbladder consistent with the patient's surgical history 3. Bilateral renal cysts number 4 6-mm echogenic density within the medullary region of the left kidney. A small calculus cannot be excluded. No hydronephrosis.
[2017-11-11] MEDS: POLYETHYLENE GLYCOL 3350 17 GM PACK PO SCH (14:22)
[2017-11-11] MEDS: Potassium Chloride 20 mEq ER Tab PO SCH (14:23)
[2017-11-12] MEDS: Ferrous Sulfate 325 MG TAB PO SCH ×3 (09:28→21:02)
[2017-11-12] MEDS: POLYETHYLENE GLYCOL 3350 17 GM PACK PO SCH (09:30)
[2017-11-12] MEDS: Pantoprazole 40 mg EC Tab PO SCH ×2 (09:30→16:13)
[2017-11-12] MEDS: Potassium Chloride 20 mEq ER Tab PO SCH (11:30)
[2017-11-13] MEDS: Ferrous Sulfate 325 MG TAB PO SCH ×3 (09:07→21:03)
[2017-11-13] MEDS: Pantoprazole 40 mg EC Tab PO SCH ×2 (09:09→16:51)
[2017-11-13] MEDS: POLYETHYLENE GLYCOL 3350 17 GM PACK PO SCH (09:09)
[2017-11-13] MEDS: Potassium Chloride 20 mEq ER Tab PO SCH (09:10)
--- NOTE | 2017-11-13 11:10 | Progress Notes ---
DATE: 11/12/2017 SUBJECTIVE: The patient was seen and evaluated. The patient's chart reviewed. This is Dr. Mullen covering for Dr. Singh. IDENTIFYING DATA: This is a 77-year-old female who was transferred here from [facility]. She has been agitated and hallucinating. Today on [id number] evaluation, the patient reports that she rather not discuss what brought her here because people were conspiring against her and thus if the more she disclose this, the more in trouble she is. MENTAL STATUS EXAMINATION: Psychotic, disorganized, suspicious, paranoid. CURRENT MEDICATIONS: Reviewed, which include albuterol, amlodipine, bisacodyl, Colace, ferrous sulfate, hydrochlorothiazide, metoprolol, pantoprazole, simvastatin. Collateral demonstrate the patient's family were notified that she quit and started Abilify to target the patient's ongoing psychotic symptoms. ASSESSMENT AND PLAN: The patient is a 77-year-old female who presents delusional, believing that people are conspiring against her. After discussing the risks and benefits, we will start the patient on low dose of Abilify to target the patient's symptoms and her delusions and paranoia. JOB# [id number]
--- NOTE | 2017-11-13 12:43 | Progress Notes ---
DATE: 11/13/2017 SUBJECTIVE: The patient was seen and evaluated. The patient's chart reviewed. Today on [id number] evaluation, the patient continues to perseverate that there are people here trying to kill her and other roommates. MENTAL STATUS EXAMINATION: Psychotic, disorganized, believing that people here to hurt others. ASSESSMENT AND PLAN: The patient continues to feel distraught, overwhelmed, because of the paranoia. We will continue with the current ____ addition of the Abilify to target the patient's severe symptoms. JOB# [id number]
[2017-11-14] MEDS: Potassium Chloride 20 mEq ER Tab PO SCH (08:52)
[2017-11-14] MEDS: POLYETHYLENE GLYCOL 3350 17 GM PACK PO SCH (08:52)
[2017-11-14] MEDS: Ferrous Sulfate 325 MG TAB PO SCH ×3 (08:54→21:16)
[2017-11-14] MEDS: Pantoprazole 40 mg EC Tab PO SCH ×2 (09:45→17:01)
--- NOTE | 2017-11-14 22:28 | Progress Notes ---
DATE: 11/14/2017 SUBJECTIVE: Case was discussed with staff of the patient, reviewed records. The patient has been paranoid, believes her people are trying to harm her and her other roommates. Continues to be disorganized. Continues to be unpredictable, impulsive at times tangential. She cannot remember me, ____ Tuesday, though she keeps ____ safe. She has been compliant with the medication with no side effects, no sedation, no nausea, no extrapyramidal symptoms. Adding Abilify to her medication discussed side effects and we will continue the patient in group therapy, milieu therapy, adjusting medication as needed. JOB# [id number]
[2017-11-15 08:10] LABS: ANION GAP 8.9 (7.0-16.0); BUN - UREA NITROGEN 29 mg/dL (7-25); CALCIUM SERUM 9.1 mg/dL (8.6-10.3); CARBON DIOXIDE 29.2 mEq/L (21.0-31.0); CHLORIDE 105 mEq/L (98-107); GLUCOSE 112 mg/dL (70-105); POTASSIUM SERUM 4.1 mEq/L (3.5-5.1); SODIUM SERUM 139 mEq/L (136-145)
[2017-11-15] MEDS: Pantoprazole 40 mg EC Tab PO SCH ×2 (08:57→16:42)
[2017-11-15] MEDS: Ferrous Sulfate 325 MG TAB PO SCH ×3 (08:57→20:51)
[2017-11-15] MEDS: Potassium Chloride 20 mEq ER Tab PO SCH (09:02)
[2017-11-15] MEDS: POLYETHYLENE GLYCOL 3350 17 GM PACK PO SCH (09:02)
--- NOTE | 2017-11-15 17:25 | Progress Notes ---
DATE: 11/15/2017 PROGRESS ON THE UNIT: Case was discussed with staff of the patient, reviewed records. The patient is reported to be delusional by the staff. She continues to have poor insight, unable to make a safe plan for self-care, easily agitated, she sees things that are not there. She tolerated the Abilify with no side effects and no sedation, no nausea, no extrapyramidal symptoms. PLAN: We will continue to work with the patient in group therapy and milieu therapy, adjust the medications as needed. JOB# [id number]
[2017-11-16] MEDS: Pantoprazole 40 mg EC Tab PO SCH ×2 (09:47→17:52)
[2017-11-16] MEDS: Potassium Chloride 20 mEq ER Tab PO SCH (09:47)
[2017-11-16] MEDS: Ferrous Sulfate 325 MG TAB PO SCH ×3 (09:47→21:29)
[2017-11-16] MEDS: POLYETHYLENE GLYCOL 3350 17 GM PACK PO SCH (10:02)
--- NOTE | 2017-11-17 01:39 | Progress Notes ---
DATE: 11/16/2017 Case was discussed with staff of the patient, reviewed records. The patient continues to be delusional. Continues to have poor insight. Continues to be unable to make safe plan for self-care, unpredictable, impulsive, and needing redirection. She is sleeping well, eating well. No side effects with the medication. No sedation, no nausea, no extrapyramidal symptoms. I will continue to work with the patient in group therapy, milieu therapy, and adjust medications as needed. JOB# [id number]
[2017-11-17] MEDS: Pantoprazole 40 mg EC Tab PO SCH ×2 (08:29→17:21)
[2017-11-17] MEDS: Ferrous Sulfate 325 MG TAB PO SCH ×3 (08:29→21:03)
[2017-11-17] MEDS: Potassium Chloride 20 mEq ER Tab PO SCH (08:30)
[2017-11-17] MEDS: POLYETHYLENE GLYCOL 3350 17 GM PACK PO SCH (08:43)
--- NOTE | 2017-11-17 16:58 | Progress Notes ---
DATE: 11/17/2017 Case was discussed with staff of the patient, reviewed records. The patient continues to be delusional. Continues to have poor insight, unable to make safe plan for self-care. Continues to be unpredictable, impulsive, internally preoccupied. She has been compliant with the medication with no side effects, no sedation or nausea, no extrapyramidal symptoms. Lab work showed low hematocrit at 36.3, the rest within normal range. Chemistry panel was low sodium, but the repeated one was within normal range at 139. BUN is high at 47 and went down to 29. She has a high blood sugar 110. Repeated one was also high at 112. She has high triglyceride at 163, but when it was repeated the next day, it was 129. Urinalysis cloudy, small hemoglobin, trace of leukocyte esterase. I will defer that to the medical doctor. Urine drug screen was negative and RPR nonreactive and increasing Abilify to 7.5 mg daily. We will continue to work with the patient in group therapy, milieu therapy, adjust the medication as needed. JOB# [id number]
[2017-11-18] MEDS: POLYETHYLENE GLYCOL 3350 17 GM PACK PO SCH (09:13)
[2017-11-18] MEDS: Potassium Chloride 20 mEq ER Tab PO SCH (09:18)
[2017-11-18] MEDS: Ferrous Sulfate 325 MG TAB PO SCH ×3 (09:19→21:33)
[2017-11-18] MEDS: Pantoprazole 40 mg EC Tab PO SCH ×2 (09:19→17:49)
[2017-11-18] MEDS ORDERED: Probiotic Screen MC PRN (13:45)
--- NOTE | 2017-11-18 21:10 | Progress Notes ---
DATE: 11/18/2017 Case was discussed with staff of the patient, reviewed records. The patient is a little bit more clear today. She is sleeping well, eating well. She is compliant with the medication with no side effects, no sedation or nausea, no extrapyramidal symptoms. I did increase her Abilify yesterday 7.5 mg at bedtime and she has been easier to redirect and will continue outpatient group therapy, milieu therapy, and adjust medication as needed. JOB# [id number]
[2017-11-19] MEDS: Ferrous Sulfate 325 MG TAB PO SCH ×2 (08:50→14:12)
[2017-11-19] MEDS: Pantoprazole 40 mg EC Tab PO SCH (08:50)
[2017-11-19] MEDS: Potassium Chloride 20 mEq ER Tab PO SCH (08:51)
[2017-11-19] MEDS ORDERED: Lactobacillus Rhamnosus GG 15 Billion CFU CAP.SPRINK PO SCH (09:00)
--- NOTE | 2017-11-20 19:02 | Progress Notes ---
DATE: SUBJECTIVE: The patient was seen and evaluated. The patient's chart reviewed. Overnight, nursing staff reported the patient did engage and participate very well, engaging in her treatment and compliant with medications. As noted by Dr. Singh and also on clarification this morning with her, noted the patient has been sleeping and eating well and becoming more clear. Today on [id number] evaluation, the patient presents more goal oriented, motivated. No suicidal or homicidal, no auditory or visual hallucination. No delusions were noted. MENTAL STATUS EXAMINATION: At the time of seeing, she was calm, engaging, no suicidal or homicidal ideation, no delusion. ASSESSMENT AND PLAN: The patient who has ____ back to the half-way, convalescent. She will be discharged today. Full discharge summary to follow by Dr. Singh. [facility]# [id number]
--- NOTE | 2017-11-25 12:49 | Discharge Summary ---
DATE OF DISCHARGE: 11/19/2017 DISPOSITION: Back to the SNF facility. IDENTIFYING INFORMATION: The patient is a 77-year-old female. CHIEF COMPLAINT: "They are trying to get rid of me." HISTORY OF PRESENT ILLNESS: The patient was referred from [facility] as the patient apparently has been agitated. They are trying to get rid of her. She is not sure why she is here other than they are trying to get rid of her. She was paranoid. She sleeps well. She eats well. Denies any current intent to harm self or anyone. Denies any auditory or visual hallucination. She has a history of depression, was on Zoloft 50 mg a day. No prior suicide attempt. Never hospitalized before; however, she is not a good historian. ALLERGIES: THE PATIENT HAS MULTIPLE ALLERGIES TO CODEINE, IODINE, ONDANSETRON, PENICILLIN, SULFONAMIDE AND TRAMADOL. COURSE IN THE HOSPITAL: The patient was diagnosed with major depression, recurrent with psychosis. The patient was continued with the Zoloft, amlodipine, benazepril, simvastatin, albuterol inhaler and meclizine and iron, metoprolol, pantoprazole, potassium, omeprazole, hydrochlorothiazide for her medical condition. The patient also was given antibiotic. I initiated Abilify on her because she was delusional, I increase the dose to 7.5 mg at bedtime. The patient progressively got better and her son wanted her to go back to the nursing facility as she was going to lose her place, ____ she improved, she was feeling better, sleeping well, eating well. No acting out behavior. She stayed mostly in her bed. We felt she could be discharged to a lesser level of care. FINAL DIAGNOSES: Major depression, recurrent with psychosis. MEDICAL DIAGNOSES: As per medical doctor, the patient will be going back to nursing facility. The patient needs to follow up with the psychiatrist on discharge and a therapist. [facility]# [id number]
== END 2017-11-19 16:05 | DRG 885 ==
LOC: ER 18:14 → GERO 19:40
PROVIDERS: ADMIT Psychiatry & Neurology Psychiatry; ATTEND Psychiatry & Neurology Psychiatry
DX: F33.9 Major depressive disorder, recurrent, unspecified (principal); N39.0 Urinary tract infection, site not specified; I25.10 Atherosclerotic heart disease of native coronary artery without angina pectoris; F41.9 Anxiety disorder, unspecified; G89.29 Other chronic pain; M25.552 Pain in left hip; I10 Essential (primary) hypertension; E11.9 Type 2 diabetes mellitus without complications; R10.9 Unspecified abdominal pain; E86.0 Dehydration; J45.909 Unspecified asthma, uncomplicated; D64.9 Anemia, unspecified; K21.9 Gastro-esophageal reflux disease without esophagitis; Z88.5 Allergy status to narcotic agent; Z88.0 Allergy status to penicillin; Z88.2 Allergy status to sulfonamides; Z88.8 Allergy status to other drugs, medicaments and biological substances; Z91.041 Radiographic dye allergy status; Z90.49 Acquired absence of other specified parts of digestive tract; Z90.710 Acquired absence of both cervix and uterus
CPT/HCPCS: 36415-UA; 74000-TC; 76700-TC; 80048-TC; 80053-TC; 80061-TC; 80307; 80320-TC; 80329-TC; 81001-TC; 82948-90; 83036-90; 83735-TC; 84443-TC; 85025-TC; 86592-TC; 93005; 97530; X3904; Z7610